=== PATIENT | female | born 1940 | race Caucasian/White ===

== ENCOUNTER 2016-11-06 11:53 | Emergency (ER) | payer OTHER ==
[2016-11-06 12:02] VITALS: BP 139/68; PULSE 83; TEMP 98.2; BMI 27.3
--- NOTE | 2016-11-06 12:31 | PDOC ---
History of Present Illness - General Chief Complaint: Headache Stated Complaint: HEADACHE Time Seen by Provider: 11/06/16 12:29 History Source: Patient Exam Limitations: No Limitations - History of Present Illness Initial Comments: 11/06/16 12:31 CHIEF COMPLAINT: Headache HISTORY OF PRESENT ILLNESS: This is a 76 year old female with a history of NIDDM , HTN, HLD, and ?CVA vs TIA (family report that she had right-sided weakness and facial droop which resolved, Aggrenox is on medication list) who presents complaining of four days of headache. Pain started in the right side of her head but is now generalized. She has associated intermittent blurred vision and dizziness. She reports left arm numbness and to a lesser degree, left leg numbness. She denies focal weakness, change in speech, nausea/vomiting, fevers/ chills, difficulty ambulating, or any other symptoms. She has had similar headaches before, but they usually resolve quickly. This one has not improved with Tylenol. PCP is Dr. Anne REVIEW OF SYSTEMS: GENERAL/CONSTITUTIONAL: No fever or chills. No weakness. No weight change. HEAD, EYES, EARS, NOSE AND THROAT: Intermittent blurred vision. No ear pain or discharge. No sore throat. CARDIOVASCULAR: No chest pain or palpitations. RESPIRATORY: No cough, wheezing, or shortness of breath. GASTROINTESTINAL: No nausea, vomiting, diarrhea or constipation. GENITOURINARY: No dysuria, frequency, or change in urination. MUSCULOSKELETAL: No joint or muscle swelling or pain. No neck or back pain. SKIN: No rash or easy bruising. NEUROLOGIC: See HPI. PSYCHIATRIC: No depression or anxiety. ENDOCRINE: No increased thirst. No abnormal weight change. HEMATOLOGIC/LYMPHATIC: No anemia, easy bleeding, or history of blood clots. ALLERGIC/IMMUNOLOGIC: No hives or skin allergy. No latex allergy. PHYSICAL EXAM: GENERAL: The patient is awake, alert, and fully oriented, in no acute distress. HEAD: Normal with no signs of trauma. ENT: Pupils equal, round and reactive to light, extraocular movements intact, sclera anicteric, conjunctiva clear. Neck supple. LUNGS: Clear to auscultation bilaterally. Normal excursion. No respiratory distress or use of accessory muscles. CV: RRR, S1/S2, no MRG. Cap refill < 2 sec. ABDOMEN: Soft, non-distended, non-tender. EXTREMITIES: Normal range of motion, no edema. NEUROLOGICAL: Normal speech, normal gait. CN II-XII grossly intact. PSYCH: Normal mood, normal affect. SKIN: Warm, dry, normal turgor, no rashes or lesions noted. NIH Stroke Scale - Last Known Well Date/Time & Onset Date Last Known Well: 11/02/16 - Initial Evaluation Level of consciousness: Alert Ask patient the month and their age: Answers both correctly Ask patient to open & close eyes; make fist and let go: Obeys both correctly Best gaze (horizontal eye movement): Normal Visual field testing: No visual field loss Facial paresis (Show teeth/raise eyebrows/close eyes tight): Normal symmetrical movement Motor Function: Left Arm: Normal Motor Function: Right Arm: Normal (extends arm 90 (or 45) degrees for 10 seconds without drift Motor Function: Left Leg: Normal (extends leg 30 degrees for 5 seconds without drift) Motor Function: Right Leg: Drift Limb Ataxia: No ataxia Sensory(Use pinprick test arms,legs,trunk,face/side to side): Normal Best language (Describe picture, name items, read sentences): No Aphasia Dysarthria (read several words): Normal articulation Extinction and Inattention: No abnormality - Total Score NIH Stroke Scale Score: 1 Past History - Past Medical History Allergies/Adverse Reactions: Allergies Allergy/AdvReac Type Severity Reaction Status Date / Time No Known Allergies Allergy Verified 11/06/16 11:59 Home Medications: Ambulatory Orders Aspirin/Dipyridamole [Aggrenox -] 1 combo PO BID 10/21/15 Carvedilol [Coreg] 6.25 mg PO BID 10/21/15 Glipizide 10 mg PO BID 10/21/15 Lisinopril [Prinivil] 10 mg PO DAILY 10/21/15 Omeprazole 20 mg PO DAILY 10/21/15 Rosuvastatin Calcium [Crestor] 10 mg PO HS 10/21/15 Sitagliptin Phosphate [Januvia] 100 mg PO DAILY 10/21/15 Ursodiol [Actigall] 300 mg PO BID 10/21/15 Meclizine HCl 25 mg PO TID #30 tablet 10/22/15 Diabetes: Yes GI Disorders: Yes (gerd) HTN: Yes Hypercholesterolemia: Yes Suicide Attempt (Hx): No - Surgical History Cholecystectomy: Yes (TRANSFUSED) Orthopedic Surgery: Yes (HIP SX RIGHT) - Immunization History Immunization Up to Date: Yes - Psycho/Social/Smoking Cessation Hx Anxiety: No Suicidal Ideation: No Smoking History: Never smoked Have you smoked in the past 12 months: No Information on smoking cessation initiated: No Hx Alcohol Use: No Drug/Substance Use Hx: No Substance Use Type: None *Physical Exam - Vital Signs Last Vital Signs Temp Pulse Resp BP Pulse Ox 98.2 F 83 17 139/68 98 11/06/16 11:59 11/06/16 11:59 11/06/16 11:59 11/06/16 11:59 11/06/16 11:59 ED Treatment Course - LABORATORY CBC & Chemistry Diagram: 11/06/16 13:18 11/06/16 13:18 Medical Decision Making - Medical Decision Making 11/06/16 13:35 A/P: 76 year old female with headache, blurred vision, and left leg and arm numbness. Concerning for CVA, but well outside TPA window. 1. EKG 2. Head CT 3. Cardiac labs 4. Reglan/Benadryl for headache 5. Re-assess 11/06/16 14:[address]: No acute intracranial process. 11/06/16 16:[address] Hernandez. No indication for admission. Recommends adding ESR/ CRP. CRP is <0.3. Will dc with office followup. Reviewed with family who feel comfortable with this plan. *DC/Admit/Observation/Transfer Diagnosis at time of Disposition: Left upper extremity numbness Headache Qualifiers: Headache type: unspecified Headache chronicity pattern: acute headache Intractability: not intractable Qualified Code(s): R51 - Headache - Discharge Dispostion Disposition: HOME Condition at time of disposition: Improved Admit: No - Referrals Referrals: Kathleen Anne [Primary Care Provider] - Lefty Hernandez MD [Staff Physician] - Call tomorrow (Neurologist) - Patient Instructions Printed Discharge Instructions: DI for Headache Additional Instructions: -Continue all of your prescribed medications -Follow up with your primary care doctor as well as a neurologist (referral enclosed) this week -Return for worsening headache, weakness in the arms or legs, change in speech, or any other concerning symptoms Print Language: MAORI
[2016-11-06] MEDS ORDERED: METOCLOPRAMIDE HCL INJECTION 10 MG/2 ML VIAL IVPB ONE (13:09)
[2016-11-06] MEDS ORDERED: SODIUM CHLORIDE 1,000 ML IV SCH (13:15)
[2016-11-06] MEDS ORDERED: METOCLOPRAMIDE HCL INJECTION 10 MG/2 ML VIAL ONE (13:30)
[2016-11-06 13:36] LABS: BASOPHIL 0.6 % (0-2.0); EOSINOPHIL 0.1 % (0-4.5); MCH 29.7 pg (25.7-33.7); MCHC 33.9 g/dl (32.0-36.0); MEAN CELL VOLUME 87.7 fl (80-96); MEAN PLT VOLUME 7.8 fl (7.5-11.1); NEUTROPHILS 66.7 % (42.8-82.8); PLATELET COUNT 235 K/MM3 (134-434); RDW 14.1 % (11.6-15.6); WHITE BLOOD COUNT 4.7 K/mm3 (4.0-10.0)
[2016-11-06 13:53] LABS: CALCIUM 8.3 mg/dL (8.5-10.1)
[2016-11-06 13:59] LABS: ALBUMIN 3.4 g/dl (3.4-5.0); ANION GAP 9 (8-16); BILIRUBIN,TOTAL 0.4 mg/dL (0.2-1.0); CHOLESTEROL 140 mg/dL (50-200); CO2 26 mmol/L (21-32); CPK 89 IU/L (26-192); CREATININE 0.6 mg/dL (0.55-1.02); GLUCOSE,RANDOM 214 mg/dL (74-106); SGOT/AST 22 U/L (15-37); SGPT/ALT 22 U/L (12-78); TOT PROT 6.8 g/dl (6.4-8.2)
[2016-11-06 14:02] LABS: ALK PHOS 90 U/L (45-117); TROPONIN I < 0.02 ng/ml (0.00-0.05)
[2016-11-06 14:09] LABS: INR 1.04 (0.82-1.09); PROTHROMBIN TIME (PATIENT) 11.5 SEC (9.98-11.88)
[2016-11-06 14:37] LABS: URINE APPEARANCE CLEAR; URINE BILIRUBIN NEGATIVE (NEGATIVE); URINE BLOOD 1+ (NEGATIVE); URINE COLOR STRAW; URINE GLUCOSE (UA) 2+ (NEGATIVE); URINE KETONE NEGATIVE (NEGATIVE); URINE LEUK ESTERASE NEGATIVE (NEGATIVE); URINE NITRITE NEGATIVE (NEGATIVE); URINE PROTEIN NEGATIVE (NEGATIVE); URINE UROBILINOGEN NEGATIVE mg/dL (0.2-1.0)
[2016-11-06 14:38] LABS: LDL CHOLESTEROL (ONLY SJRH) 65 mg/dL (5-100)
[2016-11-06 14:56] LABS: URINE BACTERIA RARE /hpf (NONE SEEN); URINE RBC 1 /hpf (0-3); URINE WBC 1 /hpf (3-5)
[2016-11-06 15:25] LABS: C-REACTIVE PROTEIN < 0.3 MG/DL (0.00-0.3)
--- NOTE | 2016-11-06 17:45 | EKG ---
Test Reason : Blood Pressure : / mmHG Vent. Rate : 080 BPM Atrial Rate : 080 BPM P-R Int : 168 ms QRS Dur : 078 ms QT Int : 386 ms P-R-T Axes : 052 025 073 degrees QTc Int : 445 ms NORMAL SINUS RHYTHM NORMAL ECG WHEN COMPARED WITH ECG OF 18-MAY-2014 01:22, NO SIGNIFICANT CHANGE WAS FOUND Confirmed by PIA MCINTOSH MD ([id number]) on 11/06/2016 5:45:01 PM Referred By: Confirmed By:PIA MCINTOSH MD
== END 2016-11-06 16:40 | disposition home or self-care (01) ==
LOC: JER 11:53
PROC: 3E033GC Introduction of Other Therapeutic Substance into Peripheral Vein, Percutaneous Approach (ICD-10-PCS; principal; 2016-11-06)
DX: R51 Headache (principal); R20.0 Anesthesia of skin; I10 Essential (primary) hypertension; E11.9 Type 2 diabetes mellitus without complications; Z79.84 Long term (current) use of oral hypoglycemic drugs; E78.00 Pure hypercholesterolemia, unspecified
CPT/HCPCS: 36415; 70450-TC; 80053; 81003; 81015; 82465; 83718; 83721; 84478; 84484; 85025; 85610; 85651; 86140; 86850; 86900; 86901; 93005; 93010; 96374; 96375; 99282-25

== ENCOUNTER 2016-11-29 11:34 | Emergency (ER) | payer OTHER ==
[2016-11-29 11:42] VITALS: BP 151/75; PULSE 92; TEMP 98; BMI 27.1
--- NOTE | 2016-11-29 12:16 | PDOC ---
History of Present Illness - General Chief Complaint: Urinary Problem Stated Complaint: FEVER, URINARY BURNING SENSATION Time Seen by Provider: 11/29/16 11:48 History Source: Patient - History of Present Illness Timing/Duration: reports: constant Quality: reports: burning Past History - Past Medical History Allergies/Adverse Reactions: Allergies Allergy/AdvReac Type Severity Reaction Status Date / Time No Known Allergies Allergy Verified 11/29/16 11:41 Home Medications: Ambulatory Orders Aspirin/Dipyridamole [Aggrenox -] 1 combo PO BID 10/21/15 Carvedilol [Coreg] 6.25 mg PO BID 10/21/15 Glipizide 10 mg PO BID 10/21/15 Lisinopril [Prinivil] 10 mg PO DAILY 10/21/15 Omeprazole 20 mg PO DAILY 10/21/15 Rosuvastatin Calcium [Crestor] 10 mg PO HS 10/21/15 Sitagliptin Phosphate [Januvia] 100 mg PO DAILY 10/21/15 Ursodiol [Actigall] 300 mg PO BID 10/21/15 Meclizine HCl 25 mg PO TID #30 tablet 10/22/15 Cephalexin [Keflex] 500 mg PO BID #14 capsule 11/29/16 Diabetes: Yes GI Disorders: Yes (gerd) HTN: Yes Hypercholesterolemia: Yes Suicide Attempt (Hx): No - Surgical History Cholecystectomy: Yes Orthopedic Surgery: Yes (HIP SX RIGHT) - Immunization History Immunization Up to Date: Yes - Psycho/Social/Smoking Cessation Hx Anxiety: No Suicidal Ideation: No Smoking History: Never smoked Have you smoked in the past 12 months: No Hx Alcohol Use: No Drug/Substance Use Hx: No Substance Use Type: None Review of Systems - Review of Systems Constitutional: No: Chills, Fever ABD/GI: No: Nausea, Vomiting : Yes: Dysuria. No: Flank Pain, Hematuria *Physical Exam - Vital Signs Last Vital Signs Temp Pulse Resp BP Pulse Ox 98.0 F 92 H 20 151/75 98 11/29/16 11:37 11/29/16 11:37 11/29/16 11:37 11/29/16 11:37 11/29/16 11:37 - Physical Exam General Appearance: Yes: Appropriately Dressed. No: Apparent Distress HEENT: positive: Normal Voice Neck: positive: Supple Respiratory/Chest: negative: Respiratory Distress Gastrointestinal/Abdominal: positive: Soft. negative: Tender Musculoskeletal: negative: CVA Tenderness Integumentary: positive: Dry, Warm Neurologic: positive: Fully Oriented, Alert, Normal Mood/Affect Medical Decision Making - Medical Decision Making 11/29/16 12:13 76-year-old female, history of NIDDM, HTN, HLD, GERD, UTIs, here with burning with urination 4 days. Denies hematuria, flank pain, nausea, vomiting, fever or chills. No history of kidney stones See exam Dysuria Stable and well deysi w/ no e/o pyelo No h/o renal stones -ua/cx 11/29/16 12:47 UA w/ protein, leuks and bld on ua. Will treat (prior sensitivity reviewed). Reasons to return d/w pt and family 11/29/16 12:48 *DC/Admit/Observation/Transfer Diagnosis at time of Disposition: UTI (urinary tract infection) Qualifiers: Urinary tract infection type: acute cystitis Hematuria presence: without hematuria Qualified Code(s): N30.00 - Acute cystitis without hematuria - Discharge Dispostion Disposition: HOME Condition at time of disposition: Good - Prescriptions Prescriptions: Cephalexin [Keflex] 500 mg PO BID #14 capsule - Referrals Referrals: Kathleen Anne [Primary Care Provider] - - Patient Instructions Printed Discharge Instructions: Urinary Tract Infection Additional Instructions: Take antibiotics as directed and return for worsening of symptoms Otherwise, follow up with your PMD
[2016-11-29 12:30] LABS: URINE APPEARANCE TURBID; URINE BILIRUBIN NEGATIVE (NEGATIVE); URINE BLOOD 2+ (NEGATIVE); URINE COLOR AMBER; URINE GLUCOSE (UA) 3+ (NEGATIVE); URINE KETONE NEGATIVE (NEGATIVE); URINE NITRITE NEGATIVE (NEGATIVE); URINE UROBILINOGEN NEGATIVE mg/dL (0.2-1.0)
[2016-11-29 12:31] LABS: URINE LEUK ESTERASE 2+ (NEGATIVE); URINE PROTEIN 1+ (NEGATIVE)
[2016-11-29 12:43] LABS: URINE BACTERIA MANY /hpf (NONE SEEN); URINE RBC 10 /hpf (0-3); URINE WBC 4342 /hpf (3-5)
== END 2016-11-29 13:04 | disposition home or self-care (01) ==
LOC: JERFT 11:34
DX: N30.00 Acute cystitis without hematuria (principal); I10 Essential (primary) hypertension; E11.9 Type 2 diabetes mellitus without complications; Z79.84 Long term (current) use of oral hypoglycemic drugs; K21.9 Gastro-esophageal reflux disease without esophagitis; E78.00 Pure hypercholesterolemia, unspecified
CPT/HCPCS: 81003; 81015; 87086; 87186; 99281-25

== ENCOUNTER 2017-02-03 16:19 | Inpatient (IN) | payer OTHER ==
[2017-02-03 16:34] LABS: PH,URINE 7.5 (4.5-8); URINE BILIRUBIN Negative (NEGATIVE); URINE GLUCOSE (UA) Negative (NEGATIVE); URINE KETONE Negative (NEGATIVE); URINE NITRITE Negative (NEGATIVE); URINE UROBILINOGEN 0.2 (0.2-1.0)
[2017-02-03 16:35] LABS: URINE APPEARANCE HAZY; URINE BLOOD Trace-intact (NEGATIVE); URINE COLOR YELLOW; URINE LEUK ESTERASE TRACE (NEGATIVE); URINE PROTEIN 2+ (NEGATIVE)
[2017-02-03] MEDS ORDERED: SODIUM CHLORIDE 0.9% 1000 ML INFUS.BAG IV ONE ×2 (16:39→18:30)
[2017-02-03 16:40] LABS: URINE BACTERIA FEW /hpf (NEGATIVE)
[2017-02-03] MEDS ORDERED: ONDANSETRON 4 MG/2 ML VIAL ONE (16:54)
[2017-02-03] MEDS ORDERED: MECLIZINE HCL 25 MG TABLET (FP) PO ONE (17:01)
[2017-02-03] MEDS ORDERED: ONDANSETRON 4 MG/2 ML VIAL IVPUSH ONE (17:01)
[2017-02-03] MEDS ORDERED: MECLIZINE HCL 25 MG TABLET (FP) ONE (17:05)
--- NOTE | 2017-02-03 17:06 | PDOC ---
History of Present Illness - General History Source: Patient, Family, Old Records Exam Limitations: No Limitations - History of Present Illness Initial Comments: 02/03/17 17:09 The patient is a 77 year old female, accompanied by family member, with a past medical history of DM, GERD, hypertension, hyperlipidemia, and gallstones who presents to the emergency department today with cold like symptoms for one week. The patient reports subjective fever and chills, dysuria, back and flank pain, left arm numbness, headache, nausea, vertigo and lightheadedness. The patient states that she has had pain when urinating for one week. The patient states that her muscle pain ,nausea, vertigo, and lightheadedness began this morning. The patient states that she took 8 tylenol this AM with minimal relief of symptoms. Patient notes decreased appetite but denies vomiting. <Lc Calderon - Last Filed: 02/03/17 17:09> <Parisa Grady - Last Filed: 02/03/17 17:23> <Duyen Ramon - Last Filed: 02/03/17 22:37> - General Chief Complaint: Cold Symptoms Stated Complaint: fever,chills Past History <Lc Calderon - Last Filed: 02/03/17 17:09> - Past Medical History Diabetes: Yes GI Disorders: Yes (gerd) HTN: Yes Hypercholesterolemia: Yes - Surgical History Cholecystectomy: Yes Orthopedic Surgery: Yes (HIP SX RIGHT) - Immunization History Immunization Up to Date: Yes - Suicide/Smoking/Psychosocial Hx Smoking History: Never smoked Have you smoked in the past 12 months: No Hx Alcohol Use: No Drug/Substance Use Hx: No Substance Use Type: None <Parisa Grady - Last Filed: 02/03/17 17:23> <Duyen Ramon - Last Filed: 02/03/17 22:37> - Past Medical History Allergies/Adverse Reactions: Allergies Allergy/AdvReac Type Severity Reaction Status Date / Time No Known Allergies Allergy Verified 02/03/17 16:20 Home Medications: Ambulatory Orders Carvedilol [Coreg] 6.25 mg PO BID 10/21/15 Glipizide 10 mg PO BID 10/21/15 Lisinopril [Prinivil] 10 mg PO DAILY 10/21/15 Omeprazole 20 mg PO DAILY 10/21/15 Rosuvastatin Calcium [Crestor] 10 mg PO HS 10/21/15 Sitagliptin Phosphate [Januvia] 100 mg PO DAILY 10/21/15 Clopidogrel Bisulfate [Plavix -] 75 mg PO DAILY 02/03/17 Gabapentin [Neurontin -] 100 mg PO BID 02/03/17 Review of Systems - Review of Systems Able to Perform ROS?: Yes Comments:: 02/03/17 17:09 GENERAL/CONSTITUTIONAL: (+) Fever or chills. No weakness. HEAD, EYES, EARS, NOSE AND THROAT: No change in vision. No ear pain or discharge. No sore throat. GASTROINTESTINAL: (+) Nausea. No vomiting, diarrhea or constipation. GENITOURINARY: (+) dysuria. No frequency, or change in urination. CARDIOVASCULAR: No chest pain or shortness of breath. RESPIRATORY: No cough, wheezing, or hemoptysis. MUSCULOSKELETAL: (+) Back pain. SKIN: No rash NEUROLOGIC: (+) headache, vertigo, left arm numbness. No loss of consciousness ENDOCRINE:(+) No increased thirst. No abnormal weight change. Decreased appetite HEMATOLOGIC/LYMPHATIC: No anemia, easy bleeding, or history of blood clots. ALLERGIC/IMMUNOLOGIC: No hives or skin allergy. <Lc Calderon - Last Filed: 02/03/17 17:09> *Physical Exam - Vital Signs Last Vital Signs Temp Pulse Resp BP Pulse Ox 98.5 F 96 H 17 94/46 98 02/03/17 16:20 02/03/17 16:20 02/03/17 16:20 02/03/17 16:54 02/03/17 16:20 - Physical Exam Comments: 02/03/17 17:10 GENERAL: Awake, alert, and fully oriented, in no acute distress HEAD: No signs of trauma EYES: PERRLA, EOMI, sclera anicteric, conjunctiva clear ENT: Auricles normal inspection, nares patent, Moist mucosa NECK: Normal ROM, supple, no lymphadenopathy, JVD, or masses LUNGS: Breath sounds equal, clear to auscultation bilaterally. No wheezes, and no crackles HEART: Regular rate and rhythm, normal S1 and S2, no murmurs, rubs or gallops ABDOMEN: (+) Soft, nontender, b/l CVA tenderness normoactive bowel sounds. No guarding, no rebound. No masses EXTREMITIES: Normal range of motion, no edema. No clubbing or cyanosis. No cords, erythema, or tenderness NEUROLOGICAL: Normal speech positive michelle halls [place] to the left with horizontal nystagmus, normal gait SKIN: Warm, Dry, normal turgor, no rashes or lesions noted. <Lc Calderon - Last Filed: 02/03/17 17:09> - Vital Signs Last Vital Signs Temp Pulse Resp BP Pulse Ox 98.5 F 96 H 17 94/46 98 02/03/17 16:20 02/03/17 16:20 02/03/17 16:20 02/03/17 16:54 02/03/17 16:20 <Parisa Grady - Last Filed: 02/03/17 17:23> - Vital Signs Last Vital Signs Temp Pulse Resp BP Pulse Ox 98.5 F 81 17 104/48 98 02/03/17 16:20 02/03/17 18:24 02/03/17 16:20 02/03/17 18:35 02/03/17 18:24 <Duyen Ramon - Last Filed: 02/03/17 22:37> Heart Score/ECG Review #1 General ECG Interpretation: Sinus Rhythm, Normal Rate (86), Normal Intervals, No acute ischemic changes <Parisa Grady - Last Filed: 02/03/17 17:23> ED Treatment Course - LABORATORY CBC & Chemistry Diagram: 02/03/17 16:53 02/03/17 16:53 - ADDITIONAL ORDERS Additional order review: Laboratory Results 02/03/17 16:29 Urine Color Yellow Urine Appearance Hazy Urine pH 7.5 Ur Specific [place] 1.015 Urine Protein 2+ H Urine Glucose (UA) Negative Urine Ketones Negative Urine Blood Trace-intact H Urine Nitrite Negative Urine Bilirubin Negative Urine Urobilinogen 0.2 Ur Leukocyte Esterase Trace H Urine RBC 5-10 Urine WBC 5-10 Ur Epithelial Cells Few Amorphous Urates Few Urine Bacteria Few - Medications Given in the ED: ED Medications Discontinued Medications Generic Name Dose Route Start Last Admin Trade Name Freq PRN Reason Stop Dose Admin Meclizine HCl 25 mg 02/03/17 17:01 02/03/17 17:07 Antivert - PO 02/03/17 17:02 25 mg ONCE ONE Administration Ondansetron HCl 4 mg 02/03/17 17:01 02/03/17 17:07 Zofran Injection IVPUSH 02/03/17 17:02 4 mg ONCE ONE Administration Sodium Chloride 1,000 ml 02/03/17 16:39 02/03/17 16:54 Normal Saline - IV 02/03/17 16:40 1,000 ml ONCE ONE Administration <Lc Calderon - Last Filed: 02/03/17 17:09> - LABORATORY CBC & Chemistry Diagram: 02/03/17 16:53 02/03/17 16:53 - ADDITIONAL ORDERS Additional order review: Laboratory Results 02/03/17 16:29 Urine Color Yellow Urine Appearance Hazy Urine pH 7.5 Ur Specific [place] 1.015 Urine Protein 2+ H Urine Glucose (UA) Negative Urine Ketones Negative Urine Blood Trace-intact H Urine Nitrite Negative Urine Bilirubin Negative Urine Urobilinogen 0.2 Ur Leukocyte Esterase Trace H Urine RBC 5-10 Urine WBC 5-10 Ur Epithelial Cells Few Amorphous Urates Few Urine Bacteria Few - RADIOLOGY Radiology Studies Ordered: Category Date Time Status HEAD CT WITHOUT CONTRAST [CT] Stat CT Scan 02/03/17 17:01 Ordered CHEST PA & LAT [RAD] Stat Radiology 02/03/17 16:26 Taken - Medications Given in the ED: ED Medications Discontinued Medications Generic Name Dose Route Start Last Admin Trade Name Freq PRN Reason Stop Dose Admin Sodium Chloride 1,000 ml 02/03/17 16:39 02/03/17 16:54 Normal Saline - IV 02/03/17 16:40 1,000 ml ONCE ONE Administration <Parisa Grady - Last Filed: 02/03/17 17:23> - LABORATORY CBC & Chemistry Diagram: 02/03/17 16:53 02/03/17 16:53 - ADDITIONAL ORDERS Additional order review: Laboratory Results 02/03/17 02/03/17 02/03/17 17:02 16:53 16:29 Sodium 129 L Potassium 4.5 Chloride 97 L Carbon Dioxide 23 Anion Gap 9 BUN 18 Creatinine 1.3 Creat Clearance w eGFR 39.51 Random Glucose 236 H Calcium 8.8 Total Bilirubin 0.3 AST 19 ALT 13 Alkaline Phosphatase 64 Creatine Kinase 66 Troponin I < 0.03 L Total Protein 6.7 Albumin 3.7 Urine Color Yellow Urine Appearance Hazy Urine pH 7.5 Ur Specific [place] 1.015 Urine Protein 2+ H Urine Glucose (UA) Negative Urine Ketones Negative Urine Blood Trace-intact H Urine Nitrite Negative Urine Bilirubin Negative Urine Urobilinogen 0.2 Ur Leukocyte Esterase Trace H Urine RBC 5-10 Urine WBC 5-10 Ur Epithelial Cells Few Amorphous Urates Few Urine Bacteria Few 02/03/17 17:06 Influenza Types A,B Antigen (ANIRUD[facility]) - Preliminary Nasopharyngeal Swab - Preliminary 02/03/17 16:53 RBC 3.84 MCV 87.9 MCHC 34.5 RDW 14.6 MPV 8.3 Neutrophils % 88.5 H Lymphocytes % 6.2 L Monocytes % 5.2 Eosinophils % 0.1 Basophils % 0.0 - Medications Given in the ED: ED Medications Discontinued Medications Generic Name Dose Route Start Last Admin Trade Name Freq PRN Reason Stop Dose Admin Ceftriaxone Sodium 1 gm/ 50 mls @ 100 mls/hr 02/03/17 18:46 02/03/17 19:01 Dextrose IVPB 02/03/17 19:15 100 mls/hr ONCE ONE Administration Meclizine HCl 25 mg 02/03/17 17:01 02/03/17 17:07 Antivert - PO 02/03/17 17:02 25 mg ONCE ONE Administration Ondansetron HCl 4 mg 02/03/17 17:01 02/03/17 17:07 Zofran Injection IVPUSH 02/03/17 17:02 4 mg ONCE ONE Administration Sodium Chloride 1,000 ml 02/03/17 16:39 02/03/17 16:54 Normal Saline - IV 02/03/17 16:40 1,000 ml ONCE ONE Administration Sodium Chloride 1,000 ml 02/03/17 18:30 02/03/17 18:35 Normal Saline - IV 02/03/17 18:31 1,000 ml ONCE ONE Administration <Duyen Ramon - Last Filed: 02/03/17 22:37> Medical Decision Making - Medical Decision Making 02/03/17 17:02 77 yo F h/o htn hld, here with vertigo or dizziness. started this am. has had urinary frequency and dysuria x one week. subjective fever and chills. took tylenol at 8 am. no cough. now having flank pain. pt states has headache. has both vertigo and lightheaded component. no chest pain, but left arm tingling. naausea, no vomiting. decreased po intake. on exam normal cerebellar exam gait normal. finger to nose normal. bilat cva tenderness. abd soft nt nd. skin warm and dry. pos josee hallpike to left differential: dehydration anemia electrolyte abnormality, sepsis, pneumonia. vertigo. plan ct head labs septic workup. flu swab. cxr. <Parisa Grady - Last Filed: 02/03/17 17:23> - Medical Decision Making 02/03/17 22:31 I received the patient on signout. She states that she was feeling unwell for the past 5 days. Today in the AM she developed chills and a fever. She took 2 tyylenol at 8am and none since. SHe is afebrile in the ER> SHe complains of head tension and headache and a feeling of "noise" in her head "like a river" Pt also has dizziness and she is nauseous. Pt normally eats very little and she is hypotensive and hyponatremic in the ER. Pt has small leukocytes in her urine and the previous MD wanted to treat her for UTI. Pt receiving rocephin in the ER. CT scan signed out to me. Pt has a mastoiditis. Pt will have blood cultures sent and she will be treated shazia aye as well 1g for the mastoiditis. Pt is feeling better in the ER. However, I will admot for the mastoiditis and parenteral abx as needed. Further neuro eval in the AM as well as LP if deemed necessary. Pt has no neck stiffness in the ER. Her WBC elevation is likely due to the mastoiditis. Pt needs to be further evaluated before we diagnose her with UTI. Pt appears well and her neuro exam is normal at this time. 02/03/17 22:37 Patient Name: NIDIA HOOVER THIS IS A PRELIMINARY REPORT FROM [facility] DATE OF SERVICE: 2017-02-03 18:35:22 IMAGES: 69 EXAM: CT HEAD without contrast HISTORY:77-year-old female vertigo. COMPARISON: None. FINDINGS: No acute intracranial hemorrhage mass effect or midline shift. The ventricles sulci and basilar cisterns are mildly prominent consistent with mild volume loss. Mild nonspecific periventricular predominant low density throughout the deep white matter is most likely due to mild small vessel ischemic white matter disease. Chronic lacunar infarcts in the bilateral basal ganglia. Calcified arteriosclerosis of the cavernous carotids noted. Complete opacification of left mastoid air cells consistent with moderate to severe acute left mastoiditis. The sinuses and right mastoid air cells are clear within the field- of-view. The calvarium is intact. IMPRESSION: Moderate to severe acute left mastoiditis. No acute intracranial hemorrhage mass effect or midline shift. Mild nonspecific periventricular predominant low density throughout the deep white matter is most likely due to mild small vessel ischemic white matter disease. Chronic lacunar infarcts in the bilateral basal ganglia. Calcified arteriosclerosis of the cavernous carotids noted. <Duyen Ramon - Last Filed: 02/03/17 22:37> *DC/Admit/Observation/Transfer - Attestations Scribe Attestion: 02/03/17 17:10 Documentation prepared by Lc Calderon, acting as medical records library professor for Parisa Grady MD. <Lc Calderon - Last Filed: 02/03/17 17:09> <Parisa Grady - Last Filed: 02/03/17 17:23> - Discharge Dispostion Admit: Yes <Duyen Ramon - Last Filed: 02/03/17 22:37> Diagnosis at time of Disposition: Mastoiditis, acute, Hypovolemia, Hyponatremia - Discharge Dispostion Condition at time of disposition: Guarded
[2017-02-03 17:11] LABS: EOSINOPHIL 0.1 % (0-4.5); MCH 30.3 pg (25.7-33.7); MCHC 34.5 g/dl (32.0-36.0); MEAN CELL VOLUME 87.9 fl (80-96); MEAN PLT VOLUME 8.3 fl (7.5-11.1); NEUTROPHILS 88.5 % (42.8-82.8); PLATELET COUNT 238 K/MM3 (134-434); RDW 14.6 % (11.6-15.6); WHITE BLOOD COUNT 12.3 K/mm3 (4.0-10.8)
[2017-02-03 17:19] LABS: ALBUMIN 3.7 g/dl (3.5-5.0); ALK PHOS 64 U/L (32-92); ANION GAP 9 (8-16); BILIRUBIN,TOTAL 0.3 mg/dl (0.2-1.0); CALCIUM 8.8 mg/dl (8.4-10.2); CO2 23 mmol/L (22-28); CREATININE 1.3 mg/dl (0.6-1.3); GLUCOSE,RANDOM 236 mg/dl (74-106); SGOT/AST 19 U/L (10-42); SGPT/ALT 13 U/L (10-40); TOT PROT 6.7 g/dl (6.4-8.3)
[2017-02-03 17:29] LABS: CPK 66 IU/L (26-192)
[2017-02-03 17:39] LABS: TROPONIN I (DFP) < 0.03 ng/ml (0.03-0.50)
[2017-02-03] MEDS ORDERED: CEFTRIAXONE 1 GM in DEXTROSE 5%-WATER - 50 ML IVPB ONE (18:46)
[2017-02-03] MEDS ORDERED: cefTRIAXone SODIUM 1 GM VIAL ONE (18:54)
[2017-02-03] MEDS ORDERED: VANCOMYCIN 1,000 MG in DEXTROSE 5%-WATER - 250 ML IVPB ONE (20:35)
[2017-02-03] MEDS ORDERED: VANCOMYCIN 1,000 MG VIAL (RESTRICTED TO ID ONLY) ONE (20:38)
--- NOTE | 2017-02-03 21:06 | HP ---
CHIEF COMPLAINT: Cold Symptoms, Back/Flank Pain, Vertigo PCP: Doctor not on Staff HISTORY OF PRESENT ILLNESS: This is a 77 y/o woman with a past medical history of Diabetes Mellitus, HTN, HLD, Hypothyroidism, GERD. Who presents to the ED with her family with cold symptoms x 1 week, Vertigo, lightheadedness, lumbar/flank pain, tinnitus since this morning. Patient is Chadian speaking, her daughter translated. The patient had a headache last night, then in the morning she developed fever and chills which she took Tylenol. Patient reports a "water runny noise" to her R ear. Patient reports having hearing loss to her L-ear for years without treatment. Patient denies CP, AP, V/D, constipation, dysuria. ER course was notable for: (1) WBC 12.3 with L- shift (2) NA 129 (3) CT Head- No ICH, mass effect, or midline shift, moderate to severe acute left mastoiditis Recent Travel: None PAST MEDICAL HISTORY: DM HTN HLD Hypothyroidism GERD PAST SURGICAL HISTORY: Cholescystectomy Hysterectomy Social History: Smoking: Never Alcohol: None Drugs: None Lives with spouse, ambulates with cane Family History: Non-Contributory Allergies No Known Allergies Allergy (Verified 02/03/17 16:20) HOME MEDICATIONS: Home Medications Medication Instructions Recorded Carvedilol [Coreg] 6.25 mg PO BID 10/21/15 Glipizide 10 mg PO BID 10/21/15 Lisinopril [Prinivil] 10 mg PO DAILY 10/21/15 Omeprazole 20 mg PO DAILY 10/21/15 Rosuvastatin Calcium [Crestor] 10 mg PO HS 10/21/15 Sitagliptin Phosphate [Januvia] 100 mg PO DAILY 10/21/15 Clopidogrel Bisulfate [Plavix -] 75 mg PO DAILY 02/03/17 Gabapentin [Neurontin -] 100 mg PO BID 02/03/17 REVIEW OF SYSTEMS CONSTITUTIONAL: fever, chills Absent: diaphoresis, generalized weakness, malaise, loss of appetite, weight change HEENT: Absent: rhinorrhea, nasal congestion, throat pain, throat swelling, difficulty swallowing, mouth swelling, ear pain, eye pain, visual changes CARDIOVASCULAR: lightheadedness Absent: chest pain, syncope, palpitations, irregular heart rate, peripheral edema RESPIRATORY: Absent: cough, shortness of breath, dyspnea with exertion, orthopnea, wheezing, stridor, hemoptysis GASTROINTESTINAL: nausea Absent: abdominal pain, abdominal distension, vomiting, diarrhea, constipation, melena, hematochezia GENITOURINARY: dysuria, flank pain Absent: frequency, urgency, hesitancy, hematuria, genital pain MUSCULOSKELETAL: back pain Absent: myalgia, arthralgia, joint swelling, neck pain SKIN: Absent: rash, itching, pallor HEMATOLOGIC/IMMUNOLOGIC: Absent: easy bleeding, easy bruising, lymphadenopathy, frequent infections ENDOCRINE: Absent: unexplained weight gain, unexplained weight loss, heat intolerance, cold intolerance NEUROLOGIC: headache Absent: focal weakness or paresthesias, dizziness, unsteady gait, seizure, mental status changes, bladder or bowel incontinence, PSYCHIATRIC: Absent: anxiety, depression, suicidal or homicidal ideation, hallucinations. PHYSICAL EXAMINATION Vital Signs - 24 hr 02/03/17 02/03/17 02/03/17 16:20 16:54 18:24 Temperature 98.5 F Pulse Rate 96 H Pulse Rate [ 81 Right] Respiratory 17 Rate Blood Pressure 94/46 94/46 Blood Pressure 104/48 [Left Arm] O2 Sat by Pulse 98 98 Oximetry (%) 02/03/17 18:35 Temperature Pulse Rate Pulse Rate [ Right] Respiratory Rate Blood Pressure 104/48 Blood Pressure [Left Arm] O2 Sat by Pulse Oximetry (%) GENERAL: Awake, alert, and fully oriented, in no acute distress. HEAD: Normal with no signs of trauma. EYES: Pupils equal, round and reactive to light, extraocular movements intact, sclera anicteric, conjunctiva clear. No lid lag. EARS, NOSE, THROAT: Ears normal, nares patent, oropharynx clear without exudates. Dry mucous membranes. NECK: Normal range of motion, supple without lymphadenopathy, JVD, or masses. LUNGS: Breath sounds equal, clear to auscultation bilaterally. No wheezes, and no crackles. No accessory muscle use. HEART: Regular rate and rhythm, normal S1 and S2 without murmur, rub or gallop. ABDOMEN: Soft, nontender, not distended, normoactive bowel sounds, no guarding, no rebound, no masses. No hepatomegaly or splenomegaly. MUSCULOSKELETAL: Normal range of motion at all joints. No bony deformities or tenderness. No CVA tenderness. UPPER EXTREMITIES: 2+ pulses, warm, well-perfused. No cyanosis. No clubbing. No peripheral edema. LOWER EXTREMITIES: 2+ pulses, warm, well-perfused. No calf tenderness. No peripheral edema. NEUROLOGICAL: Cranial nerves II-XII intact. Normal speech. No nuchal rigidity. Antalgic gait with cane PSYCHIATRIC: Cooperative. Good eye contact. Appropriate mood and affect. SKIN: Warm, dry, normal turgor, no rashes or lesions noted, normal capillary refill. Laboratory Results - last 24 hr 02/03/17 02/03/17 02/03/17 16:29 16:53 16:53 WBC 12.3 H RBC 3.84 Hgb 11.6 Hct 33.8 MCV 87.9 MCH 30.3 MCHC 34.5 RDW 14.6 Plt Count 238 MPV 8.3 Neutrophils % 88.5 H Lymphocytes % 6.2 L Monocytes % 5.2 Eosinophils % 0.1 Basophils % 0.0 Sodium 129 L Potassium 4.5 Chloride 97 L Carbon Dioxide 23 Anion Gap 9 BUN 18 Creatinine 1.3 Creat Clearance w eGFR 39.51 Random Glucose 236 H Calcium 8.8 Total Bilirubin 0.3 AST 19 ALT 13 Alkaline Phosphatase 64 Creatine Kinase Troponin I Total Protein 6.7 Albumin 3.7 Urine Color Yellow Urine Appearance Hazy Urine pH 7.5 Ur Specific [place] 1.015 Urine Protein 2+ H Urine Glucose (UA) Negative Urine Ketones Negative Urine Blood Trace-intact H Urine Nitrite Negative Urine Bilirubin Negative Urine Urobilinogen 0.2 Ur Leukocyte Esterase Trace H Urine RBC 5-10 Urine WBC 5-10 Ur Epithelial Cells Few Amorphous Urates Few Urine Bacteria Few 02/03/17 17:02 WBC RBC Hgb Hct MCV MCH MCHC RDW Plt Count MPV Neutrophils % Lymphocytes % Monocytes % Eosinophils % Basophils % Sodium Potassium Chloride Carbon Dioxide Anion Gap BUN Creatinine Creat Clearance w eGFR Random Glucose Calcium Total Bilirubin AST ALT Alkaline Phosphatase Creatine Kinase 66 Troponin I < 0.03 L Total Protein Albumin Urine Color Urine Appearance Urine pH Ur Specific [place] Urine Protein Urine Glucose (UA) Urine Ketones Urine Blood Urine Nitrite Urine Bilirubin Urine Urobilinogen Ur Leukocyte Esterase Urine RBC Urine WBC Ur Epithelial Cells Amorphous Urates Urine Bacteria 02/03/17 22:37 Patient Name: NIDIA HOOVER THIS IS A PRELIMINARY REPORT FROM [facility] DATE OF SERVICE: 2017-02-03 18:35:22 IMAGES: 69 EXAM: CT HEAD without contrast HISTORY:77-year-old female vertigo. COMPARISON: None. FINDINGS: No acute intracranial hemorrhage mass effect or midline shift. The ventricles sulci and basilar cisterns are mildly prominent consistent with mild volume loss. Mild nonspecific periventricular predominant low density throughout the deep white matter is most likely due to mild small vessel ischemic white matter disease. Chronic lacunar infarcts in the bilateral basal ganglia. Calcified arteriosclerosis of the cavernous carotids noted. Complete opacification of left mastoid air cells consistent with moderate to severe acute left mastoiditis. The sinuses and right mastoid air cells are clear within the field- of-view. The calvarium is intact. IMPRESSION: Moderate to severe acute left mastoiditis. No acute intracranial hemorrhage mass effect or midline shift. Mild nonspecific periventricular predominant low density throughout the deep white matter is most likely due to mild small vessel ischemic white matter disease. Chronic lacunar infarcts in the bilateral basal ganglia. Calcified arteriosclerosis of the cavernous carotids noted. ASSESSMENT/PLAN: This is a 77 y/o woman with a PMHx of HTN, HLD, DM, Hypothyroidism, GERD, Cholelithiasis. Admitted for Acute Mastoiditis, Hyponatemia for further evaluation of their emergent condition. Plan: 1. Acute Mastoiditis - CT Head- see above - Blood Cultures- pending - +Leukocytosis with neutrophilia - Vancomycin, Ceftriaxone given in ED - Will continue Vancomycin, until preliminary report - Appreciate ID Consult - Repeat CBC in am - Monitor vitals - f/u with ENT 2. Hyponatremia - Likely secondary to dehydration - NS bolus given in ED - BMP Q4H until corrected - Na corrected at 131 - NS@42ml/hr 3. Vertigo - Likely secondary to Hyponatremia vs Mastoiditis - Meclizine given in ED - Will continue to monitor and treat with interventions accordingly - Orthostatics - Fall precautions 4. Hypertension - Patient was hypotensive on arrival - Will hold antiHTNs for now and reassess in am 5. Diabetes Mellitus - BGMs - ISS - Hold home meds for tighter glycemic control 6. Hypothyroidism - TSH in am - Continue Synthroid 7. GERD - Continue PPI 8. FEN - NS@42ml/hr - Replete Na - Low Na, Diabetic Diet 9. DVT Prophylaxis - OOB - Heparin SQ Code Status: Full Code Dispo: Requires Inpatient Admission Problem List - Problem (1) Mastoiditis, acute Code(s): H70.009 - ACUTE MASTOIDITIS WITHOUT COMPLICATIONS, UNSPECIFIED EAR (2) Headache Code(s): R51 - HEADACHE Qualifiers: Headache type: unspecified Headache chronicity pattern: acute headache Intractability: not intractable Qualified Code(s): R51 - Headache; R51 - Headache (3) Vertigo Code(s): R42 - DIZZINESS AND GIDDINESS (4) Hyponatremia Code(s): E87.1 - HYPO-OSMOLALITY AND HYPONATREMIA (5) Hypertension Code(s): I10 - ESSENTIAL (PRIMARY) HYPERTENSION (6) Hypovolemia Code(s): E86.1 - HYPOVOLEMIA (7) Hyperlipidemia Code(s): E78.5 - HYPERLIPIDEMIA, UNSPECIFIED (8) Diabetes Code(s): E11.9 - TYPE 2 DIABETES MELLITUS WITHOUT COMPLICATIONS (9) Electrolyte abnormality Code(s): E87.8 - OTH DISORDERS OF ELECTROLYTE AND FLUID BALANCE, NEC Visit type - Emergency Visit Emergency Visit: Yes ED Registration Date: 02/03/17 Care time: The patient presented to the Emergency Department on the above date and was hospitalized for further evaluation of their emergent condition. - New Patient This patient is new to me today: Yes Date on this admission: 02/03/17 - Critical Care Critical Care patient: No
[2017-02-03] MEDS ORDERED: SODIUM CHLORIDE 1,000 ML IV SCH (21:15)
[2017-02-03 21:56] VITALS: BMI 60.2
[2017-02-03] MEDS ORDERED: INSULIN (NOVOLOG) ASPART 100 UNITS/ML 10ML VIAL ONE (22:09)
[2017-02-03] MEDS: INSULIN SLIDING SCALE (NOVOLOG) 1 VIAL SQ SCH (22:11)
[2017-02-03 23:50] LABS: ANION GAP 5 (8-16); CALCIUM 7.7 mg/dl (8.4-10.2); CO2 22 mmol/L (22-28); CREATININE 0.8 mg/dl (0.6-1.3); GLUCOSE,RANDOM 176 mg/dl (74-106)
[2017-02-04] MEDS: INSULIN SLIDING SCALE (NOVOLOG) 1 VIAL SQ SCH ×3 (06:28→21:15)
--- NOTE | 2017-02-04 08:43 | PN ---
Progress Note (short form) - Note Progress Note: ID consult dictated imp/reccd 77 year old female admitted with sensation of fevers- didnot take temp at home and head cold she notes some frequency and dysuria no ear aches no history of frequent earaches no headaches no sore throat no recent antibiotics she reports chronic ear loss in left ear she notes ear discomfort RIGHT ear that has resolved since admission yesterday myalgias have resolved as well no vertigo no travel prior history of ecoli bacteremia 2014 and ecoli uti 2016 on exam she is well appearing no pharyngitis no mastoid pain per ED ct scan with LEFT mastoiditis hyponatremia leukocytosis imp/reccd clinically not c/w mastoiditis ?uri ?uti suggest rocephin for now ENT if available f/u with radiology- she had a recent CT scan this summer- would ask them to compare d/w hospitalist Problem List - Problems (1) Mastoiditis, acute Code(s): H70.009 - ACUTE MASTOIDITIS WITHOUT COMPLICATIONS, UNSPECIFIED EAR Qualifiers: Laterality: left Qualified Code(s): H70.002 - Acute mastoiditis without complications, left ear; H70.002 - Acute mastoiditis without complications, left ear (2) UTI (urinary tract infection) Code(s): N39.0 - URINARY TRACT INFECTION, SITE NOT SPECIFIED Qualifiers: Urinary tract infection type: acute cystitis Hematuria presence: without hematuria Qualified Code(s): N30.00 - Acute cystitis without hematuria; N30.00 - Acute cystitis without hematuria (3) Hyponatremia Code(s): E87.1 - HYPO-OSMOLALITY AND HYPONATREMIA
[2017-02-04 09:07] LABS: BASOPHIL 0.2 % (0-2.0); EOSINOPHIL 0.1 % (0-4.5); MCH 29.8 pg (25.7-33.7); MCHC 32.9 g/dl (32.0-36.0); MEAN CELL VOLUME 90.5 fl (80-96); MEAN PLT VOLUME 8.6 fl (7.5-11.1); NEUTROPHILS 75.7 % (42.8-82.8); PLATELET COUNT 176 K/MM3 (134-434); RDW 14.6 % (11.6-15.6); WHITE BLOOD COUNT 7.2 K/mm3 (4.0-10.8)
[2017-02-04 09:25] LABS: ANION GAP 5 (8-16); CALCIUM 8.2 mg/dl (8.4-10.2); CO2 23 mmol/L (22-28); CREATININE 0.6 mg/dl (0.6-1.3); GLUCOSE,RANDOM 95 mg/dl (74-106)
--- NOTE | 2017-02-04 09:49 | PN ---
Physical Exam: SUBJECTIVE: Patient seen and examined Pt c/o stuffy nose, left sided chest wall pain associated with coughing, and dysuria, denies sob, palpitations, PATEL, dizziness, earaches,abdominal pain, N/V/ D or chills. OBJECTIVE: Vital Signs Period Temp Pulse Resp BP Sys/Wilde Pulse Ox Last 24 Hr 98.1 F-99.2 F 88-99 18-19 132-133/50-58 95-99 GENERAL: The patient is awake, alert, and fully oriented, in no acute distress. Yoruba speaking HEAD: Normal with no signs of trauma. EYES: PERRL, extraocular movements intact, sclera anicteric, conjunctiva clear. No ptosis. ENT: Ears normal, nares patent, oropharynx clear without exudates, moist mucous membranes.- chronic Left hearing loss NECK: Trachea midline, full range of motion, supple. LUNGS: Breath sounds equal, clear to auscultation bilaterally, no wheezes, no crackles, no accessory muscle use. HEART: Regular rate and rhythm, S1, S2 without murmur, rub or gallop. ABDOMEN: Soft, nontender, nondistended, normoactive bowel sounds, no guarding, no rebound, no hepatosplenomegaly, no masses. EXTREMITIES: 2+ pulses, warm, well-perfused, no edema. NEUROLOGICAL: Cranial nerves II through XII grossly intact. Normal speech, gait not observed. PSYCH: Normal mood, normal affect. SKIN: Warm, dry, normal turgor, no rashes or lesions noted Laboratory Results - last 24 hr 02/03/17 02/03/17 02/04/17 22:01 23:41 06:00 WBC RBC Hgb Hct MCV MCH MCHC RDW Plt Count MPV Neutrophils % Lymphocytes % Monocytes % Eosinophils % Basophils % Sodium 137 137 Potassium 3.6 3.6 Chloride 110 H D 109 H Carbon Dioxide 22 23 Anion Gap 5 L 5 L BUN 13 D 9 D Creatinine 0.8 D 0.6 D POC Glucometer 159 Random Glucose 176 H D 95 D Calcium 7.7 L 8.2 L 02/04/17 02/04/17 06:00 06:02 WBC 7.2 D RBC 3.44 L Hgb 10.2 L D Hct 31.1 L MCV 90.5 MCH 29.8 MCHC 32.9 RDW 14.6 Plt Count 176 D MPV 8.6 Neutrophils % 75.7 Lymphocytes % 14.6 D Monocytes % 9.4 D Eosinophils % 0.1 Basophils % 0.2 D Sodium Potassium Chloride Carbon Dioxide Anion Gap BUN Creatinine POC Glucometer 102 Random Glucose Calcium Active Medications Generic Name Dose Route Start Last Admin Trade Name Carla PRN Reason Stop Dose Admin Ceftriaxone Sodium 1 gm 02/04/17 10:00 Rocephin 1gm Ivpb (Pre-Docked) IVPB DAILY [facility] Protocol Clopidogrel Bisulfate 75 mg 02/04/17 10:00 Plavix - PO DAILY MAN[facility] Gabapentin 100 mg 02/04/17 10:00 Neurontin - PO BID MANISH Insulin Aspart 0 vial 02/03/17 22:00 02/04/17 06:28 Novolog Vial Sliding Scale - SQ Not Given ACHS [facility] Protocol Rosuvastatin Calcium 10 mg 02/04/17 22:00 Crestor - PO HS MANISH CT Head : Chronic microvascular ischemic changes,chronic infarct and low - attenuation density again seen, no significant interval change or acute pathology identified, left mastoid effusion persist. CxR: No acute pathology ASSESSMENT/PLAN: This is a 77 y/o woman with a PMHx of HTN, HLD, DM, Hypothyroidism, GERD, Cholelithiasis, s/p GB sx, chronic left hearing loss who presents to ER c/o cold symptoms, subjective fever, Rt ear pain and dizziness. In ER,found to have Hyponatemia. *? Acute Mastoiditis vs URI- asymptomatic - CT Head- no acute pathology - Blood Cultures- pending - T99.2, wbc normalized - ID input appreciated, rec to cont on Ceftriaxone pending culture report - out pt ENT followup. - Influenza ruled out *Hyponatremia-Likely secondary to dehydration- resolved - s/p NS bolus given in ED - NA 129> 137 now * Vertigo-ikely secondary to Hyponatremia vs Mastoiditis- resolved - Meclizine given in ED - will check Orthostatics - Fall precautions * Dysuria - UA with trace leukocyte esterase - Urine culture pending - T 99.2, wbc normalized - on Ceftriaxone *Hypertension: hypotensive on arrival -Now BP stable - will restart on Coreg and monitor, will hold off Lisinopril - will monitor BP closely * ?CAD - on Plavix , pls clarify with PMD * Diabetes Mellitus - BGMs - ISS - will resume home meds - Hgb Alc pending * Hypothyroidism - TSH level pending - Continue Synthroid *GERD - Continue PPI * HDL- will cont on Statin * For neuropathy - will cont on neurontin * FEN: Low Na, Diabetic Diet *DVT Prophylaxis - OOB - Heparin SQ Code Status: Full Code Visit type - Emergency Visit Emergency Visit: Yes ED Registration Date: 02/03/17 Care time: The patient presented to the Emergency Department on the above date and was hospitalized for further evaluation of their emergent condition. - New Patient This patient is new to me today: Yes Date on this admission: 02/04/17 - Critical Care Critical Care patient: No
[2017-02-04] MEDS ORDERED: sitaGLIPtin PHOSPHATE 100 MG TABLET (FP) PO SCH (10:00)
[2017-02-04] MEDS ORDERED: PATIENT'S OWN MEDICATION (NON-FORMULARY) (Omeprazole 20 MG) PO SCH (10:00)
[2017-02-04] MEDS ORDERED: VANCOMYCIN 1,000 MG in DEXTROSE 5%-WATER - 250 ML IVPB SCH (10:00)
[2017-02-04] MEDS: CLOPIDOGREL BISULFATE 75 MG TABLET (FP) PO SCH (10:05)
[2017-02-04] MEDS: GABAPENTIN 100 MG CAPSULE (FP) PO SCH ×2 (10:05→21:14)
[2017-02-04] MEDS: cefTRIAXone 1 GM/50 ML BAG (PRE-DOCKED) IVPB SCH (10:05)
[2017-02-04] MEDS ORDERED: glipiZIDE 5 MG TABLET (FP) ONE ×2 (11:17→20:57)
[2017-02-04] MEDS: CARVEDILOL 12.5 MG TABLET (FP) PO SCH ×2 (11:42→21:14)
[2017-02-04] MEDS: glipiZIDE 10 MG TABLET (FP) PO SCH ×2 (11:44→21:14)
--- NOTE | 2017-02-04 11:47 | CONS ---
DATE OF CONSULTATION: DATE OF DICTATION: February 04, 2017 REQUESTED BY: Hospitalist service. HISTORY OF PRESENT ILLNESS: This is a 77-year-old woman originally from [place]. She lives here in [facility]. She presented to the emergency room last night with complaints of 3 days of URI symptoms. Yesterday she developed a fever after she awoke and it was accompanied by myalgias. She also noted that she had urinary frequency and dysuria. She had no associated vomiting. She had no diarrhea. She had no abdominal pain. She noted some chest discomfort with coughing. She noted some discomfort in her right ear. There was no vertigo and she had no pharyngitis or headache. In the emergency room she was evaluated and she was noted to be hyponatremic with a white count of 12.3. She had no fever. Sodium was 129 and she had a CAT scan of her head that was felt to be consistent with left-sided mastoiditis and she was admitted for further evaluation. I am asked to see her for further evaluation. She received IV fluids as well in the emergency room. This morning she was feeling quite well. She has no right-sided ear discomfort. She has no vertigo. She does not feel feverish. She feels well and is eating breakfast. She does note some discomfort when she coughs. PAST MEDICAL HISTORY: Notable for diabetes, GERD, hypertension, and hypercholesterolemia. She had E. coli bacteremia and cholangitis in 2014. She has had E. coli and UTI back in the summer of 2016 as well. PAST SURGICAL HISTORY: She is status post cholecystectomy and she is status post right hip surgery as well as a total knee replacement on the left. ALLERGIES: She has no known drug allergies. MEDICATIONS: Her medications at home include Coreg, glipizide, Prinivil, omeprazole, Crestor, Januvia, Plavix, and Neurontin. FAMILY HISTORY: Noncontributory. SOCIAL HISTORY: She is from [place]. She has lived in this country for 20 years. There is no history of any recent travel. She lives with her family members. There are no sick contacts. REVIEW OF SYSTEMS: She denies any vertigo. She denies any change in her vision. She denies any history of chronic ear infection. She has not been on any recent antibiotics. She thinks many years ago she may have had an ear infection once. She appears to have some chronic back pain and reports about a month ago that she got an injection in her upper back. PHYSICAL EXAMINATION: General: She is a thin woman in no acute distress. Vital Signs: Temperature is 99.2 which is her T-max, pulse is 99, blood pressure 132/58, respiratory rate is 19, and she is saturating 95% on room air. HEENT: She is normocephalic. Her eyes are anicteric. She has dentures. She has no thrush or pharyngitis. She has no mastoid pain on ear examination. Neck: Supple. There are no meningeal signs. Lungs: Clear to auscultation. Heart: Regular rate and rhythm. Abdomen: Soft, nontender. She has no suprapubic pain or CVA tenderness. Extremities: Lower extremities without edema. LABORATORY DATA: Notable for a white count of 12.3, hemoglobin 11.6, platelets are 238. BUN and creatinine are 13 and 0.8. Repeat sodium after fluids was 137. Urinalysis has trace leukocyte esterase with 5 to 10 white cells and cultures have been sent. Influenza screen was done which was negative. IMAGING: She had a chest x-ray which shows no acute pathology in her lungs. SUMMARY: This is a 77-year-old woman who was admitted for left mastoiditis who clinically has no signs of mastoiditis. She has no mastoid ear pain and her complaints are all related to her right ear though she does have chronic left ear loss. Question whether she has a URI and possibly UTI given the prior history. Would suggest we continue with Ceftin for now and would suggest an ENT evaluation. Would follow up with Radiology. She had a recent CAT scan this summer and would ask them to compare. This was all discussed with the hospitalist. EUGENIA MARINELLI M.D. [id number]
[2017-02-04] MEDS ORDERED: INSULIN (NOVOLOG) ASPART 100 UNITS/ML 10ML VIAL ONE (17:46)
[2017-02-04] MEDS ORDERED: ROSUVASTATIN CA 10 MG TABLET (FP) PO SCH (22:00)
[2017-02-05 05:48] VITALS: TEMP 98.6
[2017-02-05 05:50] VITALS: BP 115/55; PULSE 95
[2017-02-05] MEDS: INSULIN SLIDING SCALE (NOVOLOG) 1 VIAL SQ SCH ×2 (06:30→11:47)
[2017-02-05] MEDS ORDERED: PANTOPRAZOLE 40 MG TABLET (FP) PO SCH (07:00)
[2017-02-05] MEDS ORDERED: glipiZIDE 5 MG TABLET (FP) PO SCH (08:15)
[2017-02-05] MEDS ORDERED: sitaGLIPtin PHOSPHATE 50 MG TABLET PO SCH (08:15)
[2017-02-05] MEDS: CLOPIDOGREL BISULFATE 75 MG TABLET (FP) PO SCH (09:02)
[2017-02-05] MEDS: GABAPENTIN 100 MG CAPSULE (FP) PO SCH (09:02)
[2017-02-05] MEDS: cefTRIAXone 1 GM/50 ML BAG (PRE-DOCKED) IVPB SCH (09:03)
[2017-02-05] MEDS: CARVEDILOL 12.5 MG TABLET (FP) PO SCH (09:10)
--- NOTE | 2017-02-05 09:25 | PN ---
Progress Note, Physician History of Present Illness: Awake, alert C/O R mastoid pain No fever/ chills Denies cough/ dyspnea/ chest pain WBL WNL BC (-) Flu swab (-) - Current Medication List Current Medications: Active Medications Carvedilol (Coreg -) 6.25 mg PO BID [facility] Last Admin: 02/05/17 09:10 Dose: 6.25 mg Ceftriaxone Sodium (Rocephin 1gm Ivpb (Pre-Docked)) 1 gm IVPB DAILY [facility] PRN Reason: Protocol Last Admin: 02/05/17 09:03 Dose: 1 gm Clopidogrel Bisulfate (Plavix -) 75 mg PO DAILY [facility] Last Admin: 02/05/17 09:02 Dose: 75 mg Gabapentin (Neurontin -) 100 mg PO BID [facility] Last Admin: 02/05/17 09:02 Dose: 100 mg Glipizide (Glucotrol -) 10 mg PO BIDI [facility] Last Admin: 02/05/17 09:02 Dose: 10 mg Insulin Aspart (Novolog Vial Sliding Scale -) 0 vial SQ ACHS [facility] PRN Reason: Protocol Last Admin: 02/05/17 06:30 Dose: Not Given Pantoprazole Sodium (Protonix -) 40 mg PO ACBK [facility] Last Admin: 02/05/17 06:30 Dose: 40 mg Rosuvastatin Calcium (Crestor -) 10 mg PO HS [facility] Last Admin: 02/04/17 21:14 Dose: 10 mg Sitagliptin Phosphate (Januvia -) 100 mg PO DAILY@0700 [facility] Last Admin: 02/05/17 09:02 Dose: 100 mg - Objective Vital Signs: Vital Signs Temperature 98.6 F 02/05/17 05:47 Pulse Rate 95 H 02/05/17 05:49 Respiratory Rate 18 02/05/17 05:49 Blood Pressure 115/55 02/05/17 05:49 O2 Sat by Pulse Oximetry (%) 96 02/05/17 08:15 Constitutional: Yes: No Distress Eyes: Yes: Conjunctiva Clear HENT: Yes: Other (No mastoid tenderness) Cardiovascular: Yes: Regular Rate and Rhythm, S1, S2 Respiratory: Yes: CTA Bilaterally Gastrointestinal: Yes: Normal Bowel Sounds, Soft. No: Tenderness Edema: No Labs: CBC, BMP 02/04/17 06:00 02/04/17 06:00 Assessment/Plan URI Leukocytosis- improved Chronic L mastoid effusion by CT May substitute po ceftin 500mg bid x 7d Outpatient ENT follow up
--- NOTE | 2017-02-05 09:49 | DS ---
Physical Exam: SUBJECTIVE: Patient seen and examined OBJECTIVE: Vital Signs Period Temp Pulse Resp BP Sys/Wilde Pulse Ox Last 24 Hr 97.8 F-99.1 F 74-105 18-18 115-141/53-68 95-96 PHYSICAL EXAM GENERAL: The patient is awake, alert, and fully oriented, in no acute distress. HEAD: Normal with no signs of trauma. EYES: PERRL, extraocular movements intact, sclera anicteric, conjunctiva clear. ENT: Ears normal, nares patent, oropharynx clear without exudates, moist mucous membranes. NECK: Trachea midline, full range of motion, supple. LUNGS: Breath sounds equal, clear to auscultation bilaterally, no wheezes, no crackles, no accessory muscle use. HEART: Regular rate and rhythm, S1, S2 without murmur, rub or gallop. ABDOMEN: Soft, nontender, nondistended, normoactive bowel sounds, no guarding, no rebound, no hepatosplenomegaly, no masses. EXTREMITIES: 2+ pulses, warm, well-perfused, no edema. NEUROLOGICAL: Cranial nerves II through XII grossly intact. Normal speech, gait not observed. PSYCH: Normal mood, normal affect. SKIN: Warm, dry, normal turgor, no rashes or lesions noted. LABS Laboratory Results - last 24 hr 02/04/17 02/04/17 02/04/17 11:46 17:43 21:12 POC Glucometer 232 262 98 02/05/17 06:25 POC Glucometer 112 HOSPITAL COURSE: Date of Admission:02/03/17 Date of Discharge: 02/05/17 Minutes to complete discharge: 45 Discharge Summary Reason For Visit: ACUTE MASTOIDITIS, HYPOVOLEMIA & HYPONATREMIA Current Active Problems Hyponatremia (Acute) Hypovolemia (Acute) Mastoiditis, acute (Acute) Condition: Improved - Instructions Diet, Activity, Other Instructions: you were admitted to the hospital for mastoiditis and you were treated with IV antibiotics please continue taking ceftin (antibiotic) twice a day for 7 day Referrals: Asa Solorzano MD [Staff Physician] - 2 Weeks Disposition: HOME - Home Medications Comprehensive Discharge Medication List: Ambulatory Orders Carvedilol [Coreg] 6.25 mg PO BID 10/21/15 Glipizide 10 mg PO BID 10/21/15 Lisinopril [Prinivil] 10 mg PO DAILY 10/21/15 Omeprazole 20 mg PO DAILY 10/21/15 Rosuvastatin Calcium [Crestor] 10 mg PO HS 10/21/15 Sitagliptin Phosphate [Januvia] 100 mg PO DAILY 10/21/15 Clopidogrel Bisulfate [Plavix -] 75 mg PO DAILY 02/03/17 Gabapentin [Neurontin -] 100 mg PO BID 02/03/17
[2017-02-05 10:05] LABS: BASOPHIL 0.2 % (0-2.0); EOSINOPHIL 0.1 % (0-4.5); MCH 29.9 pg (25.7-33.7); MCHC 33.8 g/dl (32.0-36.0); MEAN CELL VOLUME 88.4 fl (80-96); NEUTROPHILS 58.7 % (42.8-82.8); PLATELET COUNT 189 K/MM3 (134-434); RDW 15.5 % (11.6-15.6); WHITE BLOOD COUNT 5.9 K/mm3 (4.0-10.0)
[2017-02-05] MEDS ORDERED: INSULIN (NOVOLOG) ASPART 100 UNITS/ML 10ML VIAL ONE (11:44)
[2017-02-05] MEDS ORDERED: FLU VACCINE QUAD 60 MCG/0.5 ML (MDV 17-18) IM ONE (12:00)
[2017-02-05] MEDS ORDERED: CEFUROXIME AXETIL 500 MG TABLET PO SCH (22:00)
--- NOTE | 2017-02-06 18:27 | EKG ---
Test Reason : Blood Pressure : / mmHG Vent. Rate : 086 BPM Atrial Rate : 086 BPM P-R Int : 176 ms QRS Dur : 080 ms QT Int : 396 ms P-R-T Axes : 058 041 068 degrees QTc Int : 473 ms NORMAL SINUS RHYTHM RSR' V1-V2 WHEN COMPARED WITH ECG OF 06-NOV-2016 13:07, NO SIGNIFICANT CHANGE WAS FOUND Confirmed by LIZET MERCADO MD ([id number]) on 02/06/2017 6:27:43 PM Referred By: VIOLA LANDON Confirmed By:LIZET MERCADO MD
== END 2017-02-05 12:50 | disposition home or self-care (01) | DRG 641 ==
LOC: FER 16:19 → FM/S 20:46
PROVIDERS: ADMIT Internal Medicine; ATTEND Nurse Practitioner Family
DX: E87.1 Hypo-osmolality and hyponatremia (principal); H70.002 Acute mastoiditis without complications, left ear; N39.0 Urinary tract infection, site not specified; E11.9 Type 2 diabetes mellitus without complications; I10 Essential (primary) hypertension; K21.9 Gastro-esophageal reflux disease without esophagitis; E78.5 Hyperlipidemia, unspecified; E86.1 Hypovolemia; E03.9 Hypothyroidism, unspecified; J06.9 Acute upper respiratory infection, unspecified; E86.0 Dehydration; R30.0 Dysuria; I25.10 Atherosclerotic heart disease of native coronary artery without angina pectoris; G62.9 Polyneuropathy, unspecified; Z79.84 Long term (current) use of oral hypoglycemic drugs
CPT/HCPCS: 36415; 70450-TC; 71020-TC; 80048; 80053; 81003; 81015; 82550; 83036; 84443; 84484; 85025; 87040; 87086; 87804; 90688; 93005; 99283-25; G0008

== ENCOUNTER 2017-02-23 19:02 | Inpatient (IN) | payer MEDICARE, OTHER ==
[2017-02-23 19:38] VITALS: BMI 24.0
--- NOTE | 2017-02-23 20:12 | PDOC ---
Attending Attestation - HPI HPI: 02/23/17 23:12 The patient is a 77 year old female, accompanied by family, with a significant past medical history of NIDDM, GERD, hypertension, hyperlipidemia, and gallstones, who presents to the emergency department with right hip pain s/p a fall at home prior to arrival. The patient reports she tripped over shoes on the floor at home and fell on her right hip. She describes the right hip pain as 10/10 in severity. She reports she has had a previous right hip replacement in the past s/p a similar fracture. She denies head injury or loss of consciousness. She denies dizziness before falling. She denies chest pain or shortness of breath. Documentation prepared by Geovanni Ellison, acting as medical dermatologist for Clement Maldonado MD. - Physicial Exam PE: 02/23/17 23:12 Vitals: Triage Vital signs reviewed General Appearance: moderate distress, well nourished well developed Cardiac: Regular rate and rhythym, no murmurs, no rubs, no gallops Lungs: Clear to auscultation bilateral, good air movement bilaterally Abdomen: Soft, non distended, normal bowel sounds, non tender to palpation Extremities: +Right leg shortening and external rotation. Distal pulses intact. Skin: Warm and dry, no rashes or lesions, no rash, no petechiae Psych: Normal mood, normal affect <Geovanni Ellison - Last Filed: 02/23/17 23:11> - Resident Resident Name: ElanaDesire - ED Attending Attestation I have performed the following: I have examined & evaluated the patient, The case was reviewed & discussed with the resident, I agree w/resident's findings & plan, Exceptions are as noted - Medical Decision Making 02/24/17 02:04 Patient with previous ORIF to right hip status post mechanical trip and fall landed on her right hip. TTP to right hip / femur Pain medication given X-ray demonstrates femur fracture at the site of previous pain Orthopedics consult and will admit to medicine for further management. 02/24/17 02:05 <Clement Maldonado - Last Filed: 02/24/17 02:05>
[2017-02-23] MEDS ORDERED: morphine CARPU-JECT 2 MG/1 ML DISP.SYRIN IVPUSH ONE (20:19)
[2017-02-23] MEDS ORDERED: HYDROmorphone HCL CARPU-JECT 1 MG/1 ML DISP.SYRIN IVPUSH ONE (20:21)
[2017-02-23] MEDS ORDERED: HYDROmorphone HCL CARPU-JECT 1 MG/1 ML DISP.SYRIN ONE (20:44)
[2017-02-23 20:57] LABS: BASOPHIL 0.2 % (0-2.0); EOSINOPHIL 0.1 % (0-4.5); MCH 29.7 pg (25.7-33.7); MCHC 33.2 g/dl (32.0-36.0); MEAN CELL VOLUME 89.2 fl (80-96); NEUTROPHILS 80.4 % (42.8-82.8); PLATELET COUNT 227 K/MM3 (134-434); RDW 14.7 % (11.6-15.6); WHITE BLOOD COUNT 7.9 K/mm3 (4.0-10.0)
[2017-02-23 20:59] LABS: INR 0.96 (0.82-1.09); PROTHROMBIN TIME (PATIENT) 10.9 SEC (9.98-11.88)
[2017-02-23 21:02] LABS: ACTIVATED PTT 33.4 SECONDS (26.9-34.4)
--- NOTE | 2017-02-23 21:10 | PDOC ---
History of Present Illness - General Chief Complaint: Injury Stated Complaint: FALL Time Seen by Provider: 02/23/17 19:42 History Source: Patient Exam Limitations: No Limitations - History of Present Illness Initial Comments: This is a 77 YOF with h/o NIDDM, HTN, right hip replacement, and left knee replacement who presents with right hip pain at 10/10 after suffering a fall at about 6 pm tonight. She explains that she was walking in her home and there were many pairs of shoes on the floor, and she tripped on them and fell onto her right hip. She denies having hit her head or lost consciousness. She did not have any preceding dizziness, chest pain, or other symptoms. The patient states that she had her right hip repaired from a prior similar fracture years ago. Past History - Past Medical History Allergies/Adverse Reactions: Allergies Allergy/AdvReac Type Severity Reaction Status Date / Time No Known Allergies Allergy Verified 02/23/17 19:28 Home Medications: Ambulatory Orders Carvedilol [Coreg] 6.25 mg PO BID 10/21/15 Glipizide 10 mg PO BID 10/21/15 Lisinopril [Prinivil] 10 mg PO DAILY 10/21/15 Omeprazole 20 mg PO DAILY 10/21/15 Rosuvastatin Calcium [Crestor] 10 mg PO HS 10/21/15 Sitagliptin Phosphate [Januvia] 100 mg PO DAILY 10/21/15 Gabapentin [Neurontin -] 100 mg PO BID 02/03/17 Acetaminophen [Tylenol .Regular Strength -] 650 mg PO Q6H PRN tablet 03/02/17 Calcium Carbonate/Vitamin D3 [Calcium 600 + Vit D 400 Softgl] 1 each PO BID #30 capsule 03/02/17 Ferrous Sulfate [Feosol] 325 mg PO DAILY@0900 #0 ud 03/02/17 Insulin Sliding Scale [Novolog Vial Sliding Scale -] 1 vial SQ ACHS units 03/02 Diabetes: Yes GI Disorders: Yes (gerd) HTN: Yes Hypercholesterolemia: Yes - Surgical History Cholecystectomy: Yes Orthopedic Surgery: Yes (HIP SX RIGHT) - Immunization History Immunization Up to Date: Yes - Suicide/Smoking/Psychosocial Hx Smoking History: Never smoked Have you smoked in the past 12 months: No Information on smoking cessation initiated: No Hx Alcohol Use: No Drug/Substance Use Hx: No Substance Use Type: None Hx Substance Use Treatment: No Review of Systems - Review of Systems Constitutional: No: Chills, Fever, Unexplained wgt Loss HEENTM: No: Nose Congestion, Throat Pain Respiratory: No: Cough, Shortness of Breath Cardiac (ROS): No: Chest Pain, Palpitations ABD/GI: No: Constipated, Diarrhea, Nausea, Vomiting : No: Burning, Dysuria Musculoskeletal: Yes: Other (right hip pain). No: Back Pain, Neck Pain Integumentary: No: Bruising, Rash Neurological: No: Headache, Numbness, Tingling, Weakness, Dizziness Endocrine: No: Unexplained Weight Gain, Unexplained Weight Loss *Physical Exam - Vital Signs Last Vital Signs Temp Pulse Resp BP Pulse Ox 98.0 F 103 H 18 203/98 99 02/23/17 19:36 02/23/17 19:36 02/23/17 19:36 02/23/17 19:36 02/23/17 19:36 - Physical Exam General Appearance: Yes: Nourished, Appropriately Dressed, Moderate Distress ( stoic), Other (pleasant older woman speaking Luxembourgish, calm but notes significant pain, accompanied at bedside by family members) HEENT: positive: EOMI, Normal Voice, Hearing Grossly Normal. negative: Scleral Icterus (R), Scleral Icterus (L), Nasal Congestion Neck: positive: Trachea midline, Supple. negative: Tender, Rigid Respiratory/Chest: positive: Lungs Clear, Normal Breath Sounds. negative: Respiratory Distress, Crackles, Rhonchi, Stridor, Wheezing Cardiovascular: positive: Regular Rhythm, Regular Rate. negative: Murmur Gastrointestinal/Abdominal: positive: Normal Bowel Sounds, Soft. negative: Tender, Organomegaly, Pulsatile Mass, Guarding Musculoskeletal: positive: Normal Inspection. negative: Decreased Range of Motion, Vertebral Tenderness Extremity: positive: Normal Capillary Refill, Normal Inspection, Normal Range of Motion, Other (right leg shortened and externally rotated, proximal lateral thigh tenderness to palpation on the right, no obvious thigh circumference asymmetry, skin to right thigh is not taught, pulses intact distally, right and left feet are roughly equal temperature). negative: Tender, Cyanosis Integumentary: positive: Normal Color, Dry, Warm. 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, Fully Oriented, Alert, Normal Mood/ Affect, Normal Response, Motor Strength 5/5 ED Treatment Course - LABORATORY CBC & Chemistry Diagram: 03/02/17 07:00 03/02/17 07:00 - RADIOLOGY Radiology Studies Ordered: Category Date Time Status CHEST X-RAY PORTABLE* [RAD] Stat Radiology 02/23/17 20:23 Ordered HIP & PELVIS-RIGHT [RAD] Stat Radiology 02/23/17 20:21 Ordered - Medications Given in the ED: ED Medications Discontinued Medications Generic Name Dose Route Start Last Admin Trade Name Carla PRN Reason Stop Dose Admin Hydromorphone HCl 1 mg 02/23/17 20:21 02/23/17 20:47 Dilaudid Injection - IVPUSH 02/23/17 20:22 1 mg ONCE ONE Administration Morphine Sulfate 2 mg 02/23/17 20:19 02/23/17 20:48 Morphine Injection - IVPUSH 02/23/17 20:20 Not Given ONCE ONE Medical Decision Making - Medical Decision Making 67 YOF with h/o NIDDM who reports GLF from tripping on shoes without preceding symptoms, no LOC. Fell onto right hip and now with 10/10 pain, on exam the RLE is shortened and externally rotated. Hypertensive on exam above 200 systolic but the patient has not had medication at this time and is asymptomatic for HTN. DDX IBNLT hip fracture and/or dislocation, pelvic fracture, prior hardware disruption, unlikely compartment syndrome. Ordered is CBCD, CMP, coags, T&S, UA cx, CXR, hip XR, dilaudid IV for sxs control. 02/23/17 21:49 The patient had been given 1 mg Dilaudid and became increasingly nauseated while in X-ray. Zofran 4 mg IV ordered and given. BP re-checked manually to be 160/80. 02/23/17 23:55 Pt's pain has been better controlled and she no longer feels nauseated or dizzy. X-ray shows femur fracture at distal apect of previously placed hardware. Spoke with Ortho PA who agrees with plan for admission. Ortho will be following the patient during admission (Dr. Castillo) and likely surgery early next week. Symphony has been microblogged. Family is concerned patient might have been having urinary symptoms. UA ordered with Sylvester placed as well. Patient admitted to inpatient service Med/Surg. *DC/Admit/Observation/Transfer Diagnosis at time of Disposition: Femur fracture, right Qualifiers: Encounter type: subsequent encounter Femur location: shaft Fracture type: closed Fracture morphology: transverse Fracture alignment: displaced Fracture healing: with routine healing Qualified Code(s): S72.321D - Displaced transverse fracture of shaft of right femur, subsequent encounter for closed fracture with routine healing - Discharge Dispostion Condition at time of disposition: Guarded Admit: Yes - Prescriptions - Referrals - Patient Instructions - Post Discharge Activity
[2017-02-23] MEDS ORDERED: ONDANSETRON 4 MG/2 ML VIAL IVPUSH ONE (21:45)
[2017-02-23 23:23] LABS: URINE APPEARANCE CLEAR; URINE BILIRUBIN NEGATIVE (NEGATIVE); URINE BLOOD 1+ (NEGATIVE); URINE COLOR STRAW; URINE GLUCOSE (UA) 3+ (NEGATIVE); URINE KETONE TRACE (NEGATIVE); URINE NITRITE NEGATIVE (NEGATIVE); URINE UROBILINOGEN NEGATIVE mg/dL (0.2-1.0)
[2017-02-23 23:27] LABS: URINE PROTEIN 2+ (NEGATIVE)
[2017-02-23 23:28] LABS: URINE MUCUS RARE; URINE RBC 4; URINE WBC < 1
[2017-02-23 23:34] LABS: ALBUMIN 3.8 g/dl (3.4-5.0); ANION GAP 13 (8-16); CO2 21 mmol/L (21-32); CREATININE 0.6 mg/dL (0.55-1.02); GLUCOSE,RANDOM 264 mg/dL (74-106); SGOT/AST 16 U/L (15-37); SGPT/ALT 20 U/L (12-78)
[2017-02-23 23:36] LABS: ALK PHOS 82 U/L (45-117); BILIRUBIN,TOTAL 0.6 mg/dL (0.2-1.0); TOT PROT 7.6 g/dl (6.4-8.2)
[2017-02-23] MEDS ORDERED: RANITIDINE HCL 150 MG TABLET (FP) PO ONE (23:54)
[2017-02-24] MEDS ORDERED: morphine SULFATE 4 MG/ML VIAL IVPUSH PRN ×3 (01:13→08:53)
--- NOTE | 2017-02-24 01:19 | HP ---
CHIEF COMPLAINT:s/p mechanical fall PCP: HISTORY OF PRESENT ILLNESS: 77 yo F significant PMHx of NIDDM, HTN, CVA on plavix, who presents with right hip pain at 10/10 after suffering a fall ealier this evening. She explains that she was walking in her home and there were many pairs of shoes on the floor, and she tripped on them and fell onto her right hip. Denies head trauma or LOC. She did not have any preceding dizziness, chest pain, or other symptoms. The patient states that she had her right hip repaired from a prior similar fracture years ago. Denies CP,PATEL, SOB, palpitations, abdominal pain, N/ V fever or chills. ER course was notable for: (1)XRAY of leg shows femoral fracture (2)Ortho consult Dr. Fang (3) Recent Travel: Denies PAST MEDICAL HISTORY:NIDDM, HTN, HLD, CVA, GERD PAST SURGICAL HISTORY:right hip replacement, and left knee replacement, bilateral cataract. Social History: Smoking:never Alcohol:denies Drugs: denies Family History: Allergies No Known Allergies Allergy (Verified 02/23/17 19:28) HOME MEDICATIONS: Home Medications Medication Instructions Recorded Carvedilol [Coreg] 6.25 mg PO BID 10/21/15 Glipizide 10 mg PO BID 10/21/15 Lisinopril [Prinivil] 10 mg PO DAILY 10/21/15 Omeprazole 20 mg PO DAILY 10/21/15 Rosuvastatin Calcium [Crestor] 10 mg PO HS 10/21/15 Sitagliptin Phosphate [Januvia] 100 mg PO DAILY 10/21/15 Clopidogrel Bisulfate [Plavix -] 75 mg PO DAILY 02/03/17 Gabapentin [Neurontin -] 100 mg PO BID 02/03/17 Cefuroxime Axetil [Ceftin -] 500 mg PO BID #14 tablet 02/05/17 REVIEW OF SYSTEMS CONSTITUTIONAL: Absent: fever, chills, diaphoresis, generalized weakness, malaise, loss of appetite, weight change HEENT: Absent: rhinorrhea, nasal congestion, throat pain, throat swelling, difficulty swallowing, mouth swelling, ear pain, eye pain, visual changes CARDIOVASCULAR: Absent: chest pain, syncope, palpitations, irregular heart rate, lightheadedness , peripheral edema RESPIRATORY: Absent: cough, shortness of breath, dyspnea with exertion, orthopnea, wheezing, stridor, hemoptysis GASTROINTESTINAL: Absent: abdominal pain, abdominal distension, nausea, vomiting, diarrhea, constipation, melena, hematochezia GENITOURINARY: Absent: dysuria, frequency, urgency, hesitancy, hematuria, flank pain, genital pain MUSCULOSKELETAL: Absent: myalgia, arthralgia, joint swelling, back pain, neck pain SKIN: Absent: rash, itching, pallor HEMATOLOGIC/IMMUNOLOGIC: Absent: easy bleeding, easy bruising, lymphadenopathy, frequent infections ENDOCRINE: Absent: unexplained weight gain, unexplained weight loss, heat intolerance, cold intolerance NEUROLOGIC: Absent: headache, focal weakness or paresthesias, dizziness, unsteady gait, seizure, mental status changes, bladder or bowel incontinence PSYCHIATRIC: Absent: anxiety, depression, suicidal or homicidal ideation, hallucinations. PHYSICAL EXAMINATION Vital Signs - 24 hr 02/23/17 19:36 Temperature 98.0 F Pulse Rate 103 H Respiratory 18 Rate Blood Pressure 203/98 O2 Sat by Pulse 99 Oximetry (%) GENERAL: AAOx3, moderate distress. HEAD: NC/AT EYES: PERRLA, EOMI, sclera anicteric, conjunctiva clear. No lid lag. EARS, NOSE, THROAT: Dry mucous membranes. NECK: Supple, No JVD LUNGS: CTAB. No wheezes, and no crackles. No accessory muscle use. HEART: RRR, normal S1 and S2. ABDOMEN: Soft, obese,nontender, not distended, normoactive bowel sounds, no guarding, no rebound, no masses. MUSCULOSKELETAL: Right leg with defomitiy of thigh. warm UPPER EXTREMITIES: 2+ pulses, warm, well-perfused. No cyanosis. No clubbing. No peripheral edema. LOWER EXTREMITIES: 2+ pulses, warm, well-perfused. No calf tenderness. No peripheral edema. Neurovascularly intact. 2+ dorsalis pedis pulses. NEUROLOGICAL: Cranial nerves II-XII intact. Normal speech. PSYCHIATRIC: Cooperative. Good eye contact. Appropriate mood and affect. SKIN: Warm, dry, normal turgor, no rashes or lesions noted, normal capillary refill. Laboratory Results - last 24 hr 02/23/17 02/23/17 02/23/17 20:35 20:35 20:35 WBC 7.9 D RBC 4.25 D Hgb 12.6 D Hct 38.0 D MCV 89.2 MCH 29.7 MCHC 33.2 RDW 14.7 Plt Count 227 D MPV 8.0 Neutrophils % 80.4 D Lymphocytes % 12.3 D Monocytes % 7.0 Eosinophils % 0.1 Basophils % 0.2 PT with INR 10.90 INR 0.96 PTT (Actin FS) 33.4 Sodium Cancelled Potassium Cancelled Chloride Cancelled Carbon Dioxide Cancelled Anion Gap Cancelled BUN Cancelled Creatinine Cancelled Creat Clearance w eGFR Cancelled Random Glucose Cancelled Calcium Cancelled Total Bilirubin Cancelled AST Cancelled ALT Cancelled Alkaline Phosphatase Cancelled Total Protein Cancelled Albumin Cancelled Urine Color Urine Appearance Urine pH Ur Specific [place] Urine Protein Urine Glucose (UA) Urine Ketones Urine Blood Urine Nitrite Urine Bilirubin Urine Urobilinogen Urine WBC (Auto) Urine RBC (Auto) Ur Epithelial Cells Urine Mucus Blood Type Antibody Screen 02/23/17 02/23/17 02/23/17 20:35 22:40 23:18 WBC RBC Hgb Hct MCV MCH MCHC RDW Plt Count MPV Neutrophils % Lymphocytes % Monocytes % Eosinophils % Basophils % PT with INR INR PTT (Actin FS) Sodium 130 L Potassium 4.3 Chloride 96 L Carbon Dioxide 21 Anion Gap 13 BUN 11 Creatinine 0.6 Creat Clearance w eGFR > 60 Random Glucose 264 H D Calcium 9.0 Total Bilirubin 0.6 D AST 16 D ALT 20 Alkaline Phosphatase 82 Total Protein 7.6 Albumin 3.8 Urine Color Straw Urine Appearance Clear Urine pH 7.0 D Ur Specific [place] 1.007 Urine Protein 2+ H Urine Glucose (UA) 3+ H Urine Ketones Trace H Urine Blood 1+ H Urine Nitrite Negative Urine Bilirubin Negative Urine Urobilinogen Negative Urine WBC (Auto) < 1 Urine RBC (Auto) 4 Ur Epithelial Cells Rare Urine Mucus Rare Blood Type A POSITIVE Antibody Screen Negative ASSESSMENT/PLAN: 77 yo F significant PMHx of NIDDM, HTN, CVA on plavix, who presents with right hip pain at 10/10 after suffering a fall ealier this evening admitted for management of femoral shaft fracture. Problem List - Problem (1) Femur fracture, right Assessment/Plan: orthopeadic surgery consult * Will continue Plavix. * Fall precautions. * pain control with Morphine 2mg IV Q6h * Zofran for nausea PRN. * Ortho consult pending. (2) H/O: CVA (cerebrovascular accident) Assessment/Plan: Will continue with plavix at this time pending ortho recommendation for surgery. (3) Diabetes Assessment/Plan: Oral hypoglycemics held * ADA diet. * ISS with novolog ACHS * BGM ACHS (4) Hyperlipidemia Assessment/Plan: Will continue with statin therapy. (5) Hypertension Assessment/Plan: BP has been well controlled - one reading of 198/84 most likely 2/2 pain. * Will continue with lisinopril and Carvedilol. Visit type - Emergency Visit Emergency Visit: Yes ED Registration Date: 02/24/17 Care time: The patient presented to the Emergency Department on the above date and was hospitalized for further evaluation of their emergent condition. - New Patient This patient is new to me today: Yes Date on this admission: 02/24/17 - Critical Care Critical Care patient: No
--- NOTE | 2017-02-24 02:55 | PDOC ---
*Physical Exam - Vital Signs Last Vital Signs Temp Pulse Resp BP Pulse Ox 98.0 F 103 H 18 203/98 99 02/23/17 19:36 02/23/17 19:36 02/23/17 19:36 02/23/17 19:36 02/23/17 19:36 ED Treatment Course - LABORATORY CBC & Chemistry Diagram: 02/23/17 20:35 02/23/17 22:40 - ADDITIONAL ORDERS Additional order review: Laboratory Results 02/23/17 02/23/17 02/23/17 23:18 22:40 20:35 PT with INR INR PTT (Actin FS) Sodium 130 L Potassium 4.3 Chloride 96 L Carbon Dioxide 21 Anion Gap 13 BUN 11 Creatinine 0.6 Creat Clearance w eGFR > 60 Random Glucose 264 H D Calcium 9.0 Total Bilirubin 0.6 D AST 16 D ALT 20 Alkaline Phosphatase 82 Total Protein 7.6 Albumin 3.8 Urine Color Straw Urine Appearance Clear Urine pH 7.0 D Ur Specific [place] 1.007 Urine Protein 2+ H Urine Glucose (UA) 3+ H Urine Ketones Trace H Urine Blood 1+ H Urine Nitrite Negative Urine Bilirubin Negative Urine Urobilinogen Negative Urine WBC (Auto) < 1 Urine RBC (Auto) 4 Ur Epithelial Cells Rare Urine Mucus Rare Blood Type A POSITIVE Antibody Screen Negative 02/23/17 02/23/17 20:35 20:35 PT with INR 10.90 INR 0.96 PTT (Actin FS) 33.4 Sodium Cancelled Potassium Cancelled Chloride Cancelled Carbon Dioxide Cancelled Anion Gap Cancelled BUN Cancelled Creatinine Cancelled Creat Clearance w eGFR Cancelled Random Glucose Cancelled Calcium Cancelled Total Bilirubin Cancelled AST Cancelled ALT Cancelled Alkaline Phosphatase Cancelled Total Protein Cancelled Albumin Cancelled Urine Color Urine Appearance Urine pH Ur Specific [place] Urine Protein Urine Glucose (UA) Urine Ketones Urine Blood Urine Nitrite Urine Bilirubin Urine Urobilinogen Urine WBC (Auto) Urine RBC (Auto) Ur Epithelial Cells Urine Mucus Blood Type Antibody Screen 02/23/17 20:35 RBC 4.25 D MCV 89.2 MCHC 33.2 RDW 14.7 MPV 8.0 Neutrophils % 80.4 D Lymphocytes % 12.3 D Monocytes % 7.0 Eosinophils % 0.1 Basophils % 0.2 - Medications Given in the ED: ED Medications Discontinued Medications Generic Name Dose Route Start Last Admin Trade Name Freq PRN Reason Stop Dose Admin Hydromorphone HCl 1 mg 02/23/17 20:21 02/23/17 20:47 Dilaudid Injection - IVPUSH 02/23/17 20:22 1 mg ONCE ONE Administration Morphine Sulfate 2 mg 02/23/17 20:19 02/23/17 20:48 Morphine Injection - IVPUSH 02/23/17 20:20 Not Given ONCE ONE Ondansetron HCl 4 mg 02/23/17 21:45 02/23/17 21:35 Zofran Injection IVPUSH 02/23/17 21:46 4 mg NOW ONE Administration Ranitidine HCl 150 mg 02/23/17 23:54 02/23/17 23:58 Zantac - PO 02/23/17 23:55 Not Given ONCE ONE Medical Decision Making - Medical Decision Making 02/24/17 02:59 Patient signed out from Dr. Huitron. Patient admitted to med/surg for femoral fracture *DC/Admit/Observation/Transfer Diagnosis at time of Disposition: Femur fracture, right Qualifiers: Encounter type: initial encounter Femur location: shaft Fracture type: closed Fracture morphology: transverse Fracture alignment: displaced Qualified Code(s) : S72.321A - Displaced transverse fracture of shaft of right femur, initial encounter for closed fracture - Discharge Dispostion Admit: Yes - Referrals - Patient Instructions - Post Discharge Activity
[2017-02-24] MEDS ORDERED: morphine CARPU-JECT 4 MG/1 ML DISP.SYRIN IVPUSH SCH (03:00)
[2017-02-24] MEDS ORDERED: morphine SULFATE 4 MG/ML VIAL ONE (03:06)
[2017-02-24] MEDS ORDERED: SODIUM CHLORIDE 1,000 ML IV SCH (05:15)
[2017-02-24] MEDS: HEPARIN NA (PORCINE) 5,000 UNITS/ML 1ML VIAL SQ SCH ×3 (06:21→21:16)
[2017-02-24] MEDS: INSULIN SLIDING SCALE (NOVOLOG) 1 VIAL SQ SCH ×4 (06:25→22:24)
--- NOTE | 2017-02-24 08:03 | PN ---
Teaching Attending Note Name of Resident: Tyrel Cagle ATTENDING PHYSICIAN STATEMENT I saw and evaluated the patient. I reviewed the resident's note and discussed the case with the resident. I agree with the resident's findings and plan as documented. SUBJECTIVE: 77 s/p Fall with fracture to right leg, unable to bear weight. Patient able to do all her ADLs before and denies chest pain, SOB, palpitations or h/o leg swelling. H/o Right ORIF. Past Medical History Cardio/Vascular HTN,Hyperlipdemia Endocrine Diabetes Mellitus OBJECTIVE: GEN: A&Ox3 in NAD HEENT: NC, AT, PERRLA, EOMI CVS: RRR, S1, S2 Lungs: CTA Abd: Soft, NT, BS+, no organomegaly Ext: Right thigh deformed and tense, nontender, no ecchymosis Neuor: Cn2-12 intact CBCD WBC 7.9 K/mm3 (4.0-10.0) D 02/23/17 20:35 RBC 4.25 M/mm3 (3.60-5.2) D 02/23/17 20:35 Hgb 12.6 GM/dL (10.7-15.3) D 02/23/17 20:35 Hct 38.0 % (32.4-45.2) D 02/23/17 20:35 MCV 89.2 fl (80-96) 02/23/17 20:35 MCHC 33.2 g/dl (32.0-36.0) 02/23/17 20:35 RDW 14.7 % (11.6-15.6) 02/23/17 20:35 Plt Count 227 K/MM3 (134-434) D 02/23/17 20:35 MPV 8.0 fl (7.5-11.1) 02/23/17 20:35 CMP Sodium 130 mmol/L (136-145) L 02/23/17 22:40 Potassium 4.3 mmol/L (3.5-5.1) 02/23/17 22:40 Chloride 96 mmol/L (98-107) L 02/23/17 22:40 Carbon Dioxide 21 mmol/L (21-32) 02/23/17 22:40 Anion Gap 13 (8-16) 02/23/17 22:40 BUN 11 mg/dL (7-18) 02/23/17 22:40 Creatinine 0.6 mg/dL (0.55-1.02) 02/23/17 22:40 Creat Clearance w eGFR > 60 (>60) 02/23/17 22:40 Random Glucose 264 mg/dL (74-106) H D 02/23/17 22:40 Calcium 9.0 mg/dL (8.5-10.1) 02/23/17 22:40 Total Bilirubin 0.6 mg/dL (0.2-1.0) D 02/23/17 22:40 AST 16 U/L (15-37) D 02/23/17 22:40 ALT 20 U/L (12-78) 02/23/17 22:40 Alkaline Phosphatase 82 U/L (45-117) 02/23/17 22:40 Total Protein 7.6 g/dl (6.4-8.2) 02/23/17 22:40 Albumin 3.8 g/dl (3.4-5.0) 02/23/17 22:40 ASSESSMENT AND PLAN: Right Femoral fracture DVT prophylaxis Ortho consult morphine 2mg q6h prn Fall risk precautions Continue home medications except aspirin hold for surgery DM2 RISS
[2017-02-24] MEDS ORDERED: CLOPIDOGREL BISULFATE 75 MG TABLET (FP) PO SCH (10:00)
[2017-02-24] MEDS: METOCLOPRAMIDE HCL INJECTION 10 MG/2 ML VIAL IVPUSH PRN ×2 (10:23→15:09)
[2017-02-24] MEDS: GABAPENTIN 100 MG CAPSULE (FP) PO SCH ×2 (10:30→21:16)
[2017-02-24] MEDS: CARVEDILOL 6.25 MG TABLET (FP) PO SCH ×2 (10:30→21:16)
[2017-02-24] MEDS: LISINOPRIL 10 MG TABLET (FP) PO SCH (10:30)
[2017-02-24] MEDS: PANTOPRAZOLE 20 MG TABLET (FP) PO SCH (10:30)
--- NOTE | 2017-02-24 11:33 | CON.ORTH ---
Consult Reason for Consultation:: right femur fx - Past Medical History Cardio/Vascular: Yes: HTN, Hyperlipdemia Endocrine: Yes: Diabetes Mellitus - Past Surgical History Past Surgical History: Yes: Cholecystectomy, Hysterectomy - Alcohol/Substance Use Hx Alcohol Use: No History of Substance Use: reports: None - Smoking History Smoking history: Never smoked Have you smoked in the past 12 months: No - Social History ADL: Independent History of Recent Travel: No Home Medications - Allergies Allergies/Adverse Reactions: Allergies Allergy/AdvReac Type Severity Reaction Status Date / Time No Known Allergies Allergy Verified 02/23/17 19:28 - Home Medications Home Medications: Ambulatory Orders Carvedilol [Coreg] 6.25 mg PO BID 10/21/15 Glipizide 10 mg PO BID 10/21/15 Lisinopril [Prinivil] 10 mg PO DAILY 10/21/15 Omeprazole 20 mg PO DAILY 10/21/15 Rosuvastatin Calcium [Crestor] 10 mg PO HS 10/21/15 Sitagliptin Phosphate [Januvia] 100 mg PO DAILY 10/21/15 Clopidogrel Bisulfate [Plavix -] 75 mg PO DAILY 02/03/17 Gabapentin [Neurontin -] 100 mg PO BID 02/03/17 Physical Exam for Ortho Vital Signs: Vital Signs Temperature 98.6 F 02/24/17 07:04 Pulse Rate 102 H 02/24/17 07:04 Respiratory Rate 18 02/24/17 07:04 Blood Pressure 149/75 02/24/17 07:04 O2 Sat by Pulse Oximetry (%) 99 02/24/17 06:56 Labs: CBC, BMP 02/23/17 20:35 02/23/17 22:40 INR, PTT INR 0.96 (0.82-1.09) 02/23/17 20:35 - Lower Extremity Hip: Yes: Right, Leg Externally Rotated, Leg Shortened, Pain, Swelling Leg: Yes: Right, Limited ROM, Pain, Swelling, Tenderness, Other (nvi) Imaging - Results X-ray: Report Reviewed, Image Reviewed Assessment/Plan 77 yo F significant PMHx of NIDDM, HTN, CVA on plavix, who presents with right hip pain at 10/10 after suffering a fall ealier this evening. She explains that she was walking in her home and there were many pairs of shoes on the floor, and she tripped on them and fell onto her right hip. Denies head trauma or LOC. She did not have any preceding dizziness, chest pain, or other symptoms. Had right hip ORIF [address] [place]. a/p- Right displaced periprosthetic femoral shaft fx Risks and benefits were d/w pt via hourly associate in detail Will require ORIF OR tentatively for Sunday as pt had last dose of plavix this am Surgical clearance Hold plavix, continue heparin until night prior to surgery NPO after midnight Sunday case d/w pts daughter d/w Dr. Castillo
--- NOTE | 2017-02-24 12:36 | HOSP ---
Subjective - Review of Symptoms Subjective: c/o pain in her legs with only minimal relief with pain medication. denies Cp, SOB, fever, chills, N/V/C/D Current Medications Generic Name Dose Route Start Last Admin Trade Name Balaq PRN Reason Stop Dose Admin Carvedilol 6.25 mg 02/24/17 10:00 02/24/17 10:30 Coreg - PO 6.25 mg BID MANISH Administration Clopidogrel Bisulfate 75 mg 02/24/17 10:00 02/24/17 10:30 Plavix - PO 75 mg DAILY MANISH Administration Gabapentin 100 mg 02/24/17 10:00 02/24/17 10:30 Neurontin - PO 100 mg BID MANISH Administration Heparin Sodium (Porcine) 5,000 unit 02/24/17 06:00 02/24/17 06:21 Heparin - SQ 5,000 unit TID MANISH Administration Sodium Chloride 1,000 mls @ 50 mls/hr 02/24/17 05:15 02/24/17 06:20 Normal Saline - IV 02/25/17 05:10 50 mls/hr ASDIR MANISH Administration Insulin Aspart 1 vial 02/24/17 07:00 02/24/17 06:25 Novolog Vial Sliding Scale - SQ 6 units ACHS MANISH Administration Protocol Lisinopril 10 mg 02/24/17 10:00 02/24/17 10:30 Prinivil PO 10 mg DAILY MANISH Administration Metoclopramide HCl 10 mg 02/24/17 08:55 02/24/17 10:23 Reglan Injection - IVPUSH 10 mg Q6H PRN Administration NAUSEA AND/OR VOMITING Morphine Sulfate 2 mg 02/24/17 08:53 02/24/17 10:26 Morphine Sulfate IVPUSH 2 mg Q6H PRN Administration PAIN LEVEL 6-10 Pantoprazole Sodium 20 mg 02/24/17 10:00 02/24/17 10:30 Protonix - PO 20 mg DAILY MANISH Administration Rosuvastatin Calcium 10 mg 02/24/17 22:00 Crestor - PO HS [facility] Last Vital Signs Temp Pulse Resp BP Pulse Ox 98.5 F 115 H 18 198/84 99 02/24/17 10:30 02/24/17 11:34 02/24/17 07:04 02/24/17 11:34 02/24/17 06:56 General NAD CV S1 S2 RRR Lungs CTA anteriorly Abdomen soft NT/ND Extremities RLE shortened and rotated CBCD WBC 7.9 K/mm3 (4.0-10.0) D 02/23/17 20:35 RBC 4.25 M/mm3 (3.60-5.2) D 02/23/17 20:35 Hgb 12.6 GM/dL (10.7-15.3) D 02/23/17 20:35 Hct 38.0 % (32.4-45.2) D 02/23/17 20:35 MCV 89.2 fl (80-96) 02/23/17 20:35 MCHC 33.2 g/dl (32.0-36.0) 02/23/17 20:35 RDW 14.7 % (11.6-15.6) 02/23/17 20:35 Plt Count 227 K/MM3 (134-434) D 02/23/17 20:35 MPV 8.0 fl (7.5-11.1) 02/23/17 20:35 CMP Sodium 130 mmol/L (136-145) L 02/23/17 22:40 Potassium 4.3 mmol/L (3.5-5.1) 02/23/17 22:40 Chloride 96 mmol/L (98-107) L 02/23/17 22:40 Carbon Dioxide 21 mmol/L (21-32) 02/23/17 22:40 Anion Gap 13 (8-16) 02/23/17 22:40 BUN 11 mg/dL (7-18) 02/23/17 22:40 Creatinine 0.6 mg/dL (0.55-1.02) 02/23/17 22:40 Creat Clearance w eGFR > 60 (>60) 02/23/17 22:40 Calcium 9.0 mg/dL (8.5-10.1) 02/23/17 22:40 Total Bilirubin 0.6 mg/dL (0.2-1.0) D 02/23/17 22:40 AST 16 U/L (15-37) D 02/23/17 22:40 ALT 20 U/L (12-78) 02/23/17 22:40 Alkaline Phosphatase 82 U/L (45-117) 02/23/17 22:40 Total Protein 7.6 g/dl (6.4-8.2) 02/23/17 22:40 Albumin 3.8 g/dl (3.4-5.0) 02/23/17 22:40 A/P 77yo F with PMH HTN, DM and CVA on plavix presented with R hip pain after mechanical fall. 1. R hip femoral fracture- s/p mechanical fall. no preeceding symptoms. NPO sunday night for ORIF Sunday. will increase morphine to optimize pain control. bedrest till surgery, maintain bernardo. will hold plavix. ortho on board. will need NANI after 2. HTN urgency- likely pain induced. re-start home medictions. optimize BP. if no improvement will adjust medications 3. Hyponatremia- likely dehydration. +ketones in urine. received 1L NS. will d/ c as eating 4. DM- hold oral agents. start iss, bgm. diabetic diet 5. CVA on plavix- hold plavix for pending surgery 6. DVT ppx- hep sq. will hold tomorrow night Physical Examination Vital Signs: Vital Signs Temperature 98.5 F 02/24/17 10:30 Pulse Rate 115 H 02/24/17 11:34 Respiratory Rate 18 02/24/17 07:04 Blood Pressure 198/84 02/24/17 11:34 O2 Sat by Pulse Oximetry (%) 99 02/24/17 06:56 Labs: CBC, BMP 02/23/17 20:35 02/23/17 22:40
[2017-02-24] MEDS: morphine SULFATE 4 MG/ML VIAL IVPUSH PRN ×2 (12:54→16:50)
[2017-02-24 16:44] LABS: URINE LEUK ESTERASE Negative (NEGATIVE)
[2017-02-24] MEDS: ROSUVASTATIN CA 10 MG TABLET (FP) PO SCH (21:16)
[2017-02-25] MEDS: morphine SULFATE 4 MG/ML VIAL IVPUSH PRN ×4 (01:39→20:47)
[2017-02-25] MEDS: HEPARIN NA (PORCINE) 5,000 UNITS/ML 1ML VIAL SQ SCH ×2 (05:36→15:18)
[2017-02-25] MEDS: INSULIN SLIDING SCALE (NOVOLOG) 1 VIAL SQ SCH ×4 (06:04→21:43)
[2017-02-25 08:10] LABS: BASOPHIL 0.1 % (0-2.0); EOSINOPHIL 0.1 % (0-4.5); MCH 29.2 pg (25.7-33.7); MEAN CELL VOLUME 88.4 fl (80-96); MEAN PLT VOLUME 8.1 fl (7.5-11.1); NEUTROPHILS 76.4 % (42.8-82.8); PLATELET COUNT 201 K/MM3 (134-434); RDW 14.5 % (11.6-15.6); WHITE BLOOD COUNT 9.9 K/mm3 (4.0-10.0)
[2017-02-25 08:33] LABS: ALBUMIN 3.1 g/dl (3.4-5.0); ALK PHOS 69 U/L (45-117); ANION GAP 13 (8-16); BILIRUBIN,TOTAL 0.8 mg/dL (0.2-1.0); CALCIUM 8.8 mg/dL (8.5-10.1); CO2 20 mmol/L (21-32); CREATININE 0.8 mg/dL (0.55-1.02); GLUCOSE,RANDOM 251 mg/dL (74-106); PHOSPHOROUS 2.5 mg/dL (2.5-4.9); SGOT/AST 17 U/L (15-37); SGPT/ALT 19 U/L (12-78); TOT PROT 6.6 g/dl (6.4-8.2)
[2017-02-25 08:38] LABS: INR 1.05 (0.82-1.09); PROTHROMBIN TIME (PATIENT) 11.9 SEC (9.98-11.88)
[2017-02-25] MEDS ORDERED: ACETAMINOPHEN 325 MG TABLET (FP) PO PRN (08:38)
[2017-02-25] MEDS: METOCLOPRAMIDE HCL INJECTION 10 MG/2 ML VIAL IVPUSH PRN ×2 (08:58→16:00)
[2017-02-25] MEDS: LISINOPRIL 10 MG TABLET (FP) PO SCH (09:00)
[2017-02-25] MEDS: PANTOPRAZOLE 20 MG TABLET (FP) PO SCH (09:00)
[2017-02-25] MEDS: GABAPENTIN 100 MG CAPSULE (FP) PO SCH ×2 (09:00→21:35)
[2017-02-25] MEDS: CARVEDILOL 6.25 MG TABLET (FP) PO SCH ×2 (09:00→21:35)
[2017-02-25] MEDS ORDERED: SODIUM CHLORIDE 1,000 ML IV SCH (10:45)
--- NOTE | 2017-02-25 12:22 | PN ---
Progress Note (short form) - Note Progress Note: c/o left sided CP radiating down her left arm intermittently for the past month. states it resolves when she presses on her chest. denies fever, chills, N /V/C/D. no complications with anesthesia in the past. METS <4. Current Medications Generic Name Dose Route Start Last Admin Trade Name Freq PRN Reason Stop Dose Admin Acetaminophen 650 mg 02/25/17 08:38 02/25/17 08:58 Tylenol - PO 650 mg Q6H PRN Administration FEVER OR PAIN Carvedilol 6.25 mg 02/24/17 10:00 02/25/17 09:00 Coreg - PO 6.25 mg BID MANISH Administration Gabapentin 100 mg 02/24/17 10:00 02/25/17 09:00 Neurontin - PO 100 mg BID MANISH Administration Heparin Sodium (Porcine) 5,000 unit 02/24/17 06:00 02/25/17 05:36 Heparin - SQ 5,000 unit TID MANISH Administration Sodium Chloride 1,000 mls @ 42 mls/hr 02/25/17 10:45 02/25/17 11:28 Normal Saline - IV 02/26/17 10:34 42 mls/hr ASDIR MANISH Administration Insulin Aspart 1 vial 02/24/17 07:00 02/25/17 11:33 Novolog Vial Sliding Scale - SQ 6 units ACHS MANISH Administration Protocol Lisinopril 10 mg 02/24/17 10:00 02/25/17 09:00 Prinivil PO 10 mg DAILY MANISH Administration Metoclopramide HCl 10 mg 02/24/17 08:55 02/25/17 08:58 Reglan Injection - IVPUSH 10 mg Q6H PRN Administration NAUSEA AND/OR VOMITING Morphine Sulfate 3 mg 02/24/17 12:36 02/25/17 09:02 Morphine Sulfate IVPUSH 3 mg Q3H PRN Administration PAIN LEVEL 6-10 Pantoprazole Sodium 20 mg 02/24/17 10:00 02/25/17 09:00 Protonix - PO 20 mg DAILY MANISH Administration Rosuvastatin Calcium 10 mg 02/24/17 22:00 02/24/17 21:16 Crestor - PO 10 mg HS MANISH Administration Last Vital Signs Temp Pulse Resp BP Pulse Ox 100.3 F H 113 H 18 122/64 97 02/25/17 05:54 02/25/17 05:54 02/25/17 05:54 02/25/17 05:54 02/24/17 21:00 General NAD CV S1 S2 RRR no chest wall tenderness Lungs decreased breath sounds B/L bases Abdomen soft NT/ND Extremities RLE shortened and rotated CBCD WBC 9.9 K/mm3 (4.0-10.0) 02/25/17 12:30 RBC 3.43 M/mm3 (3.60-5.2) L 02/25/17 12:30 Hgb 10.3 GM/dL (10.7-15.3) L 02/25/17 12:30 Hct 30.7 % (32.4-45.2) L 02/25/17 12:30 MCV 89.6 fl (80-96) 02/25/17 12:30 MCHC 33.4 g/dl (32.0-36.0) 02/25/17 12:30 RDW 14.3 % (11.6-15.6) 02/25/17 12:30 Plt Count 195 K/MM3 (134-434) 02/25/17 12:30 MPV 8.1 fl (7.5-11.1) 02/25/17 12:30 CMP Sodium 129 mmol/L (136-145) L 02/25/17 12:30 Potassium 4.4 mmol/L (3.5-5.1) 02/25/17 12:30 Chloride 97 mmol/L (98-107) L 02/25/17 12:30 Carbon Dioxide 21 mmol/L (21-32) 02/25/17 12:30 Anion Gap 11 (8-16) 02/25/17 12:30 BUN 18 mg/dL (7-18) 02/25/17 12:30 Creatinine 1.0 mg/dL (0.55-1.02) D 02/25/17 12:30 Creat Clearance w eGFR > 60 (>60) 02/25/17 06:15 Calcium 8.6 mg/dL (8.5-10.1) 02/25/17 12:30 Total Bilirubin 0.8 mg/dL (0.2-1.0) D 02/25/17 06:15 AST 17 U/L (15-37) 02/25/17 06:15 ALT 19 U/L (12-78) 02/25/17 06:15 Alkaline Phosphatase 69 U/L (45-117) 02/25/17 06:15 Total Protein 6.6 g/dl (6.4-8.2) 02/25/17 06:15 Albumin 3.1 g/dl (3.4-5.0) L 02/25/17 06:15 A/P 77yo F with PMH HTN, DM and CVA on plavix presented with R hip pain after mechanical fall. 1. R hip femoral fracture- s/p mechanical fall. plan for ORIf tomorrow. states pain is not controlled, however only requested 3 times in the past 24H. will request cardio to comment on cardio clearance as now c/o CP intermittently on exertion. cont to hold plavix. 2. CP- intermittent with radiation down the L arm. check EKG, cardiac enzymes. cardio consulted. no previous cardiac workup 3. Tachycardia- possible pain induced vs dehydration. obtain EKG to determine if sinus. give 1L NS slowly. pt is asymptomatic. cardio consulted. 4. HTN urgency- likely pain induced. now resolved. cont medications. 5. Hyponatremia- likely dehydration. will give additional IVF. monitor closely. 6. Normocytic anemia- no signs of bleeding. nory dilutional. will repeat cbc. check iron studies 7. DM- hold oral agents. start iss, bgm. diabetic diet 8. CVA on plavix- hold plavix for pending surgery 9. DVT ppx- hep sq. hold tonights dose for possible surgery tomorrow pending cardio clearance Visit type - Emergency Visit Emergency Visit: Yes ED Registration Date: 02/24/17 Care time: The patient presented to the Emergency Department on the above date and was hospitalized for further evaluation of their emergent condition. - New Patient This patient is new to me today: No - Critical Care Critical Care patient: No - Discharge Referral Referred to [facility] Med P.C.: No
[2017-02-25 13:01] LABS: MCHC 33.4 g/dl (32.0-36.0); MEAN CELL VOLUME 89.6 fl (80-96); MEAN PLT VOLUME 8.1 fl (7.5-11.1); PLATELET COUNT 195 K/MM3 (134-434); RDW 14.3 % (11.6-15.6); WHITE BLOOD COUNT 9.9 K/mm3 (4.0-10.0)
[2017-02-25 13:17] LABS: ANION GAP 11 (8-16); CALCIUM 8.6 mg/dL (8.5-10.1); CO2 21 mmol/L (21-32); GLUCOSE,RANDOM 226 mg/dL (74-106)
[2017-02-25 14:23] LABS: CPK 542 IU/L (26-192); TROPONIN I < 0.02 ng/ml (0.00-0.05)
--- NOTE | 2017-02-25 17:03 | CON.CARD ---
Consult Consult Specialty:: Cardiology Referred by:: Hospitalist Medicine Reason for Consultation:: Pre-operative cardiovascular evaluation - History of Present Illness Chief Complaint: s/p fall and right hip pain History of Present Illness: 77 s/p Fall admitted with mechanical fall tripping over shoes without syncope and fracture to right leg, unable to bear weight. Patient able to do all her ADLs before and denies chest pain, SOB, palpitations or h/o leg swelling. H/o Right ORIF. Today, she reports reproducible left sided chest wall pain, resolves when she presses on her chest. She denies dyspnea, near or true syncope , orthopnea, palpitations, PND or LE edema. - History Source History Provided By: Patient Limitations to Obtaining History: No Limitations - Past Medical History Cardio/Vascular: Yes: HTN, Hyperlipdemia Endocrine: Yes: Diabetes Mellitus - Past Surgical History Past Surgical History: Yes: Cholecystectomy, Hysterectomy - Alcohol/Substance Use Hx Alcohol Use: No History of Substance Use: reports: None - Smoking History Smoking history: Never smoked Have you smoked in the past 12 months: No - Social History ADL: Independent History of Recent Travel: No Home Medications - Allergies Allergies/Adverse Reactions: Allergies Allergy/AdvReac Type Severity Reaction Status Date / Time No Known Allergies Allergy Verified 02/23/17 19:28 - Home Medications Home Medications: Ambulatory Orders Carvedilol [Coreg] 6.25 mg PO BID 10/21/15 Glipizide 10 mg PO BID 10/21/15 Lisinopril [Prinivil] 10 mg PO DAILY 10/21/15 Omeprazole 20 mg PO DAILY 10/21/15 Rosuvastatin Calcium [Crestor] 10 mg PO HS 10/21/15 Sitagliptin Phosphate [Januvia] 100 mg PO DAILY 10/21/15 Clopidogrel Bisulfate [Plavix -] 75 mg PO DAILY 02/03/17 Gabapentin [Neurontin -] 100 mg PO BID 02/03/17 Review of Systems - Review of Systems Cardiovascular: reports: Chest Pain Musculoskeletal: reports: Decreased ROM, Joint Pain Vital Signs: Vital Signs Temperature 99 F 02/25/17 14:20 Pulse Rate 82 02/25/17 15:00 Respiratory Rate 20 02/25/17 14:20 Blood Pressure 113/58 02/25/17 15:00 O2 Sat by Pulse Oximetry (%) 96 02/25/17 09:00 Constitutional: Yes: No Distress, Calm Neck: Yes: Supple Respiratory: Yes: Regular, CTA Bilaterally Gastrointestinal: Yes: Normal Bowel Sounds, Soft Cardiovascular: Yes: Regular Rate and Rhythm JVD: No Carotid Bruit: No Heart Sounds: Yes: S1, S2 Murmur: Yes: Systolic Murmur, Grade 1 Extremities: Yes: External Rotation, Shortened Edema: No - Other Data Labs, Other Data: CBC, BMP 02/25/17 12:30 02/25/17 12:30 INR, PTT INR 1.05 (0.82-1.09) 02/25/17 06:15 Troponin, BNP 02/25/17 12:30 Troponin I < 0.02 Troponin, BNP 02/25/17 12:30 Troponin I < 0.02 Imaging - Results Chest X-ray: Report Reviewed (NAD) X-ray: Report Reviewed (Acute right femoral mid-shaft fracture) Problem List - Problems (1) Pre-operative cardiovascular examination Code(s): Z01.810 - ENCOUNTER FOR PREPROCEDURAL CARDIOVASCULAR EXAMINATION (2) History of right hip hemiarthroplasty Code(s): Z96.641 - PRESENCE OF RIGHT ARTIFICIAL HIP JOINT (3) Femur fracture, right Code(s): S72.91XA - UNSP FRACTURE OF RIGHT FEMUR, INIT FOR CLOS FX Qualifiers: Encounter type: initial encounter Femur location: shaft Fracture type: closed Fracture morphology: transverse Fracture alignment: displaced Qualified Code(s): S72.321A - Displaced transverse fracture of shaft of right femur, initial encounter for closed fracture (4) H/O: CVA (cerebrovascular accident) Code(s): Z86.73 - PRSNL HX OF TIA (TIA), AND CEREB INFRC W/O RESID DEFICITS (5) Diabetes Code(s): E11.9 - TYPE 2 DIABETES MELLITUS WITHOUT COMPLICATIONS Qualifiers: Diabetes mellitus type: type 2 Diabetes mellitus complication status: with circulatory complication Diabetes mellitus complication detail: with other circulatory complications Diabetes mellitus half-way insulin use: without half-way use Qualified Code(s): E11.59 - Type 2 diabetes mellitus with other circulatory complications (6) Hyperlipidemia Code(s): E78.5 - HYPERLIPIDEMIA, UNSPECIFIED Qualifiers: Hyperlipidemia type: pure hypercholesterolemia Qualified Code(s): E78.00 - Pure hypercholesterolemia, unspecified; E78.0 - Pure hypercholesterolemia (7) Hypertension Code(s): I10 - ESSENTIAL (PRIMARY) HYPERTENSION Qualifiers: Hypertension type: essential hypertension Qualified Code(s): I10 - Essential (primary) hypertension Assessment/Plan 1. Pre-operative cardiovascular evaluation 2. Right displaced periprosthetic femoral shaft fx plan for ORIF 3. Atypical chest pain syndrome 4. Type 2 DM 5. HTN/HCVD 6. CVA 7. Hyperlipidemia P:1. Given absence of symptoms of acute coronary syndrome, decompensated CHF or malignant arrhythmia, there are no cardiovascular contraindications against proceeding with right hip ORIF 2. Plavix held pending surgery 3. Continue carvedilol 6.25 bid, lisinopril 10 qd, Crestor 10 qhs 4. DVT and GI prophylaxis, analgesia as needed 5. Thank you for consultative opportunity
[2017-02-25] MEDS ORDERED: INSULIN DETEMIR 100 UNITS/ML MDV SQ ONE (17:29)
[2017-02-25] MEDS ORDERED: INSULIN (NOVOLOG MIX 70/30) 100 UNITS/ML MDV SQ ONE (17:30)
[2017-02-25] MEDS: ROSUVASTATIN CA 10 MG TABLET (FP) PO SCH (21:36)
[2017-02-26] MEDS: INSULIN SLIDING SCALE (NOVOLOG) 1 VIAL SQ SCH ×4 (06:03→21:53)
--- NOTE | 2017-02-26 07:55 | PN ---
Physical Exam: SUBJECTIVE: Patient seen and examined. Spoke cymro. Patient is asymptomatic, awaiting surgery today. No CP or SOB. Pain is tolerable. Low grade T last night 100.3, resolved w/o antipyretics OBJECTIVE: Vital Signs Period Temp Pulse Resp BP Sys/Wilde Pulse Ox Last 24 Hr 98.6 F-100.3 F 82-113 18-20 95-136/54-66 96 GEN: AAOx3, NAD, Lying comfortably in bed HEENT: PERRLA, EOMi, No cervical LAD CV: S1, S2, RRR LUNG: CTABL ABD: Soft, NT, ND MSK: Shortened and externally rotated R leg, 2+ pulses, neurologically intact Active Medications Generic Name Dose Route Start Last Admin Trade Name Freq PRN Reason Stop Dose Admin Acetaminophen 650 mg 02/25/17 08:38 02/25/17 08:58 Tylenol - PO 650 mg Q6H PRN Administration FEVER OR PAIN Carvedilol 6.25 mg 02/24/17 10:00 02/25/17 21:35 Coreg - PO 6.25 mg BID MANISH Administration Gabapentin 100 mg 02/24/17 10:00 02/25/17 21:35 Neurontin - PO 100 mg BID MANISH Administration Heparin Sodium (Porcine) 5,000 unit 02/24/17 06:00 02/25/17 15:18 Heparin - SQ Not Given TID [facility] Sodium Chloride 1,000 mls @ 42 mls/hr 02/25/17 10:45 02/25/17 11:28 Normal Saline - IV 02/26/17 10:34 42 mls/hr ASDIR MANISH Administration Insulin Aspart 1 vial 02/24/17 07:00 02/26/17 06:03 Novolog Vial Sliding Scale - SQ 4 units ACHS MANISH Administration Protocol Lisinopril 10 mg 02/24/17 10:00 02/25/17 09:00 Prinivil PO 10 mg DAILY MANISH Administration Metoclopramide HCl 10 mg 02/24/17 08:55 02/25/17 16:00 Reglan Injection - IVPUSH 10 mg Q6H PRN Administration NAUSEA AND/OR VOMITING Morphine Sulfate 3 mg 02/24/17 12:36 02/25/17 20:47 Morphine Sulfate IVPUSH 3 mg Q3H PRN Administration PAIN LEVEL 6-10 Pantoprazole Sodium 20 mg 02/24/17 10:00 11/19/17 09:00 Protonix - PO 20 mg DAILY MANISH Administration Rosuvastatin Calcium 10 mg 02/24/17 22:00 02/25/17 21:36 Crestor - PO 10 mg HS MANISH Administration ASSESSMENT/PLAN: Pt is a 77yo F with PMHx of CVA (on plavix), R sided ORIF from prior R proximal femoral fracture, presented w/ R hip pain s/p mechanical fall, found to have new R mid periprosthetic femoral fracture # Acute R femoral Fracture - Sustained from mechanical fall, this fracture is near her prosthetic from prior ORIF in same leg - Scheduled for surgery tomorrow, Cardio has cleared, Plavix held, hold HSQ tonight, pain control w/ Morphine # Low Grade Fever - last night, asymptomatic, resolved w/o anti-pyretics, will monitor # Chest Pain - resolved, was reproducible, cardio cleared # Hyponatremia - Likely hypovolemic, continue IVNS # Normocytic Anemia - No bleeding noted, stable, will get Fe studies # HTN - Presented in HTN urgency likely due to pain, now well controlled w/ home Lisinopril 10 daily + Coreg 6.25 BID # Hx of CVA - Continue Plavix # Hx of NIDDM - Hold PO home meds, on BGM + ISS ACHS, pt was not on Levemir HS # Hx of Peripheral Neuropathy - Continue home Gabapentin 100 BID # Hx of HLD - Continue Crestor 10 HS # Hx of GERD - Continue home PPI # FEN - IVNS @ 50cc/hr, elec WNL, Sodium controlled diabetic diet, NPO after midnight # PPX - HSQ TID, PT ordered # Dispo - Surgery tomorrow, will await reccs d/w Dr Cailin Rojas MD - PGY1 Internal Medicine Visit type - Emergency Visit Emergency Visit: No - New Patient This patient is new to me today: No - Critical Care Critical Care patient: No - Discharge Referral Referred to [facility] Med P.C.: No
[2017-02-26 08:09] LABS: BASOPHIL 0.2 % (0-2.0); EOSINOPHIL 0.2 % (0-4.5); MCH 30.1 pg (25.7-33.7); MCHC 33.7 g/dl (32.0-36.0); MEAN CELL VOLUME 89.3 fl (80-96); MEAN PLT VOLUME 8.3 fl (7.5-11.1); NEUTROPHILS 76.3 % (42.8-82.8); PLATELET COUNT 167 K/MM3 (134-434); RDW 14.3 % (11.6-15.6); WHITE BLOOD COUNT 8.2 K/mm3 (4.0-10.0)
--- NOTE | 2017-02-26 08:28 | PN ---
Progress Note (short form) - Note Progress Note: Ortho Pt seen and examined s/p right displaced periprosthetic femoral shaft fx Selected Entries 02/26/17 06:00 Temperature 99.5 F Pulse Rate 102 H Respiratory 20 Rate Blood Pressure 136/66 Laboratory Tests 02/25/17 12:30 WBC 9.9 Hgb 10.3 L Hct 30.7 L Plt Count 195 PE- R LE shortened and ER, calf soft, nt nvi a/p OR tomorrow for ORIF NPO after midnight hold AC after 10 pm d/w Dr. Fang
[2017-02-26 08:47] LABS: ANION GAP 10 (8-16); CALCIUM 7.7 mg/dL (8.5-10.1); CO2 22 mmol/L (21-32); CREATININE 0.7 mg/dL (0.55-1.02); GLUCOSE,RANDOM 218 mg/dL (74-106)
[2017-02-26 08:50] LABS: FERRITIN 47.691 ng/ml (6.9-282.5)
[2017-02-26] MEDS: LISINOPRIL 10 MG TABLET (FP) PO SCH (09:55)
[2017-02-26] MEDS: GABAPENTIN 100 MG CAPSULE (FP) PO SCH ×2 (09:55→21:43)
[2017-02-26] MEDS: PANTOPRAZOLE 20 MG TABLET (FP) PO SCH (09:55)
[2017-02-26] MEDS: CARVEDILOL 6.25 MG TABLET (FP) PO SCH (09:55)
[2017-02-26] MEDS: morphine SULFATE 4 MG/ML VIAL IVPUSH PRN ×3 (09:56→23:03)
--- NOTE | 2017-02-26 11:32 | PN ---
Progress Note, Physician History of Present Illness: Right hip discomfort adequately controlled, denies further atypical chest pain. - Current Medication List Current Medications: Active Medications Acetaminophen (Tylenol -) 650 mg PO Q6H PRN PRN Reason: FEVER OR PAIN Last Admin: 02/25/17 08:58 Dose: 650 mg Carvedilol (Coreg -) 6.25 mg PO BID [facility] Last Admin: 02/26/17 09:55 Dose: 6.25 mg Gabapentin (Neurontin -) 100 mg PO BID [facility] Last Admin: 02/26/17 09:55 Dose: 100 mg Heparin Sodium (Porcine) (Heparin -) 5,000 unit SQ TID [facility] Last Admin: 02/25/17 15:18 Dose: Not Given Insulin Aspart (Novolog Vial Sliding Scale -) 1 vial SQ ACHS [facility] PRN Reason: Protocol Last Admin: 02/26/17 06:03 Dose: 4 units Lisinopril (Prinivil) 10 mg PO DAILY [facility] Last Admin: 02/26/17 09:55 Dose: 10 mg Metoclopramide HCl (Reglan Injection -) 10 mg IVPUSH Q6H PRN PRN Reason: NAUSEA AND/OR VOMITING Last Admin: 02/25/17 16:00 Dose: 10 mg Morphine Sulfate (Morphine Sulfate) 3 mg IVPUSH Q3H PRN PRN Reason: PAIN LEVEL 6-10 Last Admin: 02/26/17 09:56 Dose: 3 mg Pantoprazole Sodium (Protonix -) 20 mg PO DAILY [facility] Last Admin: 02/26/17 09:55 Dose: 20 mg Rosuvastatin Calcium (Crestor -) 10 mg PO HS [facility] Last Admin: 02/25/17 21:36 Dose: 10 mg - Objective Vital Signs: Vital Signs Temperature 98.8 F 02/26/17 09:47 Pulse Rate 105 H 02/26/17 09:47 Respiratory Rate 18 02/26/17 09:47 Blood Pressure 128/51 02/26/17 09:47 O2 Sat by Pulse Oximetry (%) 96 02/25/17 09:00 Constitutional: Yes: No Distress, Calm Neck: Yes: Supple Cardiovascular: Yes: Regular Rate and Rhythm Respiratory: Yes: Regular, Diminished Gastrointestinal: Yes: Normal Bowel Sounds, Soft Extremities: Yes: External Rotation (Rt LE), Shortened Edema: No Labs: CBC, BMP 02/26/17 06:42 02/26/17 06:42 INR, PTT INR 1.05 (0.82-1.09) 02/25/17 06:15 Problem List - Problems (1) Pre-operative cardiovascular examination Code(s): Z01.810 - ENCOUNTER FOR PREPROCEDURAL CARDIOVASCULAR EXAMINATION (2) History of right hip hemiarthroplasty Code(s): Z96.641 - PRESENCE OF RIGHT ARTIFICIAL HIP JOINT (3) Femur fracture, right Code(s): S72.91XA - UNSP FRACTURE OF RIGHT FEMUR, INIT FOR CLOS FX Qualifiers: Encounter type: initial encounter Femur location: shaft Fracture type: closed Fracture morphology: transverse Fracture alignment: displaced Qualified Code(s): S72.321A - Displaced transverse fracture of shaft of right femur, initial encounter for closed fracture (4) H/O: CVA (cerebrovascular accident) Code(s): Z86.73 - PRSNL HX OF TIA (TIA), AND CEREB INFRC W/O RESID DEFICITS (5) Diabetes Code(s): E11.9 - TYPE 2 DIABETES MELLITUS WITHOUT COMPLICATIONS Qualifiers: Diabetes mellitus type: type 2 Diabetes mellitus complication status: with circulatory complication Diabetes mellitus complication detail: with other circulatory complications Diabetes mellitus ad terminal makeup operator insulin use: without ad terminal makeup operator use Qualified Code(s): E11.59 - Type 2 diabetes mellitus with other circulatory complications (6) Hyperlipidemia Code(s): E78.5 - HYPERLIPIDEMIA, UNSPECIFIED Qualifiers: Hyperlipidemia type: pure hypercholesterolemia Qualified Code(s): E78.00 - Pure hypercholesterolemia, unspecified; E78.0 - Pure hypercholesterolemia (7) Hypertension Code(s): I10 - ESSENTIAL (PRIMARY) HYPERTENSION Qualifiers: Hypertension type: essential hypertension Qualified Code(s): I10 - Essential (primary) hypertension Assessment/Plan 1. Pre-operative cardiovascular evaluation 2. Right displaced periprosthetic femoral shaft fx plan for ORIF tomorrow 3. Atypical chest pain syndrome 4. Type 2 DM 5. HTN/HCVD 6. CVA 7. Hyperlipidemia P:1. Given absence of symptoms of acute coronary syndrome, decompensated CHF or malignant arrhythmia, there are no cardiovascular contraindications against proceeding with right hip ORIF 2. Plavix held pending surgery 3. Continue carvedilol 6.25 bid, lisinopril 10 qd, Crestor 10 qhs 4. DVT and GI prophylaxis, analgesia as needed
--- NOTE | 2017-02-26 11:43 | EKG ---
Test Reason : Blood Pressure : / mmHG Vent. Rate : 095 BPM Atrial Rate : 095 BPM P-R Int : 162 ms QRS Dur : 080 ms QT Int : 344 ms P-R-T Axes : 055 021 069 degrees QTc Int : 432 ms NORMAL SINUS RHYTHM NORMAL ECG WHEN COMPARED WITH ECG OF 03-FEB-2017 17:13, NO SIGNIFICANT CHANGE WAS FOUND Confirmed by ISRAEL RENO MD ([id number]) on 02/26/2017 11:43:30 AM Referred By: Victor Manuel LACY Confirmed By:ISRAEL RENO MD
--- NOTE | 2017-02-26 13:31 | PN ---
Teaching Attending Note Name of Resident: Donna Rojas ATTENDING PHYSICIAN STATEMENT I saw and evaluated the patient. I reviewed the resident's note and discussed the case with the resident. I agree with the resident's findings and plan as documented. SUBJECTIVE:asymptomatic. no CP, SOB< fever, chills, N/V/C/D OBJECTIVE: Last Vital Signs Temp Pulse Resp BP Pulse Ox 98.8 F 105 H 18 128/51 96 02/26/17 09:47 02/26/17 09:47 02/26/17 09:47 02/26/17 09:47 02/25/17 09:00 General NAD CV S1 S2 RRR no murmur/rub/gallop Lungs CTA B/L no wheezing/rales/rhonchi Extrmities RLE short and external rotated ASSESSMENT AND PLAN: 77yo F with PMH HTN, DM and CVA on plavix presented with R hip pain after mechanical fall. 1. R hip femoral fracture- s/p mechanical fall. NPO for ORIF tomorrow. Pt is intermediate risk for intermediate risk procedure. evaluated by cardio with no workup necessary at this time. cont to hold plavix. 2. CP- intermittent with radiation down the L arm intermittent for the past month. now resolved. cardiac enzymes neg x1. evaluated by cardio with no workup indicated at this time. can f/u with outpatient. 3. Tachycardia- possible pain induced vs dehydration. will increase coreg to 12.5mg. monitor. cardio consulted. 4. HTN urgency- likely pain induced. now resolved. cont medications. 5. Hyponatremia- likely dehydration. improved. monitor closely. 6. Normocytic anemia- no signs of bleeding. nory dilutional. Hgb stable. iron studies pending 7. DM- re-start januvia. hold other medications. cont iss, bgm. diabetic diet 8. CVA on plavix- hold plavix for pending surgery 9. DVT ppx- hep sq. hold tonights dose for possible surgery tomorrow
[2017-02-26] MEDS ORDERED: SODIUM CHLORIDE 1,000 ML IV SCH (14:15)
[2017-02-26] MEDS: HEPARIN NA (PORCINE) 5,000 UNITS/ML 1ML VIAL SQ SCH (15:04)
[2017-02-26] MEDS: sitaGLIPtin PHOSPHATE 100 MG TABLET (FP) PO SCH (15:05)
[2017-02-26] MEDS ORDERED: PT OWN MED DRAWER 7, Y5N ONE (21:39)
[2017-02-26] MEDS ORDERED: INSULIN (NOVOLOG) ASPART 100 UNITS/ML 10ML VIAL ONE (21:40)
[2017-02-26] MEDS: CARVEDILOL 12.5 MG TABLET (FP) PO SCH (21:43)
[2017-02-26] MEDS: ROSUVASTATIN CA 10 MG TABLET (FP) PO SCH (21:44)
[2017-02-27 06:07] LABS: SERUM IRON 21 ug/dL (27-139); TOTAL IRON BINDING CAPACITY 281 ug/dL (250-450); UIBC 260 ug/dL (118-369)
[2017-02-27] MEDS: sitaGLIPtin PHOSPHATE 100 MG TABLET (FP) PO SCH (06:45)
[2017-02-27] MEDS: INSULIN SLIDING SCALE (NOVOLOG) 1 VIAL SQ SCH ×4 (06:48→21:27)
[2017-02-27 08:13] LABS: ANION GAP 9 (8-16); CALCIUM 7.6 mg/dL (8.5-10.1); CO2 22 mmol/L (21-32); CREATININE 0.5 mg/dL (0.55-1.02); GLUCOSE,RANDOM 200 mg/dL (74-106)
--- NOTE | 2017-02-27 08:16 | PN ---
Physical Exam: SUBJECTIVE: Patient seen and examined. Spoke serbian. Pt is comfortable and slept well but states she is in pain. Awaiting surgery today. Asymptomatic. No CP, no SOB< no fever, no chills. OBJECTIVE: Vital Signs Period Temp Pulse Resp BP Sys/Wilde Pulse Ox Last 24 Hr 98.8 F-99.4 F 94-106 18-20 127-164/51-78 96-96 GEN: AAOx3, NAD, Lying comfortably in bed HEENT: PERRLA, EOMi, No cervical LAD CV: S1, S2, RRR LUNG: CTABL ABD: Soft, NT, ND MSK: Shortened and externally rotated R leg, 2+ pulses, neurologically intact Laboratory Last Values WBC 8.2 K/mm3 (4.0-10.0) 02/26/17 06:42 RBC 3.08 M/mm3 (3.60-5.2) L 02/26/17 06:42 Hgb 9.3 GM/dL (10.7-15.3) L 02/26/17 06:42 Hct 27.5 % (32.4-45.2) L 02/26/17 06:42 MCV 89.3 fl (80-96) 02/26/17 06:42 MCH 30.1 pg (25.7-33.7) 02/26/17 06:42 MCHC 33.7 g/dl (32.0-36.0) 02/26/17 06:42 RDW 14.3 % (11.6-15.6) 02/26/17 06:42 Plt Count 167 K/MM3 (134-434) 02/26/17 06:42 MPV 8.3 fl (7.5-11.1) 02/26/17 06:42 Neutrophils % 76.3 % (42.8-82.8) 02/26/17 06:42 Lymphocytes % 14.0 % (8-40) 02/26/17 06:42 Monocytes % 9.3 % (3.8-10.2) 02/26/17 06:42 Eosinophils % 0.2 % (0-4.5) D 02/26/17 06:42 Basophils % 0.2 % (0-2.0) 02/26/17 06:42 PT with INR 11.90 SEC (9.98-11.88) H 02/25/17 06:15 INR 1.05 (0.82-1.09) 02/25/17 06:15 PTT (Actin FS) 35.0 SECONDS (26.9-34.4) H 02/25/17 06:15 Sodium 129 mmol/L (136-145) L 02/27/17 07:30 Potassium 4.4 mmol/L (3.5-5.1) 02/27/17 07:30 Chloride 98 mmol/L (98-107) 02/27/17 07:30 Carbon Dioxide 22 mmol/L (21-32) 02/27/17 07:30 Anion Gap 9 (8-16) 02/27/17 07:30 BUN 10 mg/dL (7-18) D 02/27/17 07:30 Creatinine 0.5 mg/dL (0.55-1.02) L D 02/27/17 07:30 Creat Clearance w eGFR > 60 (>60) 02/25/17 06:15 POC Glucometer 199 UNITS (80-120) 02/27/17 06:26 Random Glucose 200 mg/dL (74-106) H 02/27/17 07:30 Calcium 7.6 mg/dL (8.5-10.1) L 02/27/17 07:30 Phosphorus 2.5 mg/dL (2.5-4.9) 02/25/17 06:15 Magnesium 2.0 mg/dL (1.8-2.4) D 02/25/17 06:15 Iron 21 ug/dL (27-139) L 02/26/17 06:42 TIBC 281 ug/dL (250-450) 02/26/17 06:42 Iron Saturation 7 % (15-55) L 02/26/17 06:42 Ferritin 47.691 ng/ml (6.9-282.5) 02/26/17 06:42 Total Bilirubin 0.8 mg/dL (0.2-1.0) D 02/25/17 06:15 AST 17 U/L (15-37) 02/25/17 06:15 ALT 19 U/L (12-78) 02/25/17 06:15 Alkaline Phosphatase 69 U/L (45-117) 02/25/17 06:15 Creatine Kinase 542 IU/L (26-192) H 02/25/17 12:30 Creatine Kinase Index 0.3 % (0.0-5.0) 02/25/17 12:30 CK-MB (CK-2) 2.12 ng/mL (0.5-3.6) 02/25/17 12:30 Troponin I < 0.02 ng/ml (0.00-0.05) 02/25/17 12:30 Total Protein 6.6 g/dl (6.4-8.2) 02/25/17 06:15 Albumin 3.1 g/dl (3.4-5.0) L 02/25/17 06:15 Urine Color Straw 02/23/17 23:18 Urine Appearance Clear 02/23/17 23:18 Urine pH 7.0 (5.0-8.0) D 02/23/17 23:18 Ur Specific [place] 1.007 (1.001-1.035) 02/23/17 23:18 Urine Protein 2+ (NEGATIVE) H 02/23/17 23:18 Urine Glucose (UA) 3+ (NEGATIVE) H 02/23/17 23:18 Urine Ketones Trace (NEGATIVE) H 02/23/17 23:18 Urine Blood 1+ (NEGATIVE) H 02/23/17 23:18 Urine Nitrite Negative (NEGATIVE) 02/23/17 23:18 Urine Bilirubin Negative (NEGATIVE) 02/23/17 23:18 Urine Urobilinogen Negative mg/dL (0.2-1.0) 02/23/17 23:18 Ur Leukocyte Esterase Negative (NEGATIVE) 02/23/17 23:18 Urine WBC (Auto) < 1 02/23/17 23:18 Urine RBC (Auto) 4 02/23/17 23:18 Ur Epithelial Cells Rare /hpf (FEW) 02/23/17 23:18 Urine Mucus Rare 02/23/17 23:18 Blood Type A POSITIVE 02/23/17 20:35 Antibody Screen Negative 02/23/17 20:35 Active Medications Generic Name Dose Route Start Last Admin Trade Name Freq PRN Reason Stop Dose Admin Acetaminophen 650 mg 02/25/17 08:38 02/25/17 08:58 Tylenol - PO 650 mg Q6H PRN Administration FEVER OR PAIN Carvedilol 12.5 mg 02/26/17 13:26 02/26/17 21:43 Coreg - PO 12.5 mg BID MANISH Administration Ferrous Sulfate 325 mg 02/28/17 09:00 Feosol - PO DAILY@0900 [facility] Gabapentin 100 mg 02/24/17 10:00 02/26/17 21:43 Neurontin - PO 100 mg BID MANISH Administration Heparin Sodium (Porcine) 5,000 unit 02/24/17 06:00 02/26/17 15:04 Heparin - SQ 5,000 unit TID MANISH Administration Sodium Chloride 1,000 mls @ 42 mls/hr 02/26/17 14:15 02/26/17 15:05 Normal Saline - IV 42 mls/hr ASDIR MANISH Administration Insulin Aspart 1 vial 02/24/17 07:00 02/27/17 06:48 Novolog Vial Sliding Scale - SQ Not Given ACHS [facility] Protocol Lisinopril 10 mg 02/24/17 10:00 02/26/17 09:55 Prinivil PO 10 mg DAILY MANISH Administration Metoclopramide HCl 10 mg 02/24/17 08:55 02/25/17 16:00 Reglan Injection - IVPUSH 10 mg Q6H PRN Administration NAUSEA AND/OR VOMITING Morphine Sulfate 3 mg 02/24/17 12:36 02/26/17 23:03 Morphine Sulfate IVPUSH 3 mg Q3H PRN Administration PAIN LEVEL 6-10 Pantoprazole Sodium 20 mg 02/24/17 10:00 02/26/17 09:55 Protonix - PO 20 mg DAILY MANISH Administration Rosuvastatin Calcium 10 mg 02/24/17 22:00 02/26/17 21:44 Crestor - PO 10 mg HS [facility] Administration Sitagliptin Phosphate 100 mg 02/26/17 13:30 02/27/17 06:45 Januvia - PO Not Given DAILY@0700 [facility] ASSESSMENT/PLAN: Pt is a 77yo F with PMHx of CVA (on plavix), R sided ORIF from prior R proximal femoral fracture, presented w/ R hip pain s/p mechanical fall, found to have new R mid periprosthetic femoral fracture # Acute R femoral Fracture - Sustained from mechanical fall, this fracture is near her prosthetic from prior ORIF in same leg - Scheduled for surgery today, Cardio has cleared, Plavix held, HSQ held, pain is well control w/ Morphine, added bowel regimen # Chest Pain - resolved, cardio cleared # Hyponatremia - Likely hypovolemic, worsened w/ NPO status, change diet to diabetic w/o sodium control, increase rate of IVNS, obtain Ulytes # Normocytic Anemia - No bleeding noted, Fe studies suggest VLAD, will start Fe- sulfate, and bowel regimen # HTN - Mildly elevated w/ home Lisinopril 10 daily + Coreg 6.25 BID, likely rising due to pain, will monitor # Hx of CVA - Continue Plavix # Hx of NIDDM - Hold PO home meds, on BGM + ISS ACHS, pt was not on Levemir HS # Hx of Peripheral Neuropathy - Continue home Gabapentin 100 BID # Hx of HLD - Continue Crestor 10 HS # Hx of GERD - Continue home PPI # FEN - IVNS @ 100cc/hr, Diabetic diet after surgery # PPX - HSQ TID, PT ordered # Dispo - Surgery today, NIESHA sent to OR, placement underway d/w Dr Luis F Rojas MD - PGY1 Internal Medicine Visit type - Emergency Visit Emergency Visit: No - New Patient This patient is new to me today: No - Critical Care Critical Care patient: No - Discharge Referral Referred to [facility] Med P.C.: No
[2017-02-27] MEDS: LISINOPRIL 10 MG TABLET (FP) PO SCH ×2 (08:52→09:15)
[2017-02-27] MEDS: CARVEDILOL 12.5 MG TABLET (FP) PO SCH ×3 (08:52→21:23)
[2017-02-27] MEDS: PANTOPRAZOLE 20 MG TABLET (FP) PO SCH (09:16)
[2017-02-27] MEDS: GABAPENTIN 100 MG CAPSULE (FP) PO SCH ×2 (09:16→21:23)
--- NOTE | 2017-02-27 10:46 | PN ---
Progress Note, Physician Chief Complaint: Events noted Not in distress History of Present Illness: Patient was seen and examined. Awake and alert. Chart was reviewed Denies chest pain, SOB or palpitations - Current Medication List Current Medications: Active Medications Acetaminophen (Tylenol -) 650 mg PO Q6H PRN PRN Reason: FEVER OR PAIN Last Admin: 02/25/17 08:58 Dose: 650 mg Carvedilol (Coreg -) 12.5 mg PO BID [facility] Last Admin: 02/27/17 09:15 Dose: Not Given Ferrous Sulfate (Feosol -) 325 mg PO DAILY@0900 [facility] Gabapentin (Neurontin -) 100 mg PO BID [facility] Last Admin: 02/27/17 09:16 Dose: Not Given Heparin Sodium (Porcine) (Heparin -) 5,000 unit SQ TID [facility] Last Admin: 02/26/17 15:04 Dose: 5,000 unit Sodium Chloride (Normal Saline -) 1,000 mls @ 42 mls/hr IV ASDIR [facility] Last Admin: 02/26/17 15:05 Dose: 42 mls/hr Insulin Aspart (Novolog Vial Sliding Scale -) 1 vial SQ ACHS [facility] PRN Reason: Protocol Last Admin: 02/27/17 06:48 Dose: Not Given Lisinopril (Prinivil) 10 mg PO DAILY [facility] Last Admin: 02/27/17 09:15 Dose: Not Given Metoclopramide HCl (Reglan Injection -) 10 mg IVPUSH Q6H PRN PRN Reason: NAUSEA AND/OR VOMITING Last Admin: 02/25/17 16:00 Dose: 10 mg Morphine Sulfate (Morphine Sulfate) 3 mg IVPUSH Q3H PRN PRN Reason: PAIN LEVEL 6-10 Last Admin: 02/26/17 23:03 Dose: 3 mg Pantoprazole Sodium (Protonix -) 20 mg PO DAILY [facility] Last Admin: 02/27/17 09:16 Dose: Not Given Rosuvastatin Calcium (Crestor -) 10 mg PO HS [facility] Last Admin: 02/26/17 21:44 Dose: 10 mg Sitagliptin Phosphate (Januvia -) 100 mg PO DAILY@0700 [facility] Last Admin: 02/27/17 06:45 Dose: Not Given - Objective Vital Signs: Vital Signs Temperature 98.9 F 02/27/17 08:54 Pulse Rate 99 H 02/27/17 08:54 Respiratory Rate 20 02/27/17 08:54 Blood Pressure 162/72 02/27/17 08:54 O2 Sat by Pulse Oximetry (%) 96 02/26/17 21:00 Neck: Yes: Supple Cardiovascular: Yes: Regular Rate and Rhythm, S1, S2 Respiratory: Yes: CTA Bilaterally Gastrointestinal: Yes: Normal Bowel Sounds, Soft. No: Tenderness Edema: No Labs: CBC, BMP 02/26/17 06:42 02/27/17 07:30 INR, PTT INR 1.05 (0.82-1.09) 02/25/17 06:15 Problem List - Problems (1) Femur fracture, right Code(s): S72.91XA - UNSP FRACTURE OF RIGHT FEMUR, INIT FOR CLOS FX Qualifiers: Encounter type: subsequent encounter Femur location: shaft Fracture type : closed Fracture morphology: transverse Fracture alignment: displaced Fracture healing: with routine healing Qualified Code(s): S72.321D - Displaced transverse fracture of shaft of right femur, subsequent encounter for closed fracture with routine healing (2) H/O: CVA (cerebrovascular accident) Code(s): Z86.73 - PRSNL HX OF TIA (TIA), AND CEREB INFRC W/O RESID DEFICITS (3) History of right hip hemiarthroplasty Code(s): Z96.641 - PRESENCE OF RIGHT ARTIFICIAL HIP JOINT (4) Pre-operative cardiovascular examination Code(s): Z01.810 - ENCOUNTER FOR PREPROCEDURAL CARDIOVASCULAR EXAMINATION (5) Diabetes Code(s): E11.9 - TYPE 2 DIABETES MELLITUS WITHOUT COMPLICATIONS Qualifiers: Diabetes mellitus type: type 2 Diabetes mellitus complication status: with circulatory complication Diabetes mellitus complication detail: with other circulatory complications Diabetes mellitus senior care insulin use: without termite control technician use Qualified Code(s): E11.59 - Type 2 diabetes mellitus with other circulatory complications (6) Hyperlipidemia Code(s): E78.5 - HYPERLIPIDEMIA, UNSPECIFIED Qualifiers: Hyperlipidemia type: pure hypercholesterolemia Qualified Code(s): E78.00 - Pure hypercholesterolemia, unspecified; E78.0 - Pure hypercholesterolemia (7) Hypertension Code(s): I10 - ESSENTIAL (PRIMARY) HYPERTENSION Qualifiers: Hypertension type: essential hypertension Qualified Code(s): I10 - Essential (primary) hypertension Assessment/Plan 1. Pre-operative cardiovascular evaluation 2. Right displaced naomie-prosthetic femoral shaft fracture awaiting ORIF 3. Atypical chest pain syndrome 4. Type 2 DM 5. HTN/HCVD 6. CVA 7. Hyperlipidemia PLAN: 1. No absolute contraindication in proceeding with ORIF in view of absence of ischemic symptoms, decompensated congestive heart failure or malignant arrhythmias. 2. Plavix has been held pending surgery 3. Continue Carvedilol 6.25 bid, Lisinopril 10 qd and Crestor 10 qhs 4. DVT and GI prophylaxis 5. Analgesia as needed Further plans are to follow Basil Emmanuel MD
[2017-02-27] MEDS ORDERED: SODIUM CHLORIDE 1,000 ML IV SCH ×2 (11:25→18:50)
[2017-02-27] MEDS ORDERED: PROPOFOL 20 ML ONE (12:34)
[2017-02-27] MEDS ORDERED: SUCCINYLCHOLINE CHLORIDE 200 MG/10 ML VIAL ONE (12:34)
[2017-02-27] MEDS ORDERED: ceFAZolin SODIUM 1 GM VIAL ONE (13:40)
--- NOTE | 2017-02-27 14:02 | PN ---
Teaching Attending Note Name of Resident: Donna Rojas ATTENDING PHYSICIAN STATEMENT Time of evaluation: 9:45 AM I saw and evaluated the patient. I reviewed the resident's note and discussed the case with the resident. I agree with the resident's findings and plan as documented. SUBJECTIVE: Patient seen and examined. Right leg pain, otherwise no complaints. OBJECTIVE: Vital Signs Period Temp Pulse Resp BP Sys/Wilde Pulse Ox Last 24 Hr 98.9 F-99.4 F 94-106 18-20 127-164/55-78 96 Intake & Output 02/24/17 02/25/17 02/26/17 02/27/17 23:59 23:59 23:59 23:59 Intake Total 208 471 3717 Output Total 500 1550 300 Balance -60 534 -390 -300 Weight 123 lb General: lying in bed in no acute distress CVS: S1S2 regular Chest: CTAB, no rales or wheezing abdomen: soft, NT, ND, positive bowel sounds extremities: RLE abducted and externally rotated, positive pulses Home Medication List Medication Instructions Recorded Confirmed Type Carvedilol [Coreg] 6.25 mg PO BID 10/21/15 02/24/17 History Glipizide 10 mg PO BID 10/21/15 02/24/17 History Lisinopril [Prinivil] 10 mg PO DAILY 10/21/15 02/24/17 History Omeprazole 20 mg PO DAILY 10/21/15 02/24/17 History Rosuvastatin Calcium [Crestor] 10 mg PO HS 10/21/15 02/24/17 History Sitagliptin Phosphate [Januvia] 100 mg PO DAILY 10/21/15 02/24/17 History Clopidogrel Bisulfate [Plavix -] 75 mg PO DAILY 02/03/17 02/24/17 History Gabapentin [Neurontin -] 100 mg PO BID 02/03/17 02/24/17 History Active Medications Generic Name Dose Route Start Last Admin Trade Name Freq PRN Reason Stop Dose Admin Acetaminophen 650 mg 02/25/17 08:38 02/25/17 08:58 Tylenol - PO 650 mg Q6H PRN Administration FEVER OR PAIN Carvedilol 12.5 mg 02/26/17 13:26 02/27/17 09:15 Coreg - PO Not Given BID MANISH Ferrous Sulfate 325 mg 02/28/17 09:00 Feosol - PO DAILY@0900 [facility] Gabapentin 100 mg 02/24/17 10:00 02/27/17 09:16 Neurontin - PO Not Given BID [facility] Heparin Sodium (Porcine) 5,000 unit 02/24/17 06:00 02/26/17 15:04 Heparin - SQ 5,000 unit TID [facility] Administration Sodium Chloride 1,000 mls @ 100 mls/hr 02/27/17 11:25 Normal Saline - IV ASDIR [facility] Insulin Aspart 1 vial 02/24/17 07:00 02/27/17 11:38 Novolog Vial Sliding Scale - SQ Not Given ACHS [facility] Protocol Lisinopril 10 mg 02/24/17 10:00 02/27/17 09:15 Prinivil PO Not Given DAILY [facility] Metoclopramide HCl 10 mg 02/24/17 08:55 02/25/17 16:00 Reglan Injection - IVPUSH 10 mg Q6H PRN Administration NAUSEA AND/OR VOMITING Morphine Sulfate 3 mg 02/24/17 12:36 02/26/17 23:03 Morphine Sulfate IVPUSH 3 mg Q3H PRN Administration PAIN LEVEL 6-10 Pantoprazole Sodium 20 mg 02/24/17 10:00 02/27/17 09:16 Protonix - PO Not Given DAILY [facility] Rosuvastatin Calcium 10 mg 02/24/17 22:00 02/26/17 21:44 Crestor - PO 10 mg HS [facility] Administration Sitagliptin Phosphate 100 mg 02/26/17 13:30 02/27/17 06:45 Januvia - PO Not Given DAILY@0700 [facility] Lab Results WBC 8.2 K/mm3 (4.0-10.0) 02/26/17 06:42 RBC 3.08 M/mm3 (3.60-5.2) L 02/26/17 06:42 Hgb 9.3 GM/dL (10.7-15.3) L 02/26/17 06:42 Hct 27.5 % (32.4-45.2) L 02/26/17 06:42 MCV 89.3 fl (80-96) 02/26/17 06:42 MCHC 33.7 g/dl (32.0-36.0) 02/26/17 06:42 RDW 14.3 % (11.6-15.6) 02/26/17 06:42 Plt Count 167 K/MM3 (134-434) 02/26/17 06:42 Sodium 129 mmol/L (136-145) L 02/27/17 07:30 Potassium 4.4 mmol/L (3.5-5.1) 02/27/17 07:30 Chloride 98 mmol/L (98-107) 02/27/17 07:30 Carbon Dioxide 22 mmol/L (21-32) 02/27/17 07:30 Anion Gap 9 (8-16) 02/27/17 07:30 BUN 10 mg/dL (7-18) D 02/27/17 07:30 Creatinine 0.5 mg/dL (0.55-1.02) L D 02/27/17 07:30 Random Glucose 200 mg/dL (74-106) H 02/27/17 07:30 Calcium 7.6 mg/dL (8.5-10.1) L 02/27/17 07:30 Blood Type A POSITIVE 02/23/17 20:35 Antibody Screen Negative 02/23/17 20:35 INR 1.05 (0.82-1.09) 02/25/17 06:15 Microbiology 02/23/17 23:18 Urine - Urine Clean Catch Urine Culture - Final NO GROWTH OBTAINED ASSESSMENT AND PLAN: 77yo F with PMH HTN, DM and CVA on plavix presented with R hip pain after mechanical fall. -Right hip femoral fracture -Atypical chest pain, intermittent, reproducible with palpation -Sinus tachcardia from pain/hypovolumia -Hypertensive urgency, suspect from pain -Hyponatremia, suspect acute on chronic from hypovolumia/pain/ pseudohyponatremia from hyperglycemia -Iron deficiency anemia -NIDDM -CVA with RLE tingling/numbness Plan: Plan for surgery today, will follow up. Pain control with morphine, add bowel regimen. Check urine lytes, gentle hydration with NS, monitor Na levels, Start PO iron, bowel regimen as above. Januvia, hold additional oral hypoglycemics while NPO around surgery. Plavix on hold for surgery. Cardiology input appreciated. DVTPPx dispo pending surgery and clinical course.
[2017-02-27] MEDS ORDERED: METOPROLOL TARTRATE 5 MG/5 ML VIAL ONE (15:07)
[2017-02-27] MEDS ORDERED: LABETALOL HCL 5 MG/1 ML (100MG/20 ML VIAL) ONE (15:07)
--- NOTE | 2017-02-27 15:17 | OP ---
Operative Note - Note: Operative Date: 02/27/17 ([facility]) Pre-Operative Diagnosis: right periprosthetic femoral shaft fx Operation: right femur removal of hardware, long IM gamma nail, bone grafting Post-Operative Diagnosis: Same as Pre-op Surgeon: Lefty Fang [place] Management Professor: Salvatore Castellanos Anesthesiologist/[employer]NC[employer] DIRECTOR: Tessa Martinez Anesthesia: General, Local Estimated Blood Loss (mls): 500 Operative Report Dictated: Yes
[2017-02-27] MEDS ORDERED: ONDANSETRON 4 MG/2 ML VIAL IVPUSH PRN (15:23)
--- NOTE | 2017-02-27 15:59 | OP ---
DATE OF OPERATION: 02/27/2017 PREOPERATIVE DIAGNOSIS: Right femur fracture below previous intramedullary hip nailing done 7 years prior. POSTOPERATIVE DIAGNOSIS: Right femur fracture below previous intramedullary hip nailing done 7 years prior. PROCEDURE: Removal of intramedullary hip nail and open rodding of right femoral shaft fracture. SURGICAL ATTENDING: Lefty Fang MD INTERNET ARCHITECT: KASSIE Zaldivar ANESTHESIA: Spinal. CLOSURE: [place] 11 x 360 mm, 125-degree gamma nailing, with appropriate interlocks proximally and distally, and 0 Vicryl fascia, 2-0 subcutaneous, trish for skin. ESTIMATED BLOOD LOSS: Approximately 500 mL. COMPLICATIONS: None. CONDITION: To recovery room in stable condition. DESCRIPTION OF PROCEDURE: Patient was taken to the operating room on February 27, 2017. Spinal anesthesia was administered by the anesthesiologist. IV Kefzol had been administered prophylactically prior to the case. Patient was fastened to the fracture table with all prominences well padded. The right lateral thigh was prepped and draped in the usual sterile fashion by use of a shower curtain. First, the olimpia was removed. This was done by using the previous incisions both proximally and over the locking screw and distally. Hemostasis was achieved with Bovie cautery. Then, sharp dissection was carried to the fascia, down to the level of the hardware. Using the extractor sets, the olimpia, locking screw, and lag screw were all removed uneventfully. Next, a long guidewire was placed down the intramedullary canal of the femur into the distal fragment. Upon placing it into the distal fragment, the distal fragment was found to be markedly comminuted with a segmental split fracture in the middle to two distinct pieces. The distal aspect of the femur was intact, too. The guidewire was placed down past the segmental region into the intramedullary canal of the distal fragment. An 11.5 reamer was used to just sound the canal. The guidewire was measured for length. An 11 mm diameter x 360 mm length gamma nail was then malletted down into place achieving a good position proximally and distally. The middle portion had marked comminution that was both medially and laterally butterfly fragments that needed to be manipulated. In order to do this, the area around the fracture was opened, and the fascia was opened. Hemostasis was achieved with Bovie cautery. It was found that these cortical pieces were almost completely devoid of soft tissue. They were laid medially and laterally around the olimpia. The guidewire was peeled up from the lateral aspect of the femur through the femoral neck into the femoral head. Proper placement was confirmed in the AP and lateral planes using the image intensifier. It measured then an appropriately sized lag screw. It was locked superiorly in the static fashion. The distal fragment was rotated around the olimpia until the overall alignment of the fracture was obtained. The femur was shortened a little to get some more cortical overlap and contact. The distal 2 screws were placed lateral to medial, 2 small stab incisions using the free-hand technique, achieved excellent fixation. Then, 60 mL of cancellous bone and 10 mL of [place] putty were mixed together and then placed around the segmental area to aid in fracture healing. The fascia was closed in 0 Vicryl running locking suture, 0 and 2-0 for subcutaneous, and trish for skin. Sterile pressure dressing was applied. Patient was awakened from anesthesia and transferred to recovery in stable condition. Estimated blood loss approximately 500 mL. One unit of packed cells was given at the end of the case. Overall alignment of the limb was found to be excellent with limb length also to be excellent. Patient was transferred to the recovery room in stable condition. Milton [id number]
[2017-02-27] MEDS: LACTATED RINGERS SOLUTION 1,000 ML IV SCH ×2 (17:30→18:00)
[2017-02-27] MEDS: SODIUM CHLORIDE 1,000 ML IV SCH (18:01)
[2017-02-27] MEDS: morphine SULFATE 4 MG/ML VIAL IVPUSH PRN ×2 (18:16→21:36)
[2017-02-27] MEDS ORDERED: METOCLOPRAMIDE HCL INJECTION 10 MG/2 ML VIAL IVPUSH PRN (18:50)
[2017-02-27] MEDS ORDERED: LACTATED RINGERS SOLUTION 1,000 ML IV SCH (18:50)
[2017-02-27] MEDS ORDERED: PT OWN MED DRAWER 7, Y5N ONE (18:54)
[2017-02-27] MEDS: CEFAZOLIN 1 GM PUSH 1 GM/10 ML DISP.SYRIN IVPUSH SCH (19:06)
[2017-02-27] MEDS: ROSUVASTATIN CA 10 MG TABLET (FP) PO SCH (21:23)
[2017-02-27] MEDS ORDERED: INSULIN (NOVOLOG) ASPART 100 UNITS/ML 10ML VIAL ONE (21:24)
[2017-02-27] MEDS: ACETAMINOPHEN 325 MG TABLET (FP) PO PRN (21:26)
[2017-02-27] MEDS ORDERED: CEFAZOLIN 1 GM/D5W 50 ML IVPB SCH (23:00)
[2017-02-28] MEDS: CEFAZOLIN 1 GM PUSH 1 GM/10 ML DISP.SYRIN IVPUSH SCH ×3 (01:41→17:37)
[2017-02-28] MEDS: morphine SULFATE 4 MG/ML VIAL IVPUSH PRN ×2 (01:41→06:40)
[2017-02-28] MEDS: sitaGLIPtin PHOSPHATE 100 MG TABLET (FP) PO SCH (06:26)
[2017-02-28] MEDS: INSULIN SLIDING SCALE (NOVOLOG) 1 VIAL SQ SCH ×4 (06:26→21:00)
[2017-02-28 08:10] LABS: MCH 30.1 pg (25.7-33.7); MCHC 33.8 g/dl (32.0-36.0); MEAN PLT VOLUME 7.7 fl (7.5-11.1); PLATELET COUNT 168 K/MM3 (134-434); RDW 14.5 % (11.6-15.6); WHITE BLOOD COUNT 7.3 K/mm3 (4.0-10.0)
[2017-02-28 08:43] LABS: ANION GAP 12 (8-16); CO2 19 mmol/L (21-32); GLUCOSE,RANDOM 175 mg/dL (74-106)
[2017-02-28 08:45] LABS: CREATININE 0.6 mg/dL (0.55-1.02)
[2017-02-28] MEDS ORDERED: FERROUS SO4 325 MG TABLET (FP) PO SCH (09:00)
[2017-02-28] MEDS: SODIUM CHLORIDE 1,000 ML IV SCH ×2 (09:03)
[2017-02-28] MEDS ORDERED: PT OWN MED DRAWER 7, Y5N ONE ×2 (09:05→17:35)
[2017-02-28] MEDS: FERROUS SO4 325 MG TABLET (FP) PO SCH (09:07)
--- NOTE | 2017-02-28 09:40 | PN ---
Progress Note (short form) - Note Progress Note: Ortho Pt seen and examined s/p right femur removal of hardware and ORIF pod #1 Selected Entries 02/28/17 06:08 Temperature 98.0 F Pulse Rate 99 H Respiratory 18 Rate Blood Pressure 117/63 Laboratory Tests 02/28/17 07:00 WBC 7.3 Hgb 7.7 L D Hct 22.8 L D Plt Count 168 dressing c/d/i, calf soft, nt nvi a/p transfuse 2 units f/u cbc strict NWB pain control dvt ppx d/c planning
[2017-02-28] MEDS ORDERED: DOCUSATE SODIUM 100 MG CAPSULE (FP) PO SCH ×2 (10:00)
[2017-02-28] MEDS ORDERED: POLYETHYLENE GLYCOL 3350 119 GM BTL PO SCH (10:00)
[2017-02-28] MEDS ORDERED: ENOXAPARIN NA (PORCINE) 30 MG/0.3 ML DISP.SYRIN SQ SCH (10:00)
--- NOTE | 2017-02-28 10:04 | PN ---
Progress Note (short form) - Note Progress Note: Anesthesia Post op Pt seen and examined S:alert and awake O: Vital Signs Temperature 100 F H 02/28/17 09:44 Pulse Rate 99 H 02/28/17 09:44 Respiratory Rate 22 02/28/17 09:44 Blood Pressure 106/46 02/28/17 09:44 O2 Sat by Pulse Oximetry (%) 98 02/27/17 18:20 CBC, BMP 02/28/17 07:00 02/28/17 07:00 A/P:s/p orif femur post op Mild fever/anemia Continue observation Continue current care Asa Alatorre MD
[2017-02-28] MEDS: CARVEDILOL 12.5 MG TABLET (FP) PO SCH ×2 (10:10→21:01)
[2017-02-28] MEDS: LISINOPRIL 10 MG TABLET (FP) PO SCH (10:10)
[2017-02-28] MEDS: GABAPENTIN 100 MG CAPSULE (FP) PO SCH ×2 (10:13→21:01)
[2017-02-28] MEDS: PANTOPRAZOLE 20 MG TABLET (FP) PO SCH (10:13)
[2017-02-28] MEDS: ENOXAPARIN NA (PORCINE) 40 MG/0.4 ML DISP.SYRIN SQ SCH (10:14)
[2017-02-28] MEDS: POLYETHYLENE GLYCOL 3350 119 GM BTL PO SCH (10:14)
[2017-02-28] MEDS: ACETAMINOPHEN 325 MG TABLET (FP) PO PRN ×2 (11:56→20:56)
--- NOTE | 2017-02-28 13:05 | PN ---
Teaching Attending Note Name of Resident: Donna Rojas ATTENDING PHYSICIAN STATEMENT Time of evaluation: 9:50 AM I saw and evaluated the patient. I reviewed the resident's note and discussed the case with the resident. I agree with the resident's findings and plan as documented. SUBJECTIVE: Patient seen and examined. Right hip pain but not too concerning. No other complaints. Denies any pain or dizziness. OBJECTIVE: Vital Signs Period Temp Pulse Resp BP Sys/Wilde Pulse Ox Last 24 Hr 98.0 F-100 F 84-102 10- 106-163/46-80 96-100 Intake & Output 02/25/17 02/26/17 02/27/17 02/28/17 23:59 23:59 23:59 23:59 Intake Total 534 6398 329 4858 Output Total 1550 1900 200 Balance 534 -390 -1040 1300 General: positive pallor, in no acute distress CVS:S1S2 regular Chest: CTAB, no rales or wheezing abdomen: soft, NT, ND, positive bowel sounds extremities - right thigh dressing, no edema, positive pulses Home Medication List Medication Instructions Recorded Confirmed Type Carvedilol [Coreg] 6.25 mg PO BID 10/21/15 02/24/17 History Glipizide 10 mg PO BID 10/21/15 02/24/17 History Lisinopril [Prinivil] 10 mg PO DAILY 10/21/15 02/24/17 History Omeprazole 20 mg PO DAILY 10/21/15 02/24/17 History Rosuvastatin Calcium [Crestor] 10 mg PO HS 10/21/15 02/24/17 History Sitagliptin Phosphate [Januvia] 100 mg PO DAILY 10/21/15 02/24/17 History Clopidogrel Bisulfate [Plavix -] 75 mg PO DAILY 02/03/17 02/24/17 History Gabapentin [Neurontin -] 100 mg PO BID 02/03/17 02/24/17 History Active Medications Generic Name Dose Route Start Last Admin Trade Name Freq PRN Reason Stop Dose Admin Acetaminophen 650 mg 02/27/17 18:50 02/28/17 11:56 Tylenol - PO 650 mg Q6H PRN Administration FEVER OR PAIN Carvedilol 12.5 mg 02/27/17 22:00 02/28/17 10:10 Coreg - PO Not Given BID MANISH Docusate Sodium 100 mg 02/28/17 10:00 02/28/17 10:13 Colace - PO 100 mg DAILY MANISH Administration Enoxaparin Sodium 40 mg 02/28/17 10:00 02/28/17 10:14 Lovenox - SQ 40 mg DAILY MANISH Administration Fentanyl 50 mcg 02/27/17 15:23 02/27/17 16:00 Sublimaze Injection - IVPUSH 25 mcg [id number] PRN Administration PAIN Ferrous Sulfate 325 mg 02/28/17 09:00 02/28/17 09:07 Feosol - PO 325 mg DAILY@0900 MANISH Administration Gabapentin 100 mg 02/27/17 22:00 02/28/17 10:13 Neurontin - PO 100 mg BID MANISH Administration Cefazolin Sodium 1 gm in 10 mls @ 120 mls/hr 02/27/17 18:00 02/28/17 10:25 Ancef - IVPUSH 120 mls/hr Q8H-IV MANISH Administration Insulin Aspart 1 vial 02/27/17 22:00 02/28/17 11:42 Novolog Vial Sliding Scale - SQ 4 units ACHS MANISH Administration Protocol Lisinopril 10 mg 02/28/17 10:00 02/28/17 10:10 Prinivil PO Not Given DAILY MANISH Metoclopramide HCl 10 mg 02/27/17 18:50 Reglan Injection - IVPUSH Q6H PRN NAUSEA AND/OR VOMITING Morphine Sulfate 3 mg 02/27/17 18:50 02/28/17 06:40 Morphine Sulfate IVPUSH 3 mg Q3H PRN Administration PAIN LEVEL 6-10 Ondansetron HCl 4 mg 02/27/17 15:23 Zofran Injection IVPUSH Q6H PRN NAUSEA AND/OR VOMITING Pantoprazole Sodium 20 mg 02/28/17 10:00 02/28/17 10:13 Protonix - PO 20 mg DAILY MANISH Administration Polyethylene Glycol 17 gm 02/28/17 10:00 02/28/17 10:14 Miralax (For Daily Use) - PO 17 grams DAILY MANISH Administration Rosuvastatin Calcium 10 mg 02/27/17 22:00 02/27/17 21:23 Crestor - PO 10 mg HS MANISH Administration Sitagliptin Phosphate 100 mg 02/28/17 07:00 02/28/17 06:26 Januvia - PO 100 mg DAILY@0700 MANISH Administration ASSESSMENT AND PLAN: 77yo F with PMH HTN, DM and CVA on plavix presented with R hip pain after mechanical fall. -Right hip femoral fracture s/p ORIF -Acute blood loss anemia, from surgery (500 ml intra-operative blood loss) -Atypical chest pain, intermittent, reproducible with palpation -Sinus tachcardia from pain/hypovolumia, improved -Hypertensive urgency, suspect from pain -Hyponatremia, suspect acute on chronic from hypovolumia/pain/ pseudohyponatremia from hyperglycemia -Iron deficiency anemia -NIDDM -CVA with residual RLE tingling/numbness Plan: s/p ORIF 02/27, Plan for 2 units PRBC per surgery. Repeat H/h later. Pain control with morphine, bowel regimen. Hold plavix for now given acute blood loss. Urine lytes noted, suggest hypovolumia, Na improved with intra-operative hydration, monitor Na levels. Continue PO iron, bowel regimen as above. Januvia, hold additional oral hypoglycemics, resume glipizide in 24 hours if PO intake adequate and hyperglycemic. . Plavix on hold given above. Cardiology input appreciated. DVTPPx dispo PT/OT eval, anticipate [facility] vs Acute rehab in 24-48 hours pending PT eval if no further or concerning anemia post transfusion.
--- NOTE | 2017-02-28 14:15 | PN ---
Physical Exam: SUBJECTIVE: Patient seen and examined. Doing well post surgery. Asymptomatic. Mild low grade fever postop, no complaints. States pain is well controlled. OBJECTIVE: Vital Signs Period Temp Pulse Resp BP Sys/Wilde Pulse Ox Last 24 Hr 98.0 F-100 F 84-102 - 106-163/46-80 96-100 GEN: AAOx3, NAD, Lying comfortably in bed HEENT: PERRLA, EOMi, No cervical LAD CV: S1, S2, RRR LUNG: CTABL ABD: Soft, NT, ND MSK: Straight, not rotated, normal size, 2+ pulses, neurologically intact Laboratory Last Values WBC 7.3 K/mm3 (4.0-10.0) 02/28/17 07:00 RBC 2.57 M/mm3 (3.60-5.2) L 02/28/17 07:00 Hgb 7.7 GM/dL (10.7-15.3) L D 02/28/17 07:00 Hct 22.8 % (32.4-45.2) L D 02/28/17 07:00 MCV 89.0 fl (80-96) 02/28/17 07:00 MCH 30.1 pg (25.7-33.7) 02/28/17 07:00 MCHC 33.8 g/dl (32.0-36.0) 02/28/17 07:00 RDW 14.5 % (11.6-15.6) 02/28/17 07:00 Plt Count 168 K/MM3 (134-434) 02/28/17 07:00 MPV 7.7 fl (7.5-11.1) 02/28/17 07:00 Neutrophils % 76.3 % (42.8-82.8) 02/26/17 06:42 Lymphocytes % 14.0 % (8-40) 02/26/17 06:42 Monocytes % 9.3 % (3.8-10.2) 02/26/17 06:42 Eosinophils % 0.2 % (0-4.5) D 02/26/17 06:42 Basophils % 0.2 % (0-2.0) 02/26/17 06:42 PT with INR 11.90 SEC (9.98-11.88) H 02/25/17 06:15 INR 1.05 (0.82-1.09) 02/25/17 06:15 PTT (Actin FS) 35.0 SECONDS (26.9-34.4) H 02/25/17 06:15 Sodium 136 mmol/L (136-145) 02/28/17 07:00 Potassium 3.6 mmol/L (3.5-5.1) 02/28/17 07:00 Chloride 105 mmol/L (98-107) 02/28/17 07:00 Carbon Dioxide 19 mmol/L (21-32) L 02/28/17 07:00 Anion Gap 12 (8-16) 02/28/17 07:00 BUN 19 mg/dL (7-18) H D 02/28/17 07:00 Creatinine 0.6 mg/dL (0.55-1.02) 02/28/17 07:00 Creat Clearance w eGFR > 60 (>60) 02/25/17 06:15 POC Glucometer 235 UNITS (80-120) 02/28/17 11:38 Random Glucose 175 mg/dL (74-106) H 02/28/17 07:00 Calcium 7.0 mg/dL (8.5-10.1) L 02/28/17 07:00 Phosphorus 2.5 mg/dL (2.5-4.9) 02/25/17 06:15 Magnesium 2.0 mg/dL (1.8-2.4) D 02/25/17 06:15 Iron 21 ug/dL (27-139) L 02/26/17 06:42 TIBC 281 ug/dL (250-450) 02/26/17 06:42 Iron Saturation 7 % (15-55) L 02/26/17 06:42 Ferritin 47.691 ng/ml (6.9-282.5) 02/26/17 06:42 Total Bilirubin 0.8 mg/dL (0.2-1.0) D 02/25/17 06:15 AST 17 U/L (15-37) 02/25/17 06:15 ALT 19 U/L (12-78) 02/25/17 06:15 Alkaline Phosphatase 69 U/L (45-117) 02/25/17 06:15 Creatine Kinase 542 IU/L (26-192) H 02/25/17 12:30 Creatine Kinase Index 0.3 % (0.0-5.0) 02/25/17 12:30 CK-MB (CK-2) 2.12 ng/mL (0.5-3.6) 02/25/17 12:30 Troponin I < 0.02 ng/ml (0.00-0.05) 02/25/17 12:30 Total Protein 6.6 g/dl (6.4-8.2) 02/25/17 06:15 Albumin 3.1 g/dl (3.4-5.0) L 02/25/17 06:15 Urine Color Straw 02/23/17 23:18 Urine Appearance Clear 02/23/17 23:18 Urine pH 7.0 (5.0-8.0) D 02/23/17 23:18 Ur Specific Henning 1.007 (1.001-1.035) 02/23/17 23:18 Urine Protein 2+ (NEGATIVE) H 02/23/17 23:18 Urine Glucose (UA) 3+ (NEGATIVE) H 02/23/17 23:18 Urine Ketones Trace (NEGATIVE) H 02/23/17 23:18 Urine Blood 1+ (NEGATIVE) H 02/23/17 23:18 Urine Nitrite Negative (NEGATIVE) 02/23/17 23:18 Urine Bilirubin Negative (NEGATIVE) 02/23/17 23:18 Urine Urobilinogen Negative mg/dL (0.2-1.0) 02/23/17 23:18 Ur Leukocyte Esterase Negative (NEGATIVE) 02/23/17 23:18 Urine WBC (Auto) < 1 02/23/17 23:18 Urine RBC (Auto) 4 02/23/17 23:18 Ur Epithelial Cells Rare /hpf (FEW) 02/23/17 23:18 Urine Mucus Rare 02/23/17 23:18 Ur Random Sodium 25 MMOL/L 02/27/17 Unknown Ur Random Potassium 60.1 MMOL/L 02/27/17 Unknown Ur Random Chloride 18 MMOL/L 02/27/17 Unknown Urine Creatinine 44.5 mg/dL (20-320) 02/27/17 Unknown Blood Type A POSITIVE 02/27/17 13:18 Antibody Screen Negative 02/27/17 13:18 Crossmatch See Detail 02/27/17 13:18 Crossmatch IS Only See Detail 02/27/17 13:18 Active Medications Generic Name Dose Route Start Last Admin Trade Name Freq PRN Reason Stop Dose Admin Acetaminophen 650 mg 02/27/17 18:50 02/28/17 11:56 Tylenol - PO 650 mg Q6H PRN Administration FEVER OR PAIN Carvedilol 12.5 mg 02/27/17 22:00 02/28/17 10:10 Coreg - PO Not Given BID [facility] Docusate Sodium 100 mg 02/28/17 10:00 02/28/17 10:13 Colace - PO 100 mg DAILY MANISH Administration Enoxaparin Sodium 40 mg 02/28/17 10:00 02/28/17 10:14 Lovenox - SQ 40 mg DAILY MANISH Administration Fentanyl 50 mcg 02/27/17 15:23 02/27/17 16:00 Sublimaze Injection - IVPUSH 25 mcg [id number] PRN Administration PAIN Ferrous Sulfate 325 mg 02/28/17 09:00 02/28/17 09:07 Feosol - PO 325 mg DAILY@0900 MANISH Administration Gabapentin 100 mg 02/27/17 22:00 02/28/17 10:13 Neurontin - PO 100 mg BID MANISH Administration Cefazolin Sodium 1 gm in 10 mls @ 120 mls/hr 02/27/17 18:00 02/28/17 10:25 Ancef - IVPUSH 120 mls/hr Q8H-IV MANISH Administration Insulin Aspart 1 vial 02/27/17 22:00 02/28/17 11:42 Novolog Vial Sliding Scale - SQ 4 units ACHS MANISH Administration Protocol Lisinopril 10 mg 02/28/17 10:00 02/28/17 10:10 Prinivil PO Not Given DAILY [facility] Metoclopramide HCl 10 mg 02/27/17 18:50 Reglan Injection - IVPUSH Q6H PRN NAUSEA AND/OR VOMITING Morphine Sulfate 3 mg 02/27/17 18:50 02/28/17 06:40 Morphine Sulfate IVPUSH 3 mg Q3H PRN Administration PAIN LEVEL 6-10 Ondansetron HCl 4 mg 02/27/17 15:23 Zofran Injection IVPUSH Q6H PRN NAUSEA AND/OR VOMITING Pantoprazole Sodium 20 mg 02/28/17 10:00 02/28/17 10:13 Protonix - PO 20 mg DAILY MANISH Administration Polyethylene Glycol 17 gm 02/28/17 10:00 02/28/17 10:14 Miralax (For Daily Use) - PO 17 grams DAILY MANISH Administration Rosuvastatin Calcium 10 mg 02/27/17 22:00 02/27/17 21:23 Crestor - PO 10 mg HS MANISH Administration Sitagliptin Phosphate 100 mg 02/28/17 07:00 02/28/17 06:26 Januvia - PO 100 mg DAILY@0700 MANISH Administration ASSESSMENT/PLAN: Pt is a 77yo F with PMHx of CVA (on plavix), R sided ORIF from prior R proximal femoral fracture, presented w/ R hip pain s/p mechanical fall, found to have new R mid periprosthetic femoral fracture # Acute R femoral Fracture - Sustained from mechanical fall, this fracture is near her prosthetic from prior ORIF in same leg - Had surgery yesterday, doing well but H/H dropped, currently receiving 2u PRBC, PT saw ad patient was unable to tolerate walking - As per surgery, pt needs to be d/c on Lovenox 30mg SQ daily for 2 weeks -- > then resume Plavix # Normocytic Anemia - Pt has VLAD, but H/H also dropped with acute blood loss from surgery, receiving 2u PRBC, CBC after, transfuse if <7 # Hyponatremia - FeNa 0.2%, was pre-renal, improved dramatically with IV fluids during surgery, will stop IVF for now so as not to overcorrect - Repeat BMP 9PM, adjust of needs fluids accordingly # HTN - Well controlled w/ home Lisinopril 10 daily + Coreg 6.25 BID, likely rising due to pain, will monitor # Hx of CVA - Hold Plavix until after Lovenox 30mg SQ # Hx of NIDDM - Hold PO home meds, on BGM + ISS ACHS, pt was not on Levemir HS # Hx of Peripheral Neuropathy - Continue home Gabapentin 100 BID # Hx of HLD - Continue Crestor 10 HS # Hx of GERD - Continue home PPI # FEN - IVNS @ 100cc/hr, Diabetic diet after surgery # PPX - HSQ TID, PT ordered # Dispo - Surgery yest, NIESHA sent to [place], PT saw, likely d/c tmrw d/w Dr Luis F Rojas MD - PGY1 Internal Medicine Visit type - Emergency Visit Emergency Visit: No - New Patient This patient is new to me today: No - Critical Care Critical Care patient: No - Discharge Referral Referred to [facility] Med P.C.: No
[2017-02-28] MEDS ORDERED: INSULIN (NOVOLOG) ASPART 100 UNITS/ML 10ML VIAL ONE ×2 (17:47→20:59)
--- NOTE | 2017-02-28 18:09 | PN ---
Progress Note, Physician History of Present Illness: POD#1 Right hip ORIF, post-op pain adequately controlled, receiving pRBC, denies further atypical chest pain. - Current Medication List Current Medications: Active Medications Acetaminophen (Tylenol -) 650 mg PO Q6H PRN PRN Reason: FEVER OR PAIN Last Admin: 02/28/17 11:56 Dose: 650 mg Carvedilol (Coreg -) 12.5 mg PO BID [facility] Last Admin: 02/28/17 10:10 Dose: Not Given Docusate Sodium (Colace -) 100 mg PO DAILY [facility] Last Admin: 02/28/17 10:13 Dose: 100 mg Enoxaparin Sodium (Lovenox -) 40 mg SQ DAILY [facility] Last Admin: 02/28/17 10:14 Dose: 40 mg Fentanyl (Sublimaze Injection -) 50 mcg IVPUSH [id number] PRN PRN Reason: PAIN Last Admin: 02/27/17 16:00 Dose: 25 mcg Ferrous Sulfate (Feosol -) 325 mg PO DAILY@0900 [facility] Last Admin: 02/28/17 09:07 Dose: 325 mg Gabapentin (Neurontin -) 100 mg PO BID [facility] Last Admin: 02/28/17 10:13 Dose: 100 mg Cefazolin Sodium (Ancef -) 1 gm in 10 mls @ 120 mls/hr IVPUSH Q8H-IV [facility] Last Admin: 02/28/17 17:37 Dose: 120 mls/hr Insulin Aspart (Novolog Vial Sliding Scale -) 1 vial SQ ACHS [facility] PRN Reason: Protocol Last Admin: 02/28/17 17:58 Dose: 6 units Lisinopril (Prinivil) 10 mg PO DAILY [facility] Last Admin: 02/28/17 10:10 Dose: Not Given Metoclopramide HCl (Reglan Injection -) 10 mg IVPUSH Q6H PRN PRN Reason: NAUSEA AND/OR VOMITING Morphine Sulfate (Morphine Sulfate) 3 mg IVPUSH Q3H PRN PRN Reason: PAIN LEVEL 6-10 Last Admin: 02/28/17 06:40 Dose: 3 mg Ondansetron HCl (Zofran Injection) 4 mg IVPUSH Q6H PRN PRN Reason: NAUSEA AND/OR VOMITING Pantoprazole Sodium (Protonix -) 20 mg PO DAILY [facility] Last Admin: 02/28/17 10:13 Dose: 20 mg Polyethylene Glycol (Miralax (For Daily Use) -) 17 gm PO DAILY [facility] Last Admin: 02/28/17 10:14 Dose: 17 grams Rosuvastatin Calcium (Crestor -) 10 mg PO HS [facility] Last Admin: 02/27/17 21:23 Dose: 10 mg Sitagliptin Phosphate (Januvia -) 100 mg PO DAILY@0700 [facility] Last Admin: 02/28/17 06:26 Dose: 100 mg - Objective Vital Signs: Vital Signs Temperature 99.6 F 02/28/17 17:54 Pulse Rate 102 H 02/28/17 17:54 Respiratory Rate 22 02/28/17 17:54 Blood Pressure 112/53 02/28/17 17:54 O2 Sat by Pulse Oximetry (%) 96 02/28/17 11:49 Constitutional: Yes: No Distress, Calm Neck: Yes: Supple Cardiovascular: Yes: Regular Rate and Rhythm Respiratory: Yes: Regular, Diminished Gastrointestinal: Yes: Normal Bowel Sounds, Soft Edema: No Labs: CBC, BMP 02/28/17 07:00 02/28/17 07:00 INR, PTT INR 1.05 (0.82-1.09) 02/25/17 06:15 Problem List - Problems (1) History of right hip hemiarthroplasty Code(s): Z96.641 - PRESENCE OF RIGHT ARTIFICIAL HIP JOINT (2) Femur fracture, right Code(s): S72.91XA - UNSP FRACTURE OF RIGHT FEMUR, INIT FOR CLOS FX Qualifiers: Encounter type: subsequent encounter Femur location: shaft Fracture type : closed Fracture morphology: transverse Fracture alignment: displaced Fracture healing: with routine healing Qualified Code(s): S72.321D - Displaced transverse fracture of shaft of right femur, subsequent encounter for closed fracture with routine healing (3) H/O: CVA (cerebrovascular accident) Code(s): Z86.73 - PRSNL HX OF TIA (TIA), AND CEREB INFRC W/O RESID DEFICITS (4) Diabetes Code(s): E11.9 - TYPE 2 DIABETES MELLITUS WITHOUT COMPLICATIONS Qualifiers: Diabetes mellitus type: type 2 Diabetes mellitus complication status: with circulatory complication Diabetes mellitus complication detail: with other circulatory complications Diabetes mellitus superintendent container terminal insulin use: without superintendent container terminal use Qualified Code(s): E11.59 - Type 2 diabetes mellitus with other circulatory complications (5) Hyperlipidemia Code(s): E78.5 - HYPERLIPIDEMIA, UNSPECIFIED Qualifiers: Hyperlipidemia type: pure hypercholesterolemia Qualified Code(s): E78.00 - Pure hypercholesterolemia, unspecified; E78.0 - Pure hypercholesterolemia (6) Hypertension Code(s): I10 - ESSENTIAL (PRIMARY) HYPERTENSION Qualifiers: Hypertension type: essential hypertension Qualified Code(s): I10 - Essential (primary) hypertension Assessment/Plan 1. Right displaced periprosthetic femoral shaft fx s/p right femur removal of hardware and ORIF pod #1 2. Atypical chest pain syndrome 3. Type 2 DM 4. HTN/HCVD 5. CVA 6. Hyperlipidemia 7. Post-op anemia P:1. Transfuse to maintain Hgb>8.0 2. Plavix held pending post-op hemostasis 3. Continue carvedilol 12.5 bid, lisinopril 10 qd, Crestor 10 qhs 4. DVT and GI prophylaxis, analgesia as needed, naomie-op abx
[2017-02-28] MEDS: ROSUVASTATIN CA 10 MG TABLET (FP) PO SCH (21:00)
[2017-02-28] MEDS ORDERED: diphenhydrAMINE HCL 25 MG CAPSULE (FP) PO ONE (21:25)
[2017-02-28 21:47] LABS: MCH 31.4 pg (25.7-33.7); MCHC 35.8 g/dl (32.0-36.0); MEAN CELL VOLUME 87.7 fl (80-96); MEAN PLT VOLUME 7.7 fl (7.5-11.1); PLATELET COUNT 174 K/MM3 (134-434); RDW 14.5 % (11.6-15.6); WHITE BLOOD COUNT 10.5 K/mm3 (4.0-10.0)
[2017-02-28 22:10] LABS: ANION GAP 10 (8-16); CO2 20 mmol/L (21-32); CREATININE 0.7 mg/dL (0.55-1.02); GLUCOSE,RANDOM 219 mg/dL (74-106)
[2017-02-28 22:15] LABS: CALCIUM 6.9 mg/dL (8.5-10.1)
[2017-02-28] MEDS ORDERED: CALCIUM GLUCONATE 10% - 1,000 MG/10 ML VIAL IVPB ONE (22:25)
[2017-03-01] MEDS: CEFAZOLIN 1 GM PUSH 1 GM/10 ML DISP.SYRIN IVPUSH SCH ×3 (02:54→18:18)
[2017-03-01] MEDS: morphine SULFATE 4 MG/ML VIAL IVPUSH PRN (06:08)
[2017-03-01] MEDS: INSULIN SLIDING SCALE (NOVOLOG) 1 VIAL SQ SCH ×4 (06:08→21:03)
[2017-03-01] MEDS: sitaGLIPtin PHOSPHATE 100 MG TABLET (FP) PO SCH (06:08)
[2017-03-01 08:07] LABS: ANION GAP 9 (8-16); CALCIUM 7.2 mg/dL (8.5-10.1); CO2 21 mmol/L (21-32); CREATININE 0.6 mg/dL (0.55-1.02); GLUCOSE,RANDOM 183 mg/dL (74-106)
[2017-03-01 08:20] LABS: MCH 30.7 pg (25.7-33.7); MCHC 35.5 g/dl (32.0-36.0); MEAN CELL VOLUME 86.4 fl (80-96); MEAN PLT VOLUME 8.7 fl (7.5-11.1); PLATELET COUNT 136 K/MM3 (134-434); RDW 14.6 % (11.6-15.6); WHITE BLOOD COUNT 9.2 K/mm3 (4.0-10.0)
[2017-03-01] MEDS: FERROUS SO4 325 MG TABLET (FP) PO SCH (08:20)
--- NOTE | 2017-03-01 09:03 | PN ---
Physical Exam: SUBJECTIVE: Patient seen and examined. Looks comfortable. Had mild transfusion reaction yesterday with pruritic rash, resolved completely with benadryl, no complaints today. Understands we are working for [facility]. OBJECTIVE: Vital Signs Period Temp Pulse Resp BP Sys/Wilde Pulse Ox Last 24 Hr 98 F-100 F 94-111 18-22 106-143/46-65 96 GEN: AAOx3, NAD, Lying comfortably in bed, not in distress HEENT: PERRLA, EOMi, No cervical LAD CV: S1, S2, RRR LUNG: CTABL ABD: Soft, NT, ND MSK: Straight, not rotated, normal size, 2+ pulses, neurologically intact Laboratory Last Values WBC 9.2 K/mm3 (4.0-10.0) 03/01/17 06:50 RBC 3.40 M/mm3 (3.60-5.2) L 03/01/17 06:50 Hgb 10.4 GM/dL (10.7-15.3) L D 03/01/17 06:50 Hct 29.4 % (32.4-45.2) L 03/01/17 06:50 MCV 86.4 fl (80-96) 03/01/17 06:50 MCH 30.7 pg (25.7-33.7) 03/01/17 06:50 MCHC 35.5 g/dl (32.0-36.0) 03/01/17 06:50 RDW 14.6 % (11.6-15.6) 03/01/17 06:50 Plt Count 136 K/MM3 (134-434) D 03/01/17 06:50 MPV 8.7 fl (7.5-11.1) D 03/01/17 06:50 Neutrophils % 76.3 % (42.8-82.8) 02/26/17 06:42 Lymphocytes % 14.0 % (8-40) 02/26/17 06:42 Monocytes % 9.3 % (3.8-10.2) 02/26/17 06:42 Eosinophils % 0.2 % (0-4.5) D 02/26/17 06:42 Basophils % 0.2 % (0-2.0) 02/26/17 06:42 PT with INR 11.90 SEC (9.98-11.88) H 02/25/17 06:15 INR 1.05 (0.82-1.09) 02/25/17 06:15 PTT (Actin FS) 35.0 SECONDS (26.9-34.4) H 02/25/17 06:15 Sodium 134 mmol/L (136-145) L 03/01/17 06:50 Potassium 3.6 mmol/L (3.5-5.1) 03/01/17 06:50 Chloride 104 mmol/L (98-107) 03/01/17 06:50 Carbon Dioxide 21 mmol/L (21-32) 03/01/17 06:50 Anion Gap 9 (8-16) 03/01/17 06:50 BUN 15 mg/dL (7-18) 03/01/17 06:50 Creatinine 0.6 mg/dL (0.55-1.02) 03/01/17 06:50 Creat Clearance w eGFR > 60 (>60) 02/25/17 06:15 POC Glucometer 226 UNITS (80-120) 03/01/17 05:56 Random Glucose 183 mg/dL (74-106) H 03/01/17 06:50 Calcium 7.2 mg/dL (8.5-10.1) L 03/01/17 06:50 Phosphorus 2.5 mg/dL (2.5-4.9) 02/25/17 06:15 Magnesium 2.0 mg/dL (1.8-2.4) D 02/25/17 06:15 Iron 21 ug/dL (27-139) L 02/26/17 06:42 TIBC 281 ug/dL (250-450) 02/26/17 06:42 Iron Saturation 7 % (15-55) L 02/26/17 06:42 Ferritin 47.691 ng/ml (6.9-282.5) 02/26/17 06:42 Total Bilirubin 0.8 mg/dL (0.2-1.0) D 02/25/17 06:15 AST 17 U/L (15-37) 02/25/17 06:15 ALT 19 U/L (12-78) 02/25/17 06:15 Alkaline Phosphatase 69 U/L (45-117) 02/25/17 06:15 Creatine Kinase 542 IU/L (26-192) H 02/25/17 12:30 Creatine Kinase Index 0.3 % (0.0-5.0) 02/25/17 12:30 CK-MB (CK-2) 2.12 ng/mL (0.5-3.6) 02/25/17 12:30 Troponin I < 0.02 ng/ml (0.00-0.05) 02/25/17 12:30 Total Protein 6.6 g/dl (6.4-8.2) 02/25/17 06:15 Albumin 3.1 g/dl (3.4-5.0) L 02/25/17 06:15 Urine Color Straw 02/23/17 23:18 Urine Appearance Clear 02/23/17 23:18 Urine pH 7.0 (5.0-8.0) D 02/23/17 23:18 Ur Specific [place] 1.007 (1.001-1.035) 02/23/17 23:18 Urine Protein 2+ (NEGATIVE) H 02/23/17 23:18 Urine Glucose (UA) 3+ (NEGATIVE) H 02/23/17 23:18 Urine Ketones Trace (NEGATIVE) H 02/23/17 23:18 Urine Blood 1+ (NEGATIVE) H 02/23/17 23:18 Urine Nitrite Negative (NEGATIVE) 02/23/17 23:18 Urine Bilirubin Negative (NEGATIVE) 02/23/17 23:18 Urine Urobilinogen Negative mg/dL (0.2-1.0) 02/23/17 23:18 Ur Leukocyte Esterase Negative (NEGATIVE) 02/23/17 23:18 Urine WBC (Auto) < 1 02/23/17 23:18 Urine RBC (Auto) 4 02/23/17 23:18 Ur Epithelial Cells Rare /hpf (FEW) 02/23/17 23:18 Urine Mucus Rare 02/23/17 23:18 Ur Random Sodium 25 MMOL/L 02/27/17 Unknown Ur Random Potassium 60.1 MMOL/L 02/27/17 Unknown Ur Random Chloride 18 MMOL/L 02/27/17 Unknown Urine Creatinine 44.5 mg/dL (20-320) 02/27/17 Unknown Blood Type A POSITIVE 02/27/17 13:18 Antibody Screen Negative 02/27/17 13:18 Crossmatch See Detail 02/27/17 13:18 Crossmatch IS Only See Detail 02/27/17 13:18 Active Medications Generic Name Dose Route Start Last Admin Trade Name Freq PRN Reason Stop Dose Admin Acetaminophen 650 mg 02/27/17 18:50 02/28/17 20:56 Tylenol - PO 650 mg Q6H PRN Administration FEVER OR PAIN Carvedilol 12.5 mg 02/27/17 22:00 02/28/17 21:01 Coreg - PO 12.5 mg BID MANISH Administration Docusate Sodium 100 mg 02/28/17 10:00 02/28/17 10:13 Colace - PO 100 mg DAILY MANISH Administration Enoxaparin Sodium 40 mg 02/28/17 10:00 02/28/17 10:14 Lovenox - SQ 40 mg DAILY MANISH Administration Fentanyl 50 mcg 02/27/17 15:23 02/27/17 16:00 Sublimaze Injection - IVPUSH 25 mcg [id number] PRN Administration PAIN Ferrous Sulfate 325 mg 02/28/17 09:00 03/01/17 08:20 Feosol - PO 325 mg DAILY@0900 MANISH Administration Gabapentin 100 mg 02/27/17 22:00 02/28/17 21:01 Neurontin - PO 100 mg BID MANISH Administration Cefazolin Sodium 1 gm in 10 mls @ 120 mls/hr 02/27/17 18:00 03/01/17 02:54 Ancef - IVPUSH 120 mls/hr Q8H-IV MANISH Administration Insulin Aspart 1 vial 02/27/17 22:00 03/01/17 06:08 Novolog Vial Sliding Scale - SQ 4 units ACHS MANISH Administration Protocol Lisinopril 10 mg 02/28/17 10:00 02/28/17 10:10 Prinivil PO Not Given DAILY MANISH Metoclopramide HCl 10 mg 02/27/17 18:50 Reglan Injection - IVPUSH Q6H PRN NAUSEA AND/OR VOMITING Morphine Sulfate 3 mg 02/27/17 18:50 03/01/17 06:08 Morphine Sulfate IVPUSH 3 mg Q3H PRN Administration PAIN LEVEL 6-10 Ondansetron HCl 4 mg 02/27/17 15:23 Zofran Injection IVPUSH Q6H PRN NAUSEA AND/OR VOMITING Pantoprazole Sodium 20 mg 02/28/17 10:00 02/28/17 10:13 Protonix - PO 20 mg DAILY MANISH Administration Polyethylene Glycol 17 gm 02/28/17 10:00 02/28/17 10:14 Miralax (For Daily Use) - PO 17 grams DAILY MANISH Administration Rosuvastatin Calcium 10 mg 02/27/17 22:00 02/28/17 21:00 Crestor - PO 10 mg HS MANISH Administration Sitagliptin Phosphate 100 mg 02/28/17 07:00 03/01/17 06:08 Januvia - PO 100 mg DAILY@0700 MANISH Administration ASSESSMENT/PLAN: Pt is a 77yo F with PMHx of CVA (on plavix), R sided ORIF from prior R proximal femoral fracture, presented w/ R hip pain s/p mechanical fall, found to have new R mid periprosthetic femoral fracture # Acute R femoral Fracture - POD#2 from surgery, sustained from mechanical fall, this fracture is near her prosthetic from prior ORIF in same leg - Spoke to about d/c, will work on transfer to SNF either today or tmrw - As per Dr. Fang, though patient is a high risk for developing clot, NO pharmacologic anticoag due to severity of surgery + intraop blood loss. Will place SCDs, surgeon will see the patient at [facility] and will prescribe anticoag. # Urinary Retention - Since bernardo removal this AM, patient has not voided. Bladder scan +300. Pt has hx of peripheral neuropathy, DM, and had strong opioids post procedure. Will need to void prior to transfer to SNF tmrw. Will encourage voiding, PO hydration. # Normocytic Anemia - Pt has VLAD, H/H dropped, received 2uPRBC yest, mild transfusion reaction, s /p benedryl, better today # Hyponatremia - FeNa 0.2%, was pre-renal, improved dramatically with IV fluids during surgery, now slightly hypo, will start low rate fluids # HTN - Well controlled w/ home Lisinopril 10 daily + Coreg 6.25 BID, likely rising due to pain, will monitor # Hx of CVA - Hold Plavix until after Lovenox 30mg SQ # Hx of NIDDM - Continue Januvia, Glipizide half dose, BGM + ISS ACHS # Hx of Peripheral Neuropathy - Continue home Gabapentin 100 BID # Hx of HLD - Continue Crestor 10 HS # Hx of GERD - Continue home PPI # FEN - no IVF, encourage hydration, Diabetic diet after surgery # PPX - HSQ TID, PT ordered # Dispo - Spoke to CM, Surgeon, Family, Nurses about dc plan. Plan is for tmrw to SNF. d/w Dr Luis F Rojas MD - PGY1 Internal Medicine Visit type - Emergency Visit Emergency Visit: No - New Patient This patient is new to me today: No - Critical Care Critical Care patient: No - Discharge Referral Referred to [facility] Med P.C.: No
--- NOTE | 2017-03-01 09:13 | PN ---
Progress Note, Physician Chief Complaint: Events noted Post Op History of Present Illness: Patient was seen and examined. Awake and alert. Chart was reviewed Denies chest pain, SOB or palpitations - Current Medication List Current Medications: Active Medications Acetaminophen (Tylenol -) 650 mg PO Q6H PRN PRN Reason: FEVER OR PAIN Last Admin: 02/28/17 20:56 Dose: 650 mg Carvedilol (Coreg -) 12.5 mg PO BID [facility] Last Admin: 02/28/17 21:01 Dose: 12.5 mg Docusate Sodium (Colace -) 100 mg PO DAILY [facility] Last Admin: 02/28/17 10:13 Dose: 100 mg Enoxaparin Sodium (Lovenox -) 40 mg SQ DAILY [facility] Last Admin: 02/28/17 10:14 Dose: 40 mg Fentanyl (Sublimaze Injection -) 50 mcg IVPUSH [id number] PRN PRN Reason: PAIN Last Admin: 02/27/17 16:00 Dose: 25 mcg Ferrous Sulfate (Feosol -) 325 mg PO DAILY@0900 [facility] Last Admin: 03/01/17 08:20 Dose: 325 mg Gabapentin (Neurontin -) 100 mg PO BID [facility] Last Admin: 02/28/17 21:01 Dose: 100 mg Cefazolin Sodium (Ancef -) 1 gm in 10 mls @ 120 mls/hr IVPUSH Q8H-IV [facility] Last Admin: 03/01/17 02:54 Dose: 120 mls/hr Sodium Chloride (Normal Saline -) 1,000 mls @ 75 mls/hr IV ASDIR [facility] Insulin Aspart (Novolog Vial Sliding Scale -) 1 vial SQ ACHS [facility] PRN Reason: Protocol Last Admin: 03/01/17 06:08 Dose: 4 units Lisinopril (Prinivil) 10 mg PO DAILY [facility] Last Admin: 02/28/17 10:10 Dose: Not Given Metoclopramide HCl (Reglan Injection -) 10 mg IVPUSH Q6H PRN PRN Reason: NAUSEA AND/OR VOMITING Morphine Sulfate (Morphine Sulfate) 3 mg IVPUSH Q3H PRN PRN Reason: PAIN LEVEL 6-10 Last Admin: 03/01/17 06:08 Dose: 3 mg Ondansetron HCl (Zofran Injection) 4 mg IVPUSH Q6H PRN PRN Reason: NAUSEA AND/OR VOMITING Pantoprazole Sodium (Protonix -) 20 mg PO DAILY [facility] Last Admin: 02/28/17 10:13 Dose: 20 mg Polyethylene Glycol (Miralax (For Daily Use) -) 17 gm PO DAILY [facility] Last Admin: 02/28/17 10:14 Dose: 17 grams Rosuvastatin Calcium (Crestor -) 10 mg PO HS [facility] Last Admin: 02/28/17 21:00 Dose: 10 mg Sitagliptin Phosphate (Januvia -) 100 mg PO DAILY@0700 [facility] Last Admin: 03/01/17 06:08 Dose: 100 mg - Objective Vital Signs: Vital Signs Temperature 98 F 03/01/17 08:00 Pulse Rate 94 H 03/01/17 08:00 Respiratory Rate 18 03/01/17 08:00 Blood Pressure 138/65 03/01/17 08:00 O2 Sat by Pulse Oximetry (%) 96 02/28/17 11:49 Neck: Yes: Supple Cardiovascular: Yes: Regular Rate and Rhythm, S1, S2 Respiratory: Yes: CTA Bilaterally Gastrointestinal: Yes: Normal Bowel Sounds, Soft. No: Tenderness Edema: No Labs: CBC, BMP 03/01/17 06:50 03/01/17 06:50 Problem List - Problems (1) Femur fracture, right Code(s): S72.91XA - UNSP FRACTURE OF RIGHT FEMUR, INIT FOR CLOS FX Qualifiers: Encounter type: subsequent encounter Femur location: shaft Fracture type : closed Fracture morphology: transverse Fracture alignment: displaced Fracture healing: with routine healing Qualified Code(s): S72.321D - Displaced transverse fracture of shaft of right femur, subsequent encounter for closed fracture with routine healing (2) H/O: CVA (cerebrovascular accident) Code(s): Z86.73 - PRSNL HX OF TIA (TIA), AND CEREB INFRC W/O RESID DEFICITS (3) History of right hip hemiarthroplasty Code(s): Z96.641 - PRESENCE OF RIGHT ARTIFICIAL HIP JOINT (4) Pre-operative cardiovascular examination Code(s): Z01.810 - ENCOUNTER FOR PREPROCEDURAL CARDIOVASCULAR EXAMINATION (5) Diabetes Code(s): E11.9 - TYPE 2 DIABETES MELLITUS WITHOUT COMPLICATIONS Qualifiers: Diabetes mellitus type: type 2 Diabetes mellitus complication status: with circulatory complication Diabetes mellitus complication detail: with other circulatory complications Diabetes mellitus sample tester insulin use: without alf use Qualified Code(s): E11.59 - Type 2 diabetes mellitus with other circulatory complications (6) Hyperlipidemia Code(s): E78.5 - HYPERLIPIDEMIA, UNSPECIFIED Qualifiers: Hyperlipidemia type: pure hypercholesterolemia Qualified Code(s): E78.00 - Pure hypercholesterolemia, unspecified; E78.0 - Pure hypercholesterolemia (7) Hypertension Code(s): I10 - ESSENTIAL (PRIMARY) HYPERTENSION Qualifiers: Hypertension type: essential hypertension Qualified Code(s): I10 - Essential (primary) hypertension Assessment/Plan 1. Post operative cardiovascular evaluation 2. Right displaced naomie-prosthetic femoral shaft fracture awaiting ORIF 3. Atypical chest pain syndrome 4. Type 2 DM 5. HTN/HCVD 6. CVA 7. Hyperlipidemia PLAN: 1. Continue present therapy 2. Plavix when cleared 3. Continue Carvedilol 6.25 bid, Lisinopril 10 qd and Crestor 10 qhs 4. DVT and GI prophylaxis 5. Analgesia as needed Further plans are to follow Basil Emmanuel MD
[2017-03-01] MEDS ORDERED: SODIUM CHLORIDE 1,000 ML IV SCH (09:15)
[2017-03-01] MEDS ORDERED: morphine SULFATE 4 MG/ML VIAL IVPUSH PRN (09:54)
[2017-03-01] MEDS ORDERED: PT OWN MED DRAWER 7, Y5N ONE ×2 (10:06→18:12)
[2017-03-01] MEDS: PANTOPRAZOLE 20 MG TABLET (FP) PO SCH (10:11)
[2017-03-01] MEDS: GABAPENTIN 100 MG CAPSULE (FP) PO SCH ×2 (10:11→21:03)
[2017-03-01] MEDS: DOCUSATE SODIUM 100 MG CAPSULE (FP) PO SCH ×2 (10:11→21:03)
[2017-03-01] MEDS: CARVEDILOL 12.5 MG TABLET (FP) PO SCH ×2 (10:11→21:03)
[2017-03-01] MEDS: LISINOPRIL 10 MG TABLET (FP) PO SCH (10:11)
[2017-03-01] MEDS: POLYETHYLENE GLYCOL 3350 119 GM BTL PO SCH (10:11)
[2017-03-01] MEDS: ENOXAPARIN NA (PORCINE) 40 MG/0.4 ML DISP.SYRIN SQ SCH (10:12)
--- NOTE | 2017-03-01 10:57 | PN ---
Teaching Attending Note Name of Resident: Donna Rojas ATTENDING PHYSICIAN STATEMENT Time of evaluation: 8:30 AM I saw and evaluated the patient. I reviewed the resident's note and discussed the case with the resident. I agree with the resident's findings and plan as documented. SUBJECTIVE: Patient seen and examined, right thigh pain well controlled, tolerating PO well , no other complaints. OBJECTIVE: Vital Signs Period Temp Pulse Resp BP Sys/Wilde Pulse Ox Last 24 Hr 98 F-99.6 F 94-111 18-22 107-143/53-65 96 Intake & Output 02/26/17 02/27/17 02/28/17 03/01/17 23:59 23:59 23:59 23:59 Intake Total 8211 823 1656 Output Total 1550 1900 1000 300 Balance -390 -1040 1150 -300 General: lying in bed in no acute distress CVS: S1s2 regular Chest: no rales or wheezing abdomen: soft, obese, NT, positive bowel sounds extremities - no edema, positive pulses Home Medication List Medication Instructions Recorded Confirmed Type Carvedilol [Coreg] 6.25 mg PO BID 10/21/15 02/24/17 History Glipizide 10 mg PO BID 10/21/15 02/24/17 History Lisinopril [Prinivil] 10 mg PO DAILY 10/21/15 02/24/17 History Omeprazole 20 mg PO DAILY 10/21/15 02/24/17 History Rosuvastatin Calcium [Crestor] 10 mg PO HS 10/21/15 02/24/17 History Sitagliptin Phosphate [Januvia] 100 mg PO DAILY 10/21/15 02/24/17 History Clopidogrel Bisulfate [Plavix -] 75 mg PO DAILY 02/03/17 02/24/17 History Gabapentin [Neurontin -] 100 mg PO BID 02/03/17 02/24/17 History Active Medications Generic Name Dose Route Start Last Admin Trade Name Freq PRN Reason Stop Dose Admin Acetaminophen 650 mg 02/27/17 18:50 02/28/17 20:56 Tylenol - PO 650 mg Q6H PRN Administration FEVER OR PAIN Carvedilol 12.5 mg 02/27/17 22:00 03/01/17 10:11 Coreg - PO 12.5 mg BID MANISH Administration Docusate Sodium 100 mg 03/01/17 10:00 03/01/17 10:11 Colace - PO 100 mg BID MANISH Administration Enoxaparin Sodium 40 mg 02/28/17 10:00 03/01/17 10:12 Lovenox - SQ 40 mg DAILY MANISH Administration Fentanyl 50 mcg 02/27/17 15:23 02/27/17 16:00 Sublimaze Injection - IVPUSH 25 mcg [id number] PRN Administration PAIN Ferrous Sulfate 325 mg 02/28/17 09:00 03/01/17 08:20 Feosol - PO 325 mg DAILY@0900 MANISH Administration Gabapentin 100 mg 02/27/17 22:00 03/01/17 10:11 Neurontin - PO 100 mg BID MANISH Administration Cefazolin Sodium 1 gm in 10 mls @ 120 mls/hr 02/27/17 18:00 03/01/17 10:12 Ancef - IVPUSH 120 mls/hr Q8H-IV MANISH Administration Insulin Aspart 1 vial 02/27/17 22:00 03/01/17 06:08 Novolog Vial Sliding Scale - SQ 4 units ACHS MANISH Administration Protocol Lisinopril 10 mg 02/28/17 10:00 03/01/17 10:11 Prinivil PO 10 mg DAILY MANISH Administration Metoclopramide HCl 10 mg 02/27/17 18:50 Reglan Injection - IVPUSH Q6H PRN NAUSEA AND/OR VOMITING Ondansetron HCl 4 mg 02/27/17 15:23 Zofran Injection IVPUSH Q6H PRN NAUSEA AND/OR VOMITING Pantoprazole Sodium 20 mg 02/28/17 10:00 03/01/17 10:11 Protonix - PO 20 mg DAILY MANISH Administration Polyethylene Glycol 17 gm 02/28/17 10:00 03/01/17 10:11 Miralax (For Daily Use) - PO 17 grams DAILY MANISH Administration Rosuvastatin Calcium 10 mg 02/27/17 22:00 02/28/17 21:00 Crestor - PO 10 mg HS MANISH Administration Sitagliptin Phosphate 100 mg 02/28/17 07:00 03/01/17 06:08 Januvia - PO 100 mg DAILY@0700 MANISH Administration Laboratory Results - last 24 hr 02/27/17 02/28/17 02/28/17 13:18 11:38 16:27 WBC RBC Hgb Hct MCV MCH MCHC RDW Plt Count MPV Sodium Potassium Chloride Carbon Dioxide Anion Gap BUN Creatinine POC Glucometer 235 256 Random Glucose Calcium Blood Type A POSITIVE Antibody Screen Negative Crossmatch See Detail Crossmatch IS Only See Detail 02/28/17 02/28/17 02/28/17 20:53 21:40 21:40 WBC 10.5 H D RBC 3.71 D Hgb 11.7 D Hct 32.5 D MCV 87.7 MCH 31.4 MCHC 35.8 RDW 14.5 Plt Count 174 MPV 7.7 Sodium 135 L Potassium 3.8 Chloride 105 Carbon Dioxide 20 L Anion Gap 10 BUN 17 Creatinine 0.7 POC Glucometer 215 Random Glucose 219 H D Calcium 6.9 L* Blood Type Antibody Screen Crossmatch Crossmatch IS Only 03/01/17 03/01/17 03/01/17 05:56 06:50 06:50 WBC 9.2 RBC 3.40 L Hgb 10.4 L D Hct 29.4 L MCV 86.4 MCH 30.7 MCHC 35.5 RDW 14.6 Plt Count 136 D MPV 8.7 D Sodium 134 L Potassium 3.6 Chloride 104 Carbon Dioxide 21 Anion Gap 9 BUN 15 Creatinine 0.6 POC Glucometer 226 Random Glucose 183 H Calcium 7.2 L Blood Type Antibody Screen Crossmatch Crossmatch IS Only ASSESSMENT AND PLAN: 77yo F with PMH HTN, DM and CVA on plavix presented with R hip pain after mechanical fall. -Right hip femoral fracture s/p ORIF and hardware removal -Acute blood loss anemia, from surgery (500 ml intra-operative blood loss) -Atypical chest pain, intermittent, reproducible with palpation -Sinus tachycardia from pain/hypovolumia, improved -Hypertensive urgency, suspect from pain -Hyponatremia, suspect acute on chronic from hypovolumia/pain/ pseudohyponatremia from hyperglycemia -Iron deficiency anemia -NIDDM -CVA with residual RLE tingling/numbness Plan: s/p ORIF 02/27, s/p 2 units PRBC with appropriate response, repeat h/h this afternoon to ensure stable. PO iron supplementation. d/c morphine. Tylenol prn, bowel regimen. Discuss with orthopedic for DVPTPX on d/c and when ok to resume plavix. Na improved with hydration, stable now. Januvia, resume glipizide, ISS, diabetic diet. Plavix on hold given above. Cardiology input appreciated. DVTPPx NANI bed available today. D/c later today if h/h stable, pending orthopedic recs on DVTPPx and follow up.
[2017-03-01] MEDS ORDERED: INSULIN (NOVOLOG) ASPART 100 UNITS/ML 10ML VIAL ONE (11:14)
[2017-03-01 11:18] LABS: MCHC 34.3 g/dl (32.0-36.0); MEAN CELL VOLUME 87.5 fl (80-96); MEAN PLT VOLUME 7.7 fl (7.5-11.1); PLATELET COUNT 164 K/MM3 (134-434); RDW 14.6 % (11.6-15.6); WHITE BLOOD COUNT 10.9 K/mm3 (4.0-10.0)
[2017-03-01] MEDS: glipiZIDE 5 MG TABLET (FP) PO SCH ×2 (11:39→16:38)
[2017-03-01] MEDS: ACETAMINOPHEN 325 MG TABLET (FP) PO PRN ×2 (14:18→20:07)
[2017-03-01] MEDS ORDERED: SODIUM CHLORIDE 500 ML IV STA (18:39)
[2017-03-01] MEDS: ROSUVASTATIN CA 10 MG TABLET (FP) PO SCH (21:04)
[2017-03-02] MEDS ORDERED: PT OWN MED DRAWER 7, Y5N ONE ×2 (02:28→09:14)
[2017-03-02] MEDS: CEFAZOLIN 1 GM PUSH 1 GM/10 ML DISP.SYRIN IVPUSH SCH ×2 (02:33→09:26)
[2017-03-02] MEDS: ACETAMINOPHEN 325 MG TABLET (FP) PO PRN (03:59)
[2017-03-02] MEDS: INSULIN SLIDING SCALE (NOVOLOG) 1 VIAL SQ SCH ×2 (06:26→11:32)
[2017-03-02] MEDS: glipiZIDE 5 MG TABLET (FP) PO SCH (06:34)
[2017-03-02] MEDS: sitaGLIPtin PHOSPHATE 100 MG TABLET (FP) PO SCH (06:34)
[2017-03-02 07:52] LABS: MCH 30.1 pg (25.7-33.7); MCHC 34.8 g/dl (32.0-36.0); MEAN CELL VOLUME 86.6 fl (80-96); MEAN PLT VOLUME 7.9 fl (7.5-11.1); PLATELET COUNT 175 K/MM3 (134-434); RDW 14.9 % (11.6-15.6); WHITE BLOOD COUNT 9.5 K/mm3 (4.0-10.0)
[2017-03-02 08:26] LABS: ANION GAP 10 (8-16); CO2 21 mmol/L (21-32); CREATININE 0.4 mg/dL (0.55-1.02); GLUCOSE,RANDOM 116 mg/dL (74-106)
[2017-03-02] MEDS: FERROUS SO4 325 MG TABLET (FP) PO SCH (09:26)
[2017-03-02] MEDS: POLYETHYLENE GLYCOL 3350 119 GM BTL PO SCH (09:26)
[2017-03-02] MEDS: GABAPENTIN 100 MG CAPSULE (FP) PO SCH (09:26)
[2017-03-02] MEDS: PANTOPRAZOLE 20 MG TABLET (FP) PO SCH (09:26)
[2017-03-02] MEDS: LISINOPRIL 10 MG TABLET (FP) PO SCH (09:26)
[2017-03-02] MEDS: DOCUSATE SODIUM 100 MG CAPSULE (FP) PO SCH (09:27)
[2017-03-02] MEDS: CARVEDILOL 12.5 MG TABLET (FP) PO SCH (09:27)
--- NOTE | 2017-03-02 09:31 | PN ---
Progress Note, Physician Chief Complaint: Events noted Post Op hemodynamically stable History of Present Illness: Patient was seen and examined. Awake and alert. Chart was reviewed Denies chest pain, SOB or palpitations - Current Medication List Current Medications: Active Medications Acetaminophen (Tylenol -) 650 mg PO Q6H PRN PRN Reason: FEVER OR PAIN Last Admin: 03/02/17 03:59 Dose: 650 mg Carvedilol (Coreg -) 12.5 mg PO BID [facility] Last Admin: 03/02/17 09:27 Dose: 12.5 mg Docusate Sodium (Colace -) 100 mg PO BID [facility] Last Admin: 03/02/17 09:27 Dose: Not Given Fentanyl (Sublimaze Injection -) 50 mcg IVPUSH [id number] PRN PRN Reason: PAIN Last Admin: 02/27/17 16:00 Dose: 25 mcg Ferrous Sulfate (Feosol -) 325 mg PO DAILY@0900 [facility] Last Admin: 03/02/17 09:26 Dose: 325 mg Gabapentin (Neurontin -) 100 mg PO BID [facility] Last Admin: 03/02/17 09:26 Dose: 100 mg Glipizide (Glucotrol -) 5 mg PO BID@0700,1630 [facility] Last Admin: 03/02/17 06:34 Dose: 5 mg Cefazolin Sodium (Ancef -) 1 gm in 10 mls @ 120 mls/hr IVPUSH Q8H-IV [facility] Last Admin: 03/02/17 09:26 Dose: 120 mls/hr Insulin Aspart (Novolog Vial Sliding Scale -) 1 vial SQ ACHS [facility] PRN Reason: Protocol Last Admin: 03/02/17 06:26 Dose: Not Given Lisinopril (Prinivil) 10 mg PO DAILY [facility] Last Admin: 03/02/17 09:26 Dose: 10 mg Metoclopramide HCl (Reglan Injection -) 10 mg IVPUSH Q6H PRN PRN Reason: NAUSEA AND/OR VOMITING Ondansetron HCl (Zofran Injection) 4 mg IVPUSH Q6H PRN PRN Reason: NAUSEA AND/OR VOMITING Pantoprazole Sodium (Protonix -) 20 mg PO DAILY [facility] Last Admin: 03/02/17 09:26 Dose: 20 mg Polyethylene Glycol (Miralax (For Daily Use) -) 17 gm PO DAILY [facility] Last Admin: 03/02/17 09:26 Dose: Not Given Rosuvastatin Calcium (Crestor -) 10 mg PO HS [facility] Last Admin: 03/01/17 21:04 Dose: 10 mg Sitagliptin Phosphate (Januvia -) 100 mg PO DAILY@0700 [facility] Last Admin: 03/02/17 06:34 Dose: 100 mg - Objective Vital Signs: Vital Signs Temperature 98.4 F 03/02/17 08:00 Pulse Rate 93 H 03/02/17 08:00 Respiratory Rate 18 03/02/17 08:00 Blood Pressure 149/70 03/02/17 08:00 O2 Sat by Pulse Oximetry (%) 96 02/28/17 11:49 Neck: Yes: Supple Cardiovascular: Yes: Regular Rate and Rhythm, S1, S2 Respiratory: Yes: CTA Bilaterally Gastrointestinal: Yes: Normal Bowel Sounds, Soft. No: Tenderness Edema: No Labs: CBC, BMP 03/02/17 07:00 03/02/17 07:00 Problem List - Problems (1) Femur fracture, right Code(s): S72.91XA - UNSP FRACTURE OF RIGHT FEMUR, INIT FOR CLOS FX Qualifiers: Encounter type: subsequent encounter Femur location: shaft Fracture type : closed Fracture morphology: transverse Fracture alignment: displaced Fracture healing: with routine healing Qualified Code(s): S72.321D - Displaced transverse fracture of shaft of right femur, subsequent encounter for closed fracture with routine healing (2) H/O: CVA (cerebrovascular accident) Code(s): Z86.73 - PRSNL HX OF TIA (TIA), AND CEREB INFRC W/O RESID DEFICITS (3) History of right hip hemiarthroplasty Code(s): Z96.641 - PRESENCE OF RIGHT ARTIFICIAL HIP JOINT (4) Pre-operative cardiovascular examination Code(s): Z01.810 - ENCOUNTER FOR PREPROCEDURAL CARDIOVASCULAR EXAMINATION (5) Diabetes Code(s): E11.9 - TYPE 2 DIABETES MELLITUS WITHOUT COMPLICATIONS Qualifiers: Diabetes mellitus type: type 2 Diabetes mellitus complication status: with circulatory complication Diabetes mellitus complication detail: with other circulatory complications Diabetes mellitus senior care insulin use: without senior care use Qualified Code(s): E11.59 - Type 2 diabetes mellitus with other circulatory complications (6) Hyperlipidemia Code(s): E78.5 - HYPERLIPIDEMIA, UNSPECIFIED Qualifiers: Hyperlipidemia type: pure hypercholesterolemia Qualified Code(s): E78.00 - Pure hypercholesterolemia, unspecified; E78.0 - Pure hypercholesterolemia (7) Hypertension Code(s): I10 - ESSENTIAL (PRIMARY) HYPERTENSION Qualifiers: Hypertension type: essential hypertension Qualified Code(s): I10 - Essential (primary) hypertension Assessment/Plan 1. Post operative cardiovascular evaluation 2. Right displaced naomie-prosthetic femoral shaft fracture awaiting ORIF 3. Atypical chest pain syndrome 4. Type 2 DM 5. HTN/HCVD 6. CVA 7. Hyperlipidemia PLAN: 1. Continue present therapy 2. Plavix when cleared 3. Continue Carvedilol 6.25 bid, Lisinopril 10 qd and Crestor 10 qhs 4. DVT and GI prophylaxis 5. Analgesia as needed Further plans are to follow Basil Emmanuel MD
--- NOTE | 2017-03-02 09:33 | PATH ---
Surgical Pathology Report Patient Name: NIDIA HOOVER [facility]. Rec. #: [id number] /Age/Gender: 1940 (Age: 77) / F Account: [id number] Location: [address] [place] [address]/[facility] Taken: 02/27/2017 Received: 02/28/2017 Reported: 03/02/2017 Physicians: Lefty Fang M.D. Specimen(s) Received HARDWARE RIGHT FEMUR Clinical History Right femur fracture Final Diagnosis ORTHOPEDIC HARDWARE, RIGHT FEMUR, REMOVAL: METALLIC MIRNA AND SCREW CONSISTENT WITH ORTHOPEDIC HARDWARE (GROSS ONLY). Electronically Signed Mingo Keane M.D. Gross Description Received fresh labeled "hardware right femur," is a 17.5 cm in length lopez metallic mirna. Also received within the same container is a 9 cm in length lopez metallic screw. No soft tissue is present. No sections are submitted, gross only. 02/28/201702/28/2017
[2017-03-02 09:35] LABS: CALCIUM 6.9 mg/dL (8.5-10.1)
[2017-03-02] MEDS ORDERED: CALCIUM GLUCONATE 10% - 1,000 MG/10 ML VIAL IVPB ONE (10:30)
[2017-03-02] MEDS ORDERED: INSULIN (NOVOLOG) ASPART 100 UNITS/ML 10ML VIAL ONE (11:27)
--- NOTE | 2017-03-02 11:32 | PN ---
Progress Note (short form) - Note Progress Note: AVSS COMFORTABLE BANDAGES DRY AND INTACT CALF SOFT AND NT NVI HCT=26 AFTER TRANSFUSION FOR POST OP ANEMIA PLAN: HOLD ANTICOAGULATION EXCEPT SCDs. TRANSFER TO SNF
--- NOTE | 2017-03-02 12:19 | PN ---
Teaching Attending Note Name of Resident: Donna Rojas ATTENDING PHYSICIAN STATEMENT Time of evaluation: 10:30 AM I saw and evaluated the patient. I reviewed the resident's note and discussed the case with the resident. I agree with the resident's findings and plan as documented. SUBJECTIVE: [place] seen and examined, leg pain well controlled. Voiding and had a BM. no new complaints, overall feels better. OBJECTIVE: Vital Signs Period Temp Pulse Resp BP Sys/Wilde Pulse Ox Last 24 Hr 98.3 F-100.8 F 89-100 18-20 109-149/55-70 Intake & Output 02/27/17 02/28/17 03/01/17 03/02/17 23:59 23:59 23:59 23:59 Intake Total 860 2150 Output Total 1900 1000 480 Balance -1040 1150 -480 General: lying in bed in no acute distress Abdomen: soft, no suprapubic or CVA tenderness, ND, positive bowel sounds extremities: no edema, positive pulses Home Medication List Medication Instructions Recorded Confirmed Type Carvedilol [Coreg] 6.25 mg PO BID 10/21/15 02/24/17 History Glipizide 10 mg PO BID 10/21/15 02/24/17 History Lisinopril [Prinivil] 10 mg PO DAILY 10/21/15 02/24/17 History Omeprazole 20 mg PO DAILY 10/21/15 02/24/17 History Rosuvastatin Calcium [Crestor] 10 mg PO HS 10/21/15 02/24/17 History Sitagliptin Phosphate [Januvia] 100 mg PO DAILY 10/21/15 02/24/17 History Gabapentin [Neurontin -] 100 mg PO BID 02/03/17 02/24/17 History Active Medications Generic Name Dose Route Start Last Admin Trade Name Freq PRN Reason Stop Dose Admin Acetaminophen 650 mg 02/27/17 18:50 03/02/17 03:59 Tylenol - PO 650 mg Q6H PRN Administration FEVER OR PAIN Carvedilol 12.5 mg 02/27/17 22:00 03/02/17 09:27 Coreg - PO 12.5 mg BID MANISH Administration Docusate Sodium 100 mg 03/01/17 10:00 03/02/17 09:27 Colace - PO Not Given BID MANISH Fentanyl 50 mcg 02/27/17 15:23 02/27/17 16:00 Sublimaze Injection - IVPUSH 25 mcg [id number] PRN Administration PAIN Ferrous Sulfate 325 mg 02/28/17 09:00 03/02/17 09:26 Feosol - PO 325 mg DAILY@0900 MANISH Administration Gabapentin 100 mg 02/27/17 22:00 03/02/17 09:26 Neurontin - PO 100 mg BID MANISH Administration Glipizide 5 mg 03/01/17 11:45 03/02/17 06:34 Glucotrol - PO 5 mg BID@0700,1630 MANISH Administration Cefazolin Sodium 1 gm in 10 mls @ 120 mls/hr 02/27/17 18:00 03/02/17 09:26 Ancef - IVPUSH 120 mls/hr Q8H-IV MANISH Administration Insulin Aspart 1 vial 02/27/17 22:00 03/02/17 11:32 Novolog Vial Sliding Scale - SQ 4 units ACHS MANISH Administration Protocol Lisinopril 10 mg 02/28/17 10:00 03/02/17 09:26 Prinivil PO 10 mg DAILY MANISH Administration Metoclopramide HCl 10 mg 02/27/17 18:50 Reglan Injection - IVPUSH Q6H PRN NAUSEA AND/OR VOMITING Ondansetron HCl 4 mg 02/27/17 15:23 Zofran Injection IVPUSH Q6H PRN NAUSEA AND/OR VOMITING Pantoprazole Sodium 20 mg 02/28/17 10:00 03/02/17 09:26 Protonix - PO 20 mg DAILY MANISH Administration Polyethylene Glycol 17 gm 02/28/17 10:00 03/02/17 09:26 Miralax (For Daily Use) - PO Not Given DAILY [facility] Rosuvastatin Calcium 10 mg 02/27/17 22:00 03/01/17 21:04 Crestor - PO 10 mg HS MANISH Administration Sitagliptin Phosphate 100 mg 02/28/17 07:00 03/02/17 06:34 Januvia - PO 100 mg DAILY@0700 MANISH Administration Laboratory Results - last 24 hr 03/01/17 03/01/17 03/02/17 16:32 21:01 05:47 WBC RBC Hgb Hct MCV MCH MCHC RDW Plt Count MPV Sodium Potassium Chloride Carbon Dioxide Anion Gap BUN Creatinine POC Glucometer 218 125 139 Random Glucose Calcium 03/02/17 03/02/17 03/02/17 07:00 07:00 11:29 WBC 9.5 RBC 3.06 L Hgb 9.2 L D Hct 26.5 L MCV 86.6 MCH 30.1 MCHC 34.8 RDW 14.9 Plt Count 175 MPV 7.9 Sodium 134 L Potassium 3.4 L Chloride 103 Carbon Dioxide 21 Anion Gap 10 BUN 11 D Creatinine 0.4 L D POC Glucometer 216 Random Glucose 116 H D Calcium 6.9 L* ASSESSMENT AND PLAN: Improved, H/h stable, voiding freely, a bowel movement today. Low grade fever x 1 overnight, currently with no focal s/s concerning for infection. Encourage incentive spirometry and monitor at rehab. IF recurrent will need additonal w/u including u.a. Currently asymptomatic, will d/c to [facility] with close follow up. Replete Ca. Plavix on hold till seen by Dr. Fang at [facility], advised only SCDs for now d/c to [facility] rehab today. Plan discussed with patient.
--- NOTE | 2017-03-02 13:15 | DS ---
Physical Exam: SUBJECTIVE: Patient seen and examined. Doing well. Pain hsa decreased. Patient spontaneously voided and is having BMs. OBJECTIVE: Vital Signs Period Temp Pulse Resp BP Sys/Wilde Pulse Ox Last 24 Hr 98.3 F-100.8 F 89-100 18-20 109-149/55-70 PHYSICAL EXAM GEN: AAOx3, NAD, Lying comfortably in bed, not in distress HEENT: PERRLA, EOMi, No cervical LAD CV: S1, S2, RRR LUNG: CTABL ABD: Soft, NT, ND MSK: Straight, not rotated, normal size, 2+ pulses, neurologically intact LABS Laboratory Last Values WBC 9.5 K/mm3 (4.0-10.0) 03/02/17 07:00 RBC 3.06 M/mm3 (3.60-5.2) L 03/02/17 07:00 Hgb 9.2 GM/dL (10.7-15.3) L D 03/02/17 07:00 Hct 26.5 % (32.4-45.2) L 03/02/17 07:00 MCV 86.6 fl (80-96) 03/02/17 07:00 MCH 30.1 pg (25.7-33.7) 03/02/17 07:00 MCHC 34.8 g/dl (32.0-36.0) 03/02/17 07:00 RDW 14.9 % (11.6-15.6) 03/02/17 07:00 Plt Count 175 K/MM3 (134-434) 03/02/17 07:00 MPV 7.9 fl (7.5-11.1) 03/02/17 07:00 Neutrophils % 76.3 % (42.8-82.8) 02/26/17 06:42 Lymphocytes % 14.0 % (8-40) 02/26/17 06:42 Monocytes % 9.3 % (3.8-10.2) 02/26/17 06:42 Eosinophils % 0.2 % (0-4.5) D 02/26/17 06:42 Basophils % 0.2 % (0-2.0) 02/26/17 06:42 PT with INR 11.90 SEC (9.98-11.88) H 02/25/17 06:15 INR 1.05 (0.82-1.09) 02/25/17 06:15 PTT (Actin FS) 35.0 SECONDS (26.9-34.4) H 02/25/17 06:15 Sodium 134 mmol/L (136-145) L 03/02/17 07:00 Potassium 3.4 mmol/L (3.5-5.1) L 03/02/17 07:00 Chloride 103 mmol/L (98-107) 03/02/17 07:00 Carbon Dioxide 21 mmol/L (21-32) 03/02/17 07:00 Anion Gap 10 (8-16) 03/02/17 07:00 BUN 11 mg/dL (7-18) D 03/02/17 07:00 Creatinine 0.4 mg/dL (0.55-1.02) L D 03/02/17 07:00 Creat Clearance w eGFR > 60 (>60) 02/25/17 06:15 POC Glucometer 216 UNITS (80-120) 03/02/17 11:29 Random Glucose 116 mg/dL (74-106) H D 03/02/17 07:00 Calcium 6.9 mg/dL (8.5-10.1) L* 03/02/17 07:00 Phosphorus 2.5 mg/dL (2.5-4.9) 02/25/17 06:15 Magnesium 2.0 mg/dL (1.8-2.4) D 02/25/17 06:15 Iron 21 ug/dL (27-139) L 02/26/17 06:42 TIBC 281 ug/dL (250-450) 02/26/17 06:42 Iron Saturation 7 % (15-55) L 02/26/17 06:42 Ferritin 47.691 ng/ml (6.9-282.5) 02/26/17 06:42 Total Bilirubin 0.8 mg/dL (0.2-1.0) D 02/25/17 06:15 AST 17 U/L (15-37) 02/25/17 06:15 ALT 19 U/L (12-78) 02/25/17 06:15 Alkaline Phosphatase 69 U/L (45-117) 02/25/17 06:15 Creatine Kinase 542 IU/L (26-192) H 02/25/17 12:30 Creatine Kinase Index 0.3 % (0.0-5.0) 02/25/17 12:30 CK-MB (CK-2) 2.12 ng/mL (0.5-3.6) 02/25/17 12:30 Troponin I < 0.02 ng/ml (0.00-0.05) 02/25/17 12:30 Total Protein 6.6 g/dl (6.4-8.2) 02/25/17 06:15 Albumin 3.1 g/dl (3.4-5.0) L 02/25/17 06:15 Urine Color Straw 02/23/17 23:18 Urine Appearance Clear 02/23/17 23:18 Urine pH 7.0 (5.0-8.0) D 02/23/17 23:18 Ur Specific [place] 1.007 (1.001-1.035) 02/23/17 23:18 Urine Protein 2+ (NEGATIVE) H 02/23/17 23:18 Urine Glucose (UA) 3+ (NEGATIVE) H 02/23/17 23:18 Urine Ketones Trace (NEGATIVE) H 02/23/17 23:18 Urine Blood 1+ (NEGATIVE) H 02/23/17 23:18 Urine Nitrite Negative (NEGATIVE) 02/23/17 23:18 Urine Bilirubin Negative (NEGATIVE) 02/23/17 23:18 Urine Urobilinogen Negative mg/dL (0.2-1.0) 02/23/17 23:18 Ur Leukocyte Esterase Negative (NEGATIVE) 02/23/17 23:18 Urine WBC (Auto) < 1 02/23/17 23:18 Urine RBC (Auto) 4 02/23/17 23:18 Ur Epithelial Cells Rare /hpf (FEW) 02/23/17 23:18 Urine Mucus Rare 02/23/17 23:18 Ur Random Sodium 25 MMOL/L 02/27/17 Unknown Ur Random Potassium 60.1 MMOL/L 02/27/17 Unknown Ur Random Chloride 18 MMOL/L 02/27/17 Unknown Urine Creatinine 44.5 mg/dL (20-320) 02/27/17 Unknown Blood Type A POSITIVE 02/27/17 13:18 Antibody Screen Negative 02/27/17 13:18 Crossmatch See Detail 02/27/17 13:18 Crossmatch IS Only See Detail 02/27/17 13:18 HOSPITAL COURSE: Date of Admission:02/24/17 Date of Discharge: 03/02/17 Briefly, Ms. Diaz is a 77 yo F with a significant PMHx of NIDDM, HTN, CVA on plavix, who presents with right hip pain at 10/10 after suffering a fall earlier this evening. She explains that she was walking in her home and there were many pairs of shoes on the floor, and she tripped on them and fell onto her right hip. Denies head trauma or LOC. She did not have any preceding dizziness, chest pain, or other symptoms. The patient had a R hip fracture s/p ORIF [address] Housotn. On admission, her R leg was shortened and externally rotated. X-rays confirmed a new acute R displaced femoral shaft fracture next to her prior prosthetic. Her plavix was held and she was scheduled for surgery. Cardiology was called in for clearance since the patient was complaining of chest pain. On 02/27 Dr. Fang performed a right femur removal or hardwar, long IM gamma nail, and bone grafting. EBL was 500cc. The patient had a drop in H/H, and received 2 units PRBC. She had a mild transfusion reaction that was relieved with benedryl. The patient had some physical therapy in the hospital but will be transferred to [facility] for further physical rehab. Of note, patient had hyponatremia that was likely hypovolemic pre-renal due to FeNa 0.2% and correction with aggressive IV hydration in the OR. The patient received 2 calcium gluconate infusions for hypocalcemia and will be discharged on calcium pills. She was also found to be iron deficient and will be sent on iron pills. The patient and the patient's family are aware of the hospital course and agree with the plan to transfer to [facility] Minutes to complete discharge: 45 Discharge Summary Reason For Visit: FRACTURE OF RIGHT FEMUR Current Active Problems Femur fracture, right (Acute) H/O: CVA (cerebrovascular accident) (Acute) History of right hip hemiarthroplasty (Acute) Pre-operative cardiovascular examination (Acute) Condition: Improved - Instructions Diet, Activity, Other Instructions: RECOMMENDATIONS: - You will be transferred to a subacute rehabilitation nursing facility for physical therapy - Please continue taking all of your medications as prescribed - Please continue weight bearing as tolerated - If you experience bleeding or fevers and chills, please let the doctor at the rehabilitation facility know. - If you experience severe chest pain, shortness of breath please return the Emergency room - Continue incentive spirometry at the [facility]. - SCDs in rehab when in bed MEDICATION CHANGES: - STOP taking your Plavix, and make SURE you wear pneumatic compression devices on your legs until Dr. Fang sees you again - START taking Ferrous sulfate 325mg tablet daily for iron deficiency anemia - START taking an insulin sliding scale - START taking calcium carbonate tablets two times daily - Maintain bowel regimen PRN FOLLOWUPS: - Dr. Lefty Fang (Orthopedic Surgeon) - he will see you at the rehabilitation facility - PLease have [facility] call Dr. Fang for follow up in 1 week for treatment recommendations and anti-coagulation/Plavix. - Primary Care Doctor - f/u in 2 weeks - Cardiology - f/u in 1-2 months - You need a CBC, Chem-7 in 2-3 days at the rehab Referrals: Basil Emmanuel MD [Staff Physician] - 1 Month Lefty Fang MD [Staff Physician] - 1 Week Disposition: SNF FACILITY - Home Medications Comprehensive Discharge Medication List: Ambulatory Orders Carvedilol [Coreg] 6.25 mg PO BID 10/21/15 Glipizide 10 mg PO BID 10/21/15 Lisinopril [Prinivil] 10 mg PO DAILY 10/21/15 Omeprazole 20 mg PO DAILY 10/21/15 Rosuvastatin Calcium [Crestor] 10 mg PO HS 10/21/15 Sitagliptin Phosphate [Januvia] 100 mg PO DAILY 10/21/15 Gabapentin [Neurontin -] 100 mg PO BID 02/03/17 Acetaminophen [Tylenol .Regular Strength -] 650 mg PO Q6H PRN tablet 03/02/17 Calcium Carbonate/Vitamin D3 [Calcium 600 + Vit D 400 Softgl] 1 each PO BID #30 capsule 03/02/17 Ferrous Sulfate [Feosol] 325 mg PO DAILY@0900 #0 ud 03/02/17 Insulin Sliding Scale [Novolog Vial Sliding Scale -] 1 vial SQ ACHS units 03/02 This patient is new to me today: No Emergency Visit: No Critical Care patient: No - Discharge Referral Referred to [facility] Med P.C.: No
[2017-03-02 14:55] VITALS: BP 151/83; PULSE 95; TEMP 98.5
== END 2017-03-02 16:31 | DRG 481 ==
LOC: JER 19:02 → JERBED 02-24 02:55 → J5S 02-24 05:59 → J6S 02-26 18:18
PROVIDERS: ADMIT Internal Medicine; ATTEND Hospitalist
PROC: 0SP904Z Removal of Internal Fixation Device from Right Hip Joint, Open Approach (ICD-10-PCS; 2017-02-27)
PROC: 30233N1 Transfusion of Nonautologous Red Blood Cells into Peripheral Vein, Percutaneous Approach (ICD-10-PCS; 2017-02-27)
PROC: 0QS804Z Reposition Right Femoral Shaft with Internal Fixation Device, Open Approach (ICD-10-PCS; principal; 2017-02-27 13:00)
DX: S72.321A Displaced transverse fracture of shaft of right femur, initial encounter for closed fracture (principal); M97.01XA Periprosthetic fracture around internal prosthetic right hip joint, initial encounter; E87.1 Hypo-osmolality and hyponatremia; D62 Acute posthemorrhagic anemia; K21.9 Gastro-esophageal reflux disease without esophagitis; E78.5 Hyperlipidemia, unspecified; Z79.84 Long term (current) use of oral hypoglycemic drugs; Z86.73 Personal history of transient ischemic attack (TIA), and cerebral infarction without residual deficits; E86.0 Dehydration; R00.0 Tachycardia, unspecified; E86.1 Hypovolemia; E11.42 Type 2 diabetes mellitus with diabetic polyneuropathy; I11.9 Hypertensive heart disease without heart failure; R07.89 Other chest pain; R50.82 Postprocedural fever; T80.89XA Other complications following infusion, transfusion and therapeutic injection, initial encounter; R21 Rash and other nonspecific skin eruption; D50.9 Iron deficiency anemia, unspecified; E11.65 Type 2 diabetes mellitus with hyperglycemia; I16.0 Hypertensive urgency; R33.9 Retention of urine, unspecified; E83.51 Hypocalcemia; W01.0XXA Fall on same level from slipping, tripping and stumbling without subsequent striking against object, initial encounter; Y93.89 Activity, other specified; Y92.099 Unspecified place in other non-institutional residence as the place of occurrence of the external cause; Y99.8 Other external cause status; Y84.8 Other medical procedures as the cause of abnormal reaction of the patient, or of later complication, without mention of misadventure at the time of the procedure
CPT/HCPCS: 36415; 36430; 71010-TC; 73523-TC; 73552-TC-RT; 76000-TC; 80048; 80053; 81003; 81015; 82436; 82550; 82553; 82570; 82728; 83540; 83550; 83735; 84100; 84133; 84300; 84484; 85025; 85027; 85610; 85730; 86078; 86850; 86900; 86901; 86922; 87086; 88300-TC; 93005; 93010; 94010; 94760; 97116-GP; 97161-GP; 99283-25; J1644; P9038; P9058

== ENCOUNTER 2024-11-18 19:03 | Observation (INO) | payer OTHER ==
[2024-11-18 20:05] LABS: ABSOLUTE IMMATURE GRANULOCYTES 0.02 x10^3/uL (0.0-0.031); BASOPHILS # 0.01 x10^3/uL (0.01-0.08); EOSINOPHIL % 0.0 % (0.7-5.8); EOSINOPHILS # 0.00 x10^3/uL (0.04-0.36); MCHC 31.8 g/dl (32.2-35.5); MEAN CELL VOLUME 95.0 fl (79.4-94.8); MEAN PLT VOLUME 10.1 fl (9.4-12.3); MONOCYTE # 0.61 x10^3/uL (0.24-0.86); MONOCYTE % 7.3 % (4.7-12.5); RDW 13.5 % (12.5-17.0)
[2024-11-18 20:13] LABS: INR 0.96 (0.83-1.09); PROTHROMBIN TIME (PATIENT) 10.6 SEC (9.7-13.0)
[2024-11-18 20:16] LABS: ACTIVATED PTT 34.1 SECONDS (25.2-36.5)
[2024-11-18 20:41] LABS: GLUCOSE,RANDOM 131.0 mg/dL (74-106)
[2024-11-18 20:42] LABS: CO2 22.0 mmol/L (21-32); TOT PROT 7.8 g/dl (6.4-8.2)
[2024-11-18 20:44] LABS: ALK PHOS 104.0 U/L (40-150)
[2024-11-18 20:47] LABS: CREATININE 0.48 mg/dL (0.55-1.3); SGOT/AST 25.0 U/L (5-34); SGPT/ALT 19.0 U/L (0-55)
[2024-11-18] MEDS ORDERED: ACETAMINOPHEN INJECTION 100 ML ONE (20:48)
[2024-11-18] MEDS: ACETAMINOPHEN 1000 MG/100 ML BAG IVPB ONE (21:04)
[2024-11-18] MEDS ORDERED: ACETAMINOPHEN 500 MG TABLET (FP) ONE (21:25)
[2024-11-18] MEDS ORDERED: MORPHINE SULFATE 2 MG/ML SYRINGE ONE (23:59)
[2024-11-19] MEDS: morphine CARPU-JECT 4 MG/1 ML DISP.SYRIN IVPUSH ONE (00:09)
[2024-11-19 00:19] LABS: MCHC 31.7 g/dl (32.2-35.5); MEAN CELL VOLUME 94.6 fl (79.4-94.8); MEAN PLT VOLUME 10.0 fl (9.4-12.3); RDW 13.5 % (12.5-17.0)
[2024-11-19] MEDS ORDERED: PANTOPRAZOLE SODIUM 40 MG/100 ML BAG IVPB ONE (01:07)
[2024-11-19] MEDS ORDERED: PANTOPRAZOLE SODIUM 40 MG VIAL ONE (01:09)
[2024-11-19] MEDS: PANTOPRAZOLE SODIUM 40 MG VIAL IVPUSH ONE (01:27)
[2024-11-19] MEDS ORDERED: ACETAMINOPHEN 1000 MG/100 ML BAG IVPB PRN (02:41)
[2024-11-19] MEDS: SODIUM CHLORIDE 1,000 ML IV SCH (03:29)
[2024-11-19 03:40] VITALS: BMI 22.2
[2024-11-19 07:24] LABS: ABSOLUTE IMMATURE GRANULOCYTES 0.02 x10^3/uL (0.0-0.031); BASOPHILS # 0.01 x10^3/uL (0.01-0.08); EOSINOPHIL % 0.0 % (0.7-5.8); EOSINOPHILS # 0.00 x10^3/uL (0.04-0.36); MCHC 31.5 g/dl (32.2-35.5); MEAN CELL VOLUME 94.0 fl (79.4-94.8); MEAN PLT VOLUME 9.9 fl (9.4-12.3); MONOCYTE # 0.65 x10^3/uL (0.24-0.86); MONOCYTE % 6.1 % (4.7-12.5); RDW 13.6 % (12.5-17.0)
[2024-11-19 07:58] LABS: GLUCOSE,RANDOM 176.0 mg/dL (74-106)
[2024-11-19 08:00] LABS: CO2 23.0 mmol/L (21-32)
[2024-11-19 08:04] LABS: CREATININE 0.64 mg/dL (0.55-1.3)
[2024-11-19 16:10] LABS: HIV INTERPRETATION NEGATIVE (NEGATIVE)
[2024-11-19 16:11] LABS: HCV DIAGNOSTIC IN-HOUSE W/RFLX NON-REACTIVE (NONREACTIVE)
[2024-11-19 19:13] LABS: ABSOLUTE IMMATURE GRANULOCYTES 0.01 x10^3/uL (0.0-0.031); BASOPHILS # 0.01 x10^3/uL (0.01-0.08); EOSINOPHIL % 0.0 % (0.7-5.8); EOSINOPHILS # 0.00 x10^3/uL (0.04-0.36); MCHC 31.0 g/dl (32.2-35.5); MEAN CELL VOLUME 95.6 fl (79.4-94.8); MEAN PLT VOLUME 10.1 fl (9.4-12.3); MONOCYTE # 0.62 x10^3/uL (0.24-0.86); MONOCYTE % 7.9 % (4.7-12.5); RDW 13.9 % (12.5-17.0)
[2024-11-19] MEDS: POLYETHYLENE GLYCOL (HEALTHYLAX) 3350 17 GM PACKET PO SCH (21:26)
[2024-11-19] MEDS: GABAPENTIN 100 MG CAPSULE PO SCH (21:26)
[2024-11-20 07:33] LABS: ABSOLUTE IMMATURE GRANULOCYTES 0.02 x10^3/uL (0.0-0.031); BASOPHILS # 0.02 x10^3/uL (0.01-0.08); EOSINOPHIL % 0.0 % (0.7-5.8); EOSINOPHILS # 0.00 x10^3/uL (0.04-0.36); MCHC 31.0 g/dl (32.2-35.5); MEAN CELL VOLUME 95.2 fl (79.4-94.8); MEAN PLT VOLUME 10.1 fl (9.4-12.3); MONOCYTE # 0.57 x10^3/uL (0.24-0.86); MONOCYTE % 8.9 % (4.7-12.5); RDW 14.0 % (12.5-17.0)
[2024-11-20 07:44] LABS: GLUCOSE,RANDOM 61.0 mg/dL (74-106)
[2024-11-20 07:45] LABS: TOT PROT 6.4 g/dl (6.4-8.2)
[2024-11-20 07:46] LABS: CO2 19.0 mmol/L (21-32)
[2024-11-20 07:50] LABS: CREATININE 0.66 mg/dL (0.55-1.3); SGOT/AST 19.0 U/L (5-34); SGPT/ALT 11.0 U/L (0-55)
[2024-11-20 08:05] LABS: ALK PHOS 85.0 U/L (40-150)
[2024-11-20] MEDS: FERROUS SO4 325 MG TABLET (FP) PO SCH (10:13)
[2024-11-20] MEDS: PANTOPRAZOLE SODIUM 40 MG VIAL IVPUSH SCH (10:13)
[2024-11-20 10:31] LABS: IRON SERUM 39.0 ug/dL (50-175)
[2024-11-20] MEDS: ATORVASTATIN CA 10 MG TABLET (FP) PO SCH (21:07)
[2024-11-20 22:03] VITALS: RESP 18
[2024-11-21 06:59] LABS: ABSOLUTE IMMATURE GRANULOCYTES 0.01 x10^3/uL (0.0-0.031); BASOPHILS # 0.03 x10^3/uL (0.01-0.08); EOSINOPHIL % 0.0 % (0.7-5.8); EOSINOPHILS # 0.00 x10^3/uL (0.04-0.36); MCHC 31.5 g/dl (32.2-35.5); MEAN CELL VOLUME 93.9 fl (79.4-94.8); MEAN PLT VOLUME 10.5 fl (9.4-12.3); MONOCYTE # 0.44 x10^3/uL (0.24-0.86); MONOCYTE % 9.1 % (4.7-12.5); RDW 13.7 % (12.5-17.0)
[2024-11-21 07:11] LABS: GLUCOSE,RANDOM 116.0 mg/dL (74-106); TOT PROT 6.4 g/dl (6.4-8.2)
[2024-11-21 07:14] LABS: ALK PHOS 80.0 U/L (40-150)
[2024-11-21 07:17] LABS: CREATININE 0.62 mg/dL (0.55-1.3); SGOT/AST 21.0 U/L (5-34); SGPT/ALT 12.0 U/L (0-55)
[2024-11-21 08:03] LABS: CO2 20.0 mmol/L (21-32)
[2024-11-21 12:00] VITALS: BP 137/70; PULSE 89; TEMP 96
== END 2024-11-21 13:26 | disposition home health service (06) ==
LOC: JER 19:03 → INTOOBSV 11-19 00:14 → JERBED 11-19 00:14 → J4S 11-19 02:47
PROVIDERS: ADMIT Internal Medicine; ATTEND Internal Medicine
PROC: 3E033NZ Introduction of Analgesics, Hypnotics, Sedatives into Peripheral Vein, Percutaneous Approach (ICD-10-PCS; principal; 2024-11-19)
PROC: 3E033GC Introduction of Other Therapeutic Substance into Peripheral Vein, Percutaneous Approach (ICD-10-PCS; 2024-11-19)
PROC: 3E0337Z Introduction of Electrolytic and Water Balance Substance into Peripheral Vein, Percutaneous Approach (ICD-10-PCS; 2024-11-19)
DX: K62.5 Hemorrhage of anus and rectum (principal); E11.9 Type 2 diabetes mellitus without complications; I10 Essential (primary) hypertension; Z79.01 Long term (current) use of anticoagulants; E78.5 Hyperlipidemia, unspecified; Z86.73 Personal history of transient ischemic attack (TIA), and cerebral infarction without residual deficits
CPT/HCPCS: 36415; 74174-TC; 80048; 80053; 82272; 82728; 83036; 83540; 83550; 85025; 85027; 85610; 85730; 86803; 86850; 86900; 86901; 87086; 87389; 93005; 93010; 96361; 96374; 96375; 96376; 97116-GP; 97161-GP; 99285-25; G0378